=== PATIENT | female | born 1940 | race Caucasian/White ===

== ENCOUNTER 2018-06-10 07:21 | Day surgery (SDC) | payer MEDICARE, BC ==
[~2018-06-10 07:21] MED LIST: SODIUM CHLORIDE 0.9% 1,000 ML IV SCH; ceFAZolin IN SWFI 2 GM/20 ML SYRINGE IVP ONE
[2018-06-10 08:02] LABS: Glucose,Whole Blood 137 mg/dL (75-99)
[2018-06-10 08:04] VITALS: RESP 16; TEMP 98.5
[2018-06-10 08:22] LABS: Basophils % (A) 0 %; Eosinophils # (A) 0.2 k/uL (0-0.7); Eosinophils % (A) 4 %; HCT 20.8 % (34.0-46.0); Lymphocytes # (A) 0.7 k/uL (1.0-4.8); Lymphocytes % (A) 15 %; MCH 30.4 pg (25.0-35.0); MCHC 33.5 g/dL (31.0-37.0); MCV 90.7 fL (80.0-100.0); Mean Platelet Volume 7.1; Monocytes # (A) 0.3 k/uL (0-1.0); Monocytes % (A) 5 %; Neutrophils # (A) 3.6 k/uL (1.3-7.7); Neutrophils % (A) 74 %; Platelet Count 167 k/uL (150-450); RBC 2.29 m/uL (3.80-5.40); RDW 14.1 % (11.5-15.5); WBC 4.8 k/uL (3.8-10.6)
[2018-06-10] MEDS ORDERED: MIDAZOLAM (PF) 2 MG/2 ML VIAL IV ONE (09:16)
[2018-06-10] MEDS: LIDOCAINE 1% INJ 10MG/ML (20 ML MDV) ONE ×2 (09:19→09:20)
[2018-06-10] MEDS ORDERED: ACETAMINOPHEN TAB 325 MG TAB PO PRN (09:31)
--- NOTE | 2018-06-10 09:35 | P.PCN ---
Date of Procedure: 06/10/18 Postoperative Diagnosis: History of loop recorder insertion Procedure(s) Performed: Removal of the loop recorder Description of Procedure: This 78-year-old female had history of loop recorder insertion. Patient was referred for removal of the loop recorder. Patient was brought to the lab in a fasting state. She was prepped and draped in the usual fashion. The skin over the existing device was infiltrated with lidocaine. She small incision was made in the medial end of the device. The device was pulled out of the pocket without any difficulty. 2 stay sutures were applied to close the incision. No other complications. Plan: Patient will be discharged home later today. Follow-up in the office in about one week time.
[2018-06-10] MEDS ORDERED: amLODIPine 5 MG TAB ONE (09:44)
[2018-06-10 11:45] VITALS: BP 145/73; PULSE 62
== END 2018-06-10 11:45 | disposition home or self-care (01) ==
LOC: CATHEP 07:21
PROVIDERS: ATTEND Internal Medicine Cardiovascular Disease
DX: Z45.09 Encounter for adjustment and management of other cardiac device (principal); I25.10 Atherosclerotic heart disease of native coronary artery without angina pectoris; E78.2 Mixed hyperlipidemia; E11.9 Type 2 diabetes mellitus without complications; I10 Essential (primary) hypertension; F32.9 Major depressive disorder, single episode, unspecified; Z82.49 Family history of ischemic heart disease and other diseases of the circulatory system; Z79.82 Long term (current) use of aspirin; Z79.899 Other long term (current) drug therapy; Z79.4 Long term (current) use of insulin; Z79.890 Hormone replacement therapy; Z79.1 Long term (current) use of non-steroidal anti-inflammatories (NSAID)
CPT/HCPCS: 85025; 33286; J2001; J0690; J2250

== ENCOUNTER 2018-06-29 07:51 | Day surgery (SDC) | payer MEDICARE, BC ==
[2018-06-28 10:03] VITALS: BMI 29.2
[2018-06-29 08:40] VITALS: TEMP 97.9
[2018-06-29] MEDS ORDERED: NA PHOS,M-B/NA PHOS,DI-BA 133 ML ENEMA RECTAL ONE ×2 (08:50→08:59)
[2018-06-29 09:14] LABS: Glucose,Whole Blood 262 mg/dL (75-99)
[2018-06-29] MEDS: LACTATED RINGERS 1,000 ML IV SCH ×2 (09:19→09:51)
[2018-06-29] MEDS ORDERED: INSULIN ASPART (NovoLOG) 100 UNIT/ML VIAL SQ ONE (09:44)
[2018-06-29] MEDS ORDERED: fentaNYL (PF) 50 MCG/ML 2 ML AMP ONE (09:55)
[2018-06-29] MEDS ORDERED: PROPOFOL 10 MG/ML 20 ML VIAL IV ONE (09:55)
[2018-06-29] MEDS ORDERED: LIDOCAINE 1% INJ 10MG/ML (20 ML MDV) ONE (09:55)
[2018-06-29 10:29] VITALS: RESP 16
[2018-06-29 10:46] VITALS: BP 106/55; PULSE 57
--- NOTE | 2018-06-29 11:12 | P.PCN ---
Date of Procedure: 06/29/18 Procedure(s) Performed: Procedures: 1. Esophagogastroduodenoscopy and biopsy. 2. Colonoscopy and biopsy. Preoperative diagnosis: Iron deficiency anemia and incontinence of stools. Postoperative diagnosis: 1. Sliding hiatal hernia with LA grade B distal esophagitis. 2. Mild gastritis and duodenitis. 3. Multiple biopsies obtained from the duodenum, antrum and esophagus. 4. Colon and terminal ileum within normal limits. 5. Multiple biopsies obtained from the terminal ileum and right colon. Preparation: HalfLytely prep. Sedation: Was provided by anesthesia. Brief clinical history: The patient is a 78-year-old female who was evaluated in the office last month regarding complaints of fecal incontinence, weight loss and anemia. Her last colonoscopy was approximately 10 years prior. There is family history of colon cancer in her sister. Procedure: With the patient on her left lateral decubitus position and after informed consent and adequate sedation, I passed the Olympus-GIF H 190 video upper endoscope through the cricopharyngeus down the esophagus. GE junction was around 36 cm from the incisors and there was a 2 cm sliding hiatal hernia. The distal esophagus showed couple short erosions terminating at the level of the GE junction consistent with LA grade B distal esophagitis. There were no strictures or Crystal's esophagus. The endoscope was then passed into the stomach which was insufflated with air and inspected in detail including the retroflex view in the cardia. There was some mottling and erythema in the antrum but no ulcers or erosions. Pyloric channel did not show any ulcers. Duodenal bulb, post bulbar area and descending duodenum showed some mottling and erythema with no ulcers or gastric outlet obstruction. I obtained biopsies from the duodenum, antrum and esophagus then the endoscope was withdrawn and I proceeded to perform the colonoscopy. The perianal area was inspected and it did not show any fissures or fistulas. There were no masses felt on digital rectal examination. The Olympus CFH 190L video colonoscope was then inserted in the rectum in the usual fashion and advanced to the cecum. I intubated the ileocecal valve and examined the terminal ileum. Terminal ileum and colon appeared healthy with no edema, erythema, friability, ulceration, exudation or spontaneous bleeding. No polyps or tumors were seen or any obvious diverticular disease or other pathology. I obtained biopsies from the right colon and terminal ileum then I retroflexed the endoscope in the rectum before the endoscope was withdrawn. The patient tolerated the procedure well. Plan: The patient was reassured and I discussed with her family. Will await biopsy results. Further plans based on her course and biopsy results. I will keep you updated on her progress.
== END 2018-06-29 11:14 | disposition home or self-care (01) ==
LOC: ORWHC2ENDO 07:51
DX: K29.80 Duodenitis without bleeding (principal); K29.50 Unspecified chronic gastritis without bleeding; D50.9 Iron deficiency anemia, unspecified; R15.9 Full incontinence of feces; K44.9 Diaphragmatic hernia without obstruction or gangrene; I10 Essential (primary) hypertension; M19.90 Unspecified osteoarthritis, unspecified site; K20.9 Esophagitis, unspecified; F32.9 Major depressive disorder, single episode, unspecified; E11.9 Type 2 diabetes mellitus without complications; Z79.4 Long term (current) use of insulin; Z79.899 Other long term (current) drug therapy; Z80.0 Family history of malignant neoplasm of digestive organs; Z91.040 Latex allergy status; Z96.653 Presence of artificial knee joint, bilateral
CPT/HCPCS: 88305; 45380; 43239; J2001; J3010; J2704

== ENCOUNTER 2018-12-31 09:32 | Inpatient (IN) | payer MEDICARE, BC ==
[2018-12-31] MEDS ORDERED: ACETAMINOPHEN TAB 500 MG TAB PO STA (10:00)
[2018-12-31] MEDS ORDERED: IBUPROFEN 600 MG TAB PO STA (10:00)
--- NOTE | 2018-12-31 10:02 | ED ---
Back Pain HPI - General Chief Complaint: Back Pain/Injury Stated Complaint: back pain Time Seen by Provider: 12/31/18 09:35 Source: patient, EMS, RN notes reviewed, old records reviewed Limitations: no limitations - History of Present Illness Initial Comments: Routine is a 78-year-old female. She presents today for evaluation for back pain, and pain range on her right leg for the past few weeks. She also complains of fever and generally feeling unwell and weak. Patient states she's also had a cough and some cold like symptoms. She rested emergency department with a fever 101.38. She's been on antibiotics for urinary tract infections, has completed 2 rounds of antibiotics that were given to her by Dr. Crooks. She has no urine cultures have facility at this time. She states that she continues to have some dip mild dysuria. She is supposed to have 3 days of antibiotics left. - Related Data Home Medications Medication Instructions Recorded Confirmed Citalopram Hydrobromide 40 mg PO HS 01/02/16 12/31/18 [Citalopram HBr] Losartan [Cozaar] 25 mg PO BID 01/02/16 12/31/18 buPROPion XL [Wellbutrin XL] 300 mg PO DAILY 01/02/16 12/31/18 Insulin Glargine,Hum.rec.anlog See Protocol SQ HS 06/10/18 12/31/18 [Basaglar Kwikpen U-100] Insulin Aspart [NovoLOG Flexpen] See Protocol SQ TID 12/31/18 12/31/18 Nitrofurantoin Monohyd/M-Cryst 100 mg PO Q12HR 12/31/18 12/31/18 [Macrobid] Allergies Allergy/AdvReac Type Severity Reaction Status Date / Time latex Allergy Unknown Rash/Hives Verified 12/31/18 11:30 Review of Systems ROS Statement: Those systems with pertinent positive or pertinent negative responses have been documented in the HPI. ROS Other: All systems not noted in ROS Statement are negative. Past Medical History Past Medical History: Chest Pain / Angina, Diabetes Mellitus, Hypertension, Osteoarthritis (OA) Additional Past Medical History / Comment(s): VARICOSE VEINS, BACK PAIN, intermittent stool incontinence last 3-4 months, intermittent abd. pain History of Any Multi-Drug Resistant Organisms: None Reported Past Surgical History: Hysterectomy, Joint Replacement Additional Past Surgical History / Comment(s): ELIJAH TOTAL KNEES, LEFT THUMB, LOOP RECORDER removed, left shoulder replacement Past Anesthesia/Blood Transfusion Reactions: No Reported Reaction Type of Cardiac Device: Loop Device Placement Date:: 2014 Past Psychological History: Anxiety, Depression Smoking Status: Never smoker Past Alcohol Use History: None Reported Past Drug Use History: None Reported - Past Family History Sister(s) Family Medical History: Cancer Additional Family Medical History / Comment(s): SISTER #1 LEUKEMIA. SISTER #2 STOMACH CA General Exam - General Exam Comments Initial Comments: This is a 70-year-old female. Alert and oriented 3. Limitations: no limitations General appearance: alert, in no apparent distress Head exam: Present: atraumatic, normocephalic, normal inspection Eye exam: Present: normal appearance, other (patient on oxygen) ENT exam: Present: normal exam, mucous membranes moist Neck exam: Present: normal inspection. Absent: tenderness, meningismus, lymphadenopathy Respiratory exam: Present: normal lung sounds bilaterally Cardiovascular Exam: Present: regular rate, normal rhythm, normal heart sounds. Absent: systolic murmur, diastolic murmur, rubs, gallop, clicks GI/Abdominal exam: Present: soft, tenderness (LLQ tenderness), normal bowel sounds. Absent: distended, guarding, rebound, rigid Extremities exam: Present: normal inspection, full ROM, normal capillary refill. Absent: tenderness, pedal edema, joint swelling, calf tenderness Back exam: Present: normal inspection Neurological exam: Present: alert, oriented X3, CN II-XII intact Psychiatric exam: Present: normal affect, normal mood Skin exam: Present: warm, dry, intact, normal color. Absent: rash Course Vital Signs 12/31/18 12/31/18 12/31/18 09:35 11:15 12:10 Temperature 101.3 F H 101.1 F H 102 F H Pulse Rate 99 97 88 Respiratory 22 22 22 Rate Blood Pressure 197/93 188/78 149/62 O2 Sat by Pulse 94 L 96 96 Oximetry 12/31/18 13:15 Temperature 99.6 F Pulse Rate 81 Respiratory 20 Rate Blood Pressure 131/57 O2 Sat by Pulse 98 Oximetry - Reevaluation(s) Reevaluation #1: 12/31/18 12:38 is reevaluated this time, resting in bed, she denies any chest pain or shortness of breath. Continues to have fever 102. Medical Decision Making - Medical Decision Making This is a 70-year-old female presents today for evaluation for concern for fever, generalized pain and weakness. She complains of upper respiratory infection last week but denies any coughing or chest pain. Patient complains of some left-sided abdominal pain lower back pain. She has been treated for UTIs with multiple rounds of antibiotics. Recently on Macrobid. This time her urine sample appears clean. We did obtain a culture. Blood cultures were completed. She has a fever 102 upon arrival. She was given IV fluids Motrin Tylenol. Elevated lactic acid 2.5. Some leukocytosis noted at 13,000. Patient's chest x-ray shows no acute changes. Flu testing was negative. Patient's obtained complains some minor pain in her abdomen, discussed concern for possible diverticulitis would proceed with a computed tomography scan. Computed tomography scan shows no evidence of diverticulitis but does show evidence of pneumonic infiltrate concerning for pneumonia. We'll treat the Patient with Rocephin and azithromycin at this time. Patient is agreeable to this plan. His custody case with Dr. Mera who discussed this case with Dr. Polo patient's PCP who will admit the Patient for IV antibiotics and fluids. - Lab Data Result diagrams: 12/31/18 10:10 12/31/18 10:10 Lab Results 12/31/18 12/31/18 12/31/18 Range/Units 10:10 10:10 10:10 WBC 13.6 H (3.8-10.6) k/uL RBC 4.36 (3.80-5.40) m/uL Hgb 13.2 (11.4-16.0) gm/dL Hct 39.2 (34.0-46.0) % MCV 89.8 (80.0-100.0) fL MCH 30.4 (25.0-35.0) pg MCHC 33.8 (31.0-37.0) g/dL RDW 12.8 (11.5-15.5) % Plt Count 267 (150-450) k/uL Neutrophils % 92 % Lymphocytes % 3 % Monocytes % 3 % Eosinophils % 1 % Basophils % 0 % Neutrophils # 12.4 H (1.3-7.7) k/uL Lymphocytes # 0.5 L (1.0-4.8) k/uL Monocytes # 0.4 (0-1.0) k/uL Eosinophils # 0.2 (0-0.7) k/uL Basophils # 0.0 (0-0.2) k/uL PT (9.0-12.0) sec INR (<1.2) APTT (22.0-30.0) sec Sodium 138 (137-145) mmol/L Potassium 4.4 (3.5-5.1) mmol/L Chloride 104 (98-107) mmol/L Carbon Dioxide 24 (22-30) mmol/L Anion Gap 10 mmol/L BUN 17 (7-17) mg/dL Creatinine 0.97 (0.52-1.04) mg/dL Est GFR (CKD-EPI)AfAm 65 (>60 ml/min/1.73 sqM) Est GFR (CKD-EPI)NonAf 56 (>60 ml/min/1.73 sqM) Glucose 209 H (74-99) mg/dL POC Glucose (mg/dL) (75-99) mg/dL POC Glu Olive Brine Tester ID Plasma Lactic Acid Miquel (0.7-2.0) mmol/L Calcium 8.7 (8.4-10.2) mg/dL Total Bilirubin 0.6 (0.2-1.3) mg/dL AST 25 (14-36) U/L ALT 19 (9-52) U/L Alkaline Phosphatase 113 (38-126) U/L Total Protein 7.3 (6.3-8.2) g/dL Albumin 3.7 (3.5-5.0) g/dL Urine Color Urine Appearance (Clear) Urine pH (5.0-8.0) Ur Specific [place] (1.001-1.035) Urine Protein (Negative) Urine Glucose (UA) (Negative) Urine Ketones (Negative) Urine Blood (Negative) Urine Nitrite (Negative) Urine Bilirubin (Negative) Urine Urobilinogen (<2.0) mg/dL Ur Leukocyte Esterase (Negative) Urine RBC (0-5) /hpf Urine WBC (0-5) /hpf Urine Mucus (None) /hpf Influenza Type A RNA Not Detected (Not Detectd) Influenza Type B (PCR) Not Detected (Not Detectd) 12/31/18 12/31/18 12/31/18 Range/Units 10:10 10:10 11:15 WBC (3.8-10.6) k/uL RBC (3.80-5.40) m/uL Hgb (11.4-16.0) gm/dL Hct (34.0-46.0) % MCV (80.0-100.0) fL MCH (25.0-35.0) pg MCHC (31.0-37.0) g/dL RDW (11.5-15.5) % Plt Count (150-450) k/uL Neutrophils % % Lymphocytes % % Monocytes % % Eosinophils % % Basophils % % Neutrophils # (1.3-7.7) k/uL Lymphocytes # (1.0-4.8) k/uL Monocytes # (0-1.0) k/uL Eosinophils # (0-0.7) k/uL Basophils # (0-0.2) k/uL PT 10.3 (9.0-12.0) sec INR 1.0 (<1.2) APTT 22.4 (22.0-30.0) sec Sodium (137-145) mmol/L Potassium (3.5-5.1) mmol/L Chloride (98-107) mmol/L Carbon Dioxide (22-30) mmol/L Anion Gap mmol/L BUN (7-17) mg/dL Creatinine (0.52-1.04) mg/dL Est GFR (CKD-EPI)AfAm (>60 ml/min/1.73 sqM) Est GFR (CKD-EPI)NonAf (>60 ml/min/1.73 sqM) Glucose (74-99) mg/dL POC Glucose (mg/dL) (75-99) mg/dL POC Glu Olive Brine Tester ID Plasma Lactic Acid Miquel 2.5 H* (0.7-2.0) mmol/L Calcium (8.4-10.2) mg/dL Total Bilirubin (0.2-1.3) mg/dL AST (14-36) U/L ALT (9-52) U/L Alkaline Phosphatase (38-126) U/L Total Protein (6.3-8.2) g/dL Albumin (3.5-5.0) g/dL Urine Color Yellow Urine Appearance Clear (Clear) Urine pH 7.0 (5.0-8.0) Ur Specific [place] 1.012 (1.001-1.035) Urine Protein 1+ H (Negative) Urine Glucose (UA) 1+ H (Negative) Urine Ketones Negative (Negative) Urine Blood Negative (Negative) Urine Nitrite Negative (Negative) Urine Bilirubin Negative (Negative) Urine Urobilinogen <2.0 (<2.0) mg/dL Ur Leukocyte Esterase Negative (Negative) Urine RBC 1 (0-5) /hpf Urine WBC 1 (0-5) /hpf Urine Mucus Rare H (None) /hpf Influenza Type A RNA (Not Detectd) Influenza Type B (PCR) (Not Detectd) 12/31/18 12/31/18 Range/Units 11:25 13:14 WBC (3.8-10.6) k/uL RBC (3.80-5.40) m/uL Hgb (11.4-16.0) gm/dL Hct (34.0-46.0) % MCV (80.0-100.0) fL MCH (25.0-35.0) pg MCHC (31.0-37.0) g/dL RDW (11.5-15.5) % Plt Count (150-450) k/uL Neutrophils % % Lymphocytes % % Monocytes % % Eosinophils % % Basophils % % Neutrophils # (1.3-7.7) k/uL Lymphocytes # (1.0-4.8) k/uL Monocytes # (0-1.0) k/uL Eosinophils # (0-0.7) k/uL Basophils # (0-0.2) k/uL PT (9.0-12.0) sec INR (<1.2) APTT (22.0-30.0) sec Sodium (137-145) mmol/L Potassium (3.5-5.1) mmol/L Chloride (98-107) mmol/L Carbon Dioxide (22-30) mmol/L Anion Gap mmol/L BUN (7-17) mg/dL Creatinine (0.52-1.04) mg/dL Est GFR (CKD-EPI)AfAm (>60 ml/min/1.73 sqM) Est GFR (CKD-EPI)NonAf (>60 ml/min/1.73 sqM) Glucose (74-99) mg/dL POC Glucose (mg/dL) 218 H 176 H (75-99) mg/dL POC Glu Olive Brine Tester ID Greg Garcia Plasma Lactic Acid Miquel (0.7-2.0) mmol/L Calcium (8.4-10.2) mg/dL Total Bilirubin (0.2-1.3) mg/dL AST (14-36) U/L ALT (9-52) U/L Alkaline Phosphatase (38-126) U/L Total Protein (6.3-8.2) g/dL Albumin (3.5-5.0) g/dL Urine Color Urine Appearance (Clear) Urine pH (5.0-8.0) Ur Specific [place] (1.001-1.035) Urine Protein (Negative) Urine Glucose (UA) (Negative) Urine Ketones (Negative) Urine Blood (Negative) Urine Nitrite (Negative) Urine Bilirubin (Negative) Urine Urobilinogen (<2.0) mg/dL Ur Leukocyte Esterase (Negative) Urine RBC (0-5) /hpf Urine WBC (0-5) /hpf Urine Mucus (None) /hpf Influenza Type A RNA (Not Detectd) Influenza Type B (PCR) (Not Detectd) 12/31/18 10:30 EKG performed at 1014 shows sinus tachycardia multiple moderate voltage criteria for LVH. May be normal variant. Borderline EKG. Ventricular rate of 102 bpm. Verbal is 122 ms. QS duration is 76 ms. QT QTc is 344/448 ms. - Radiology Data Radiology results: report reviewed CXR No evidence for acute pulmonary disease. CT head and pelvis shows patchy basilar infiltrates may reflect pneumonia. No Acute intra-abdominal process identified at this time. Disposition Clinical Impression: Fever, Pneumonia Disposition: ADMITTED IP TO THIS HOSP Condition: Stable Is patient prescribed a controlled substance at d/c from ED?: No Referrals: Jon Polo DO [Primary Care Provider] - 1-2 days Time of Disposition: 14:05
[2018-12-31] MEDS: SODIUM CHLORIDE 0.9% 500 ML 500 ML IV SCH ×4 (10:28→11:39)
[2018-12-31 10:32] LABS: Basophils % (A) 0 %; Eosinophils # (A) 0.2 k/uL (0-0.7); Eosinophils % (A) 1 %; HCT 39.2 % (34.0-46.0); HGB 13.2 gm/dL (11.4-16.0); Lymphocytes # (A) 0.5 k/uL (1.0-4.8); Lymphocytes % (A) 3 %; MCH 30.4 pg (25.0-35.0); MCHC 33.8 g/dL (31.0-37.0); MCV 89.8 fL (80.0-100.0); Mean Platelet Volume 5.8; Monocytes # (A) 0.4 k/uL (0-1.0); Monocytes % (A) 3 %; Neutrophils # (A) 12.4 k/uL (1.3-7.7); Neutrophils % (A) 92 %; Platelet Count 267 k/uL (150-450); RBC 4.36 m/uL (3.80-5.40); RDW 12.8 % (11.5-15.5); WBC 13.6 k/uL (3.8-10.6)
[2018-12-31 10:39] LABS: Appearance,Urine Clear (Clear); Bilirubin,Urine Negative (Negative); Blood,Urine Negative (Negative); Color,Urine Yellow; Glucose,Urine (UA) 1+ (Negative); Ketones,Urine Negative (Negative); Leukocyte Esterase,Urine Negative (Negative); Mucus,Urine Rare /hpf; Nitrite,Urine Negative (Negative); Protein,Urine 1+ (Negative); RBC,Urine 1 /hpf (0-5); Specific Gravity,Urine 1.012 (1.001-1.035); Urobilinogen,Urine <2.0 mg/dL (<2.0)
[2018-12-31 10:44] LABS: Albumin 3.7 g/dL (3.5-5.0); Calcium 8.7 mg/dL (8.4-10.2); Potassium 4.4 mmol/L (3.5-5.1); Total Bilirubin 0.6 mg/dL (0.2-1.3); Total Protein 7.3 g/dL (6.3-8.2)
--- NOTE | 2018-12-31 10:53 | XR ---
EXAMINATION TYPE: XR chest 2V DATE OF EXAM: 12/31/2018 COMPARISON: None HISTORY: Shortness of breath TECHNIQUE: Frontal and lateral views of the chest are obtained. FINDINGS: Scattered senescent parenchymal changes noted. Hyperinflation compatible with COPD. No evidence for infiltrate. No evidence for atelectasis. Heart size is stable. Mediastinal structures are stable and grossly unremarkable. No evidence for hilar prominence. Degenerative changes dorsal spine. IMPRESSION: 1. No evidence for acute pulmonary disease.
[2018-12-31 11:26] LABS: Glucose,Whole Blood 218 mg/dL (75-99)
[2018-12-31 11:43] LABS: Partial Thromboplastin Time 22.4 sec (22.0-30.0); Prothrombin Time 10.3 sec (9.0-12.0)
[2018-12-31] MEDS: SODIUM CHLORIDE 0.9% 1,000 ML IV SCH ×4 (12:06→21:36)
[2018-12-31] MEDS ORDERED: cefTRIAXone IN SWFI 1,000 MG/10 ML SYRINGE IVP STA (12:37)
--- NOTE | 2018-12-31 13:13 | CT ---
EXAMINATION TYPE: CT abdomen pelvis w con DATE OF EXAM: 12/31/2018 COMPARISON: None HISTORY: LLQ pain with fever CT DLP: 1037.7 mGycm CONTRAST: CT scan of the abdomen and pelvis is performed without Oral Contrast and with IV Contrast, patient in jected with 100 mL of Isovue 300. FINDINGS: LUNG BASES-: No visible nodule. Patchy basilar densities may reflect pneumonic infiltrate. Correlate clinically. The left lower lobe. LIVER/GB: No calcified gallstones. No space occupying hepatic lesion. Biliary tree is of normal ca liber. PANCREAS: No inflammation. No distinct mass. SPLEEN: No splenic enlargement. No lesion seen. Calcified splenic granuloma. ADRENALS: No nodule. No thickening. KIDNEYS/BLADDER: No hydronephrosis. No nephrolithiasis. No distinct renal mass. Urinary bladder g rossly unremarkable. BOWEL: Normal appendix. Normal bowel caliber. No inflammation. GENITAL ORGANS: No gross abnormality. LYMPH NODES: No greater than 1cm abdominal or pelvic lymph nodes are appreciated. AORTA: No significant abnormality. OSSEOUS STRUCTURES: No significant abnormality is seen. OTHER: No significant additional abnormality is seen. IMPRESSION: 1. Patchy basilar infiltrates may reflect pneumonia. 2. No acute intra-abdominal process appreciated at this time.
[2018-12-31 13:16] LABS: Glucose,Whole Blood 176 mg/dL (75-99)
[2018-12-31] MEDS ORDERED: AZITHROMYCIN 500 MG in SODIUM CHLORIDE 0.9% 250 ML IVPB STA (14:05)
[2018-12-31] MEDS ORDERED: PNEUMONIA PROTOCOL UTILIZED 1 EACH MISC PO PRN (14:05)
[2018-12-31 15:07] LABS: Glucose,Whole Blood 196 mg/dL (75-99)
[2018-12-31 16:46] LABS: Glucose,Whole Blood 195 mg/dL (75-99)
[2018-12-31] MEDS: IPRATROPIUM-ALBUTEROL 3 ML NEB INHALATION SCH ×2 (16:51→20:36)
[2018-12-31] MEDS: methylPREDNISolone SOD SUCCI 125 MG/2 ML VIAL IV SCH (17:28)
[2018-12-31] MEDS: INSULIN ASPART (NovoLOG) 100 UNIT/ML VIAL SQ SCH ×2 (17:28→21:33)
[2018-12-31 17:50] VITALS: BMI 31.8
[2018-12-31] MEDS: ACETAMINOPHEN TAB 325 MG TAB PO PRN (18:03)
[2018-12-31 21:21] LABS: Glucose,Whole Blood 364 mg/dL (75-99)
[2018-12-31] MEDS: INSULIN DETEMIR (LEVEMIR) 100 UNIT/ML SYR SQ SCH (21:33)
[2018-12-31] MEDS: CITALOPRAM HYDROBROMIDE 20 MG TAB PO SCH (21:33)
[2018-12-31] MEDS: LOSARTAN 25 MG TAB PO SCH (21:33)
[2019-01-01] MEDS: methylPREDNISolone SOD SUCCI 125 MG/2 ML VIAL IV SCH ×3 (02:12→13:03)
[2019-01-01] MEDS: SODIUM CHLORIDE 0.9% 1,000 ML IV SCH ×4 (02:13→13:12)
[2019-01-01] MEDS: ACETAMINOPHEN TAB 325 MG TAB PO PRN ×2 (02:36→13:03)
[2019-01-01 02:40] LABS: Glucose,Whole Blood 287 mg/dL (75-99)
[2019-01-01 07:17] LABS: Glucose,Whole Blood 344 mg/dL (75-99)
--- NOTE | 2019-01-01 07:41 | XR ---
EXAMINATION TYPE: XR chest 2V DATE OF EXAM: 01/01/2019 HISTORY: pneumonia. REFERENCE: Previous study dated 12/31/2018. FINDINGS: There is a left shoulder arthroplasty in place. There is worsening vascular congestion. There is evidence of pulmonary edema. Heart size upper limits of normal. There are small, bilateral effusions. IMPRESSION: WORSENING CHANGES OF PULMONARY EDEMA. SUPERIMPOSED PNEUMONIA COULD NOT BE EXCLUDED.
[2019-01-01] MEDS: INSULIN ASPART (NovoLOG) 100 UNIT/ML VIAL SQ SCH ×4 (07:48→20:53)
[2019-01-01] MEDS: IPRATROPIUM-ALBUTEROL 3 ML NEB INHALATION SCH ×4 (09:06→19:50)
[2019-01-01] MEDS: LOSARTAN 25 MG TAB PO SCH ×2 (09:51→20:53)
[2019-01-01] MEDS: buPROPion XL 300 MG TAB.ER.24H PO SCH (09:52)
[2019-01-01 11:48] LABS: Glucose,Whole Blood 431 mg/dL (75-99)
[2019-01-01] MEDS: AZITHROMYCIN 500 MG in SODIUM CHLORIDE 0.9% 250 ML IVPB SCH (13:03)
[2019-01-01 14:01] LABS: Hemoglobin A1C 9.7 % (4.0-6.0)
--- NOTE | 2019-01-01 16:28 | P.HPIM ---
History of Present Illness H&P Date: 01/01/19 Chief Complaint: Chills and rigors Ms. Davila is a 78-year-old female with a past medical history of diabetes mellitus, hypertension, osteoarthritis coming into the hospital with a chief complaint of chills and rigors. Patient states that she has been generally feeling weak and tired and was having urinary incontinence and immediately. So she was seen by urology and gynecology and was told that her bladder was slightly lower than normal but not to the extent where she needs surgery. She was also told that she has a UTI and and has been taking antibiotics for the pas t few days. Also reports stool incontinence for the past 5-6 months intermittently. She also reports some tingling sensation going on in her left foot for the past few months. In the past couple of days patient noticed that she has been having rigors and feeling sick so came into the ED for further evaluation. At the time of admission in the ER patient was found to have a temperature of 101.3 along with an elevated white count. So she had a chest x- ray and also CT of her abdomen and pelvis which showed patchy basilar infiltrates that reflect pneumonia. So the patient has been started on ceftriaxone and Zithromax along with Solu-Medrol and IV fluids and admitted to the floor. Since being on the floors patient's blood sugars have been running on the higher side. She also got a repeat chest x-ray as she was complaining of difficulty in breathing this morning which showed pulmonary vascular congestion. Currently the patient is lying in bed appears to be mildly short of breath. She denies having any difficulty in breathing but was having cough for the past couple of days. She was tested negative for influenza in the ED. Patient complains of generalized weakness, chills and thinks she might have had fever at home. She denies having any dysuria or hematuria. No abdominal pain. No diarrhea or constipation. Complains of urinary and bowel and incontinence intermittently g oing on for few months. Denies having any syncopal episodes. No weakness in her extremities. Patient states that she had a fall 3 or 4 times in the past couple of months but did not hurt herself. Review of Systems REVIEW OF SYSTEMS: PSYCH: No anxiety or depression NEURO:No c/o weakness of the extremties, No facial droop, No speech abnormalities. VASCULAR: No lower extremity swelling HEMATOLOGIC: No history of easy bleeding and bruising . No recent infections . RESPIRATORY: No SOB, No chest discomfort. IMMUNE: No infections INTEGUMENT: no rashes OPHTHALMOLOGIC: No blurry vision and no eye discharge : Recent UTI PAPER SUPERVISOR: No bleeding PV CARDIAC: No chest pain , shortness of breath , paroxysmal nocturnal dyspnea MUSCULOSKELETAL : No Aches or pains in the joints or muscles. GI: No abdominal pain, Nausea or vomiting. No constipation or diarrhea. 30 nervous system stem negative except for the mentioned above Past Medical History Past Medical History: Chest Pain / Angina, Diabetes Mellitus, Hypertension, Osteoarthritis (OA) Additional Past Medical History / Comment(s): VARICOSE VEINS, BACK PAIN, intermittent stool incontinence last 3-4 months, intermittent abd. pain History of Any Multi-Drug Resistant Organisms: None Reported Past Surgical History: Hysterectomy, Joint Replacement Additional Past Surgical History / Comment(s): ELIJAH TOTAL KNEES, LEFT THUMB, LOOP RECORDER removed, left shoulder replacement Past Anesthesia/Blood Transfusion Reactions: No Reported Reaction Type of Cardiac Device: Loop Device Placement Date:: 2014 Past Psychological History: Anxiety, Depression Smoking Status: Never smoker Past Alcohol Use History: None Reported Past Drug Use History: None Reported - Past Family History Sister(s) Family Medical History: Cancer Additional Family Medical History / Comment(s): SISTER #1 LEUKEMIA. SISTER #2 STOMACH CA Medications and Allergies Home Medications Medication Instructions Recorded Confirmed Type Citalopram Hydrobromide 40 mg PO HS 01/02/16 12/31/18 History [Citalopram HBr] Losartan [Cozaar] 25 mg PO BID 01/02/16 12/31/18 History buPROPion XL [Wellbutrin XL] 300 mg PO DAILY 01/02/16 12/31/18 History Insulin Glargine,Hum.rec.anlog See Protocol SQ HS 06/10/18 12/31/18 History [Basaglar Kwikpen U-100] Insulin Aspart [NovoLOG Flexpen] See Protocol SQ TID 12/31/18 12/31/18 History Nitrofurantoin Monohyd/M-Cryst 100 mg PO Q12HR 12/31/18 12/31/18 History [Macrobid] Allergies Allergy/AdvReac Type Severity Reaction Status Date / Time latex Allergy Unknown Rash/Hives Verified 12/31/18 11:30 Physical Exam Vitals: Vital Signs Temp Pulse Pulse Resp BP Pulse Ox 01/01/19 14:07 97.5 F L 98 18 134/63 97 01/01/19 12:30 76 01/01/19 12:18 76 01/01/19 09:15 80 01/01/19 09:06 80 01/01/19 07:00 97.6 F 64 14 184/74 99 01/01/19 04:35 16 01/01/19 02:15 16 12/31/18 20:49 78 12/31/18 20:36 76 98 12/31/18 19:48 98.1 F 71 16 143/67 99 Intake and Output 01/01/19 01/01/19 01/01/19 06:59 14:59 22:59 Intake Total 592 Balance 592 Intake: Oral 592 Other: Voiding Method Toilet # Voids 1 1 GEN. APPEARANCE: Mild shortness of breath HEAD EXAM: atraumatic, normocephalic, normal inspection EYE EXAM: normal appearance, PERRL, EOMI. Absent: scleral icterus, conjunctival injection, periorbital swelling ENT EXAM: normal exam, mucous membranes moist NECK EXAM: normal inspection. Absent: tenderness, meningismus, full ROM, lymphadenopathy RESPIRATORY EXAM: normal lung sounds bilaterally. No wheezing. Few crackles at the lower lung bases. CARDIOVASCULAR EXAM: Tachycardia. S1 and S2 heard. GI/ABDOMINAL EXAM: soft, normal bowel sounds. No guarding or rigidity. No suprapubic tenderness. EXTREMITIES EXAM: No edema. BACK EXAM: No point tenderness. Rectal exam : Mildly decreased rectal tone. NEUROLOGICAL EXAM: alert, oriented X3, no focal neurological deficits. Strength is 4 out of 5 in all 4 extremities. Gait is normal- she was able to take 3-4 steps but was feeling weak and went back to bed PSYCHIATRIC EXAM: normal affect, normal mood SKIN EXAM: warm, dry, intact, normal color. Absent: rash Results CBC & Chem 7: 12/31/18 10:10 01/01/19 16:16 Labs: Abnormal Lab Results - Last 24 Hours (Table) 12/31/18 12/31/18 12/31/18 Range/Units 10:10 16:44 18:37 POC Glucose (mg/dL) 195 H (75-99) mg/dL Hemoglobin A1c 9.7 H (4.0-6.0) % Plasma Lactic Acid Miquel 3.5 H* (0.7-2.0) mmol/L 12/31/18 01/01/19 01/01/19 Range/Units 21:20 02:39 07:15 POC Glucose (mg/dL) 364 H 287 H 344 H (75-99) mg/dL Hemoglobin A1c (4.0-6.0) % Plasma Lactic Acid Miquel (0.7-2.0) mmol/L 01/01/19 Range/Units 11:47 POC Glucose (mg/dL) 431 H (75-99) mg/dL Hemoglobin A1c (4.0-6.0) % Plasma Lactic Acid Miquel (0.7-2.0) mmol/L Microbiology - Last 24 Hours (Table) 12/31/18 10:10 Blood Culture - Preliminary Blood No Growth after 24 hours Thrombosis Risk Factor Assmnt - Choose All That Apply Each Factor Represents 1 point: Obesity (BMI >25) Each Risk Factor Represents 3 Points: Age 75 years or older Thrombosis Risk Factor Assessment Total Risk Factor Score: 4 Thrombosis Risk Factor Assessment Level: Moderate Risk Assessment and Plan Assessment: ASSESSMENT Sepsis secondary to pneumonia Tingling sensation in the left foot Urinary/bowel incontinence -intermittently Type 2 diabetes mellitus with hyperglycemia Pulmonary vascular congestion Hypertension History of left shoulder replacement PLAN: Patient has been started on ceftriaxone and Zithromax for her pneumonia which will be continued. As the patient is not wheezing will discontinue her Solu-Medrol. As a chest x-ray from this morning was showing pulmonary vascular congestion we'll discontinue the IV fluids. We'll check a d-dimer. As the patient has intermittent incontinence of bowel and bladder we will get an MRI of the lumbar spine. She has been restarted on all her home medications. Further recommendations to follow depending on the progress of the patient. The treatment plan was discussed in detail with the patient at bedside.
[2019-01-01 16:44] LABS: Glucose,Whole Blood 513 mg/dL (75-99)
[2019-01-01 18:23] LABS: Glucose,Whole Blood 501 mg/dL (75-99)
--- NOTE | 2019-01-01 18:55 | CT ---
EXAMINATION TYPE: CT chest angio for PE DATE OF EXAM: 01/01/2019 COMPARISON: None HISTORY: Shortness of breath. CT DLP: 371 mGycm Automated exposure control for dose reduction was used. CONTRAST: CT Chest for pulmonary embolism performed with with IV Contrast, patient injected with 80 mL of Isovu e 370. FINDINGS: There are 3-D post processed images. There are bilateral pleural effusions. Thoracic aorta is atheromatous. There is no aneurysm or dissec tion. Ascending aorta measures 3.3 cm. There are some peritracheal lymph nodes that measure up to 1.5 cm. There are no hilar masses. There is normal contrast opacification of the pulmonary arteries. I see no filling defect. There is some patchy infiltrate and atelectasis in both lungs with reticular density that is seen in the periphery and consistent with pulmonary interstitial fibrosis. There is some spurring in the thoracic spine. I see no bony destructive process. There is no compress ion fracture. The ribs appear intact. There are a few bilateral axillary lymph nodes that measure up to 1.8 cm. IMPRESSION: No evidence of pulmonary embolism. Pleural effusions with bilateral pulmonary infiltrates and atelectasis. There is underlying pulmonary interstitial fibrosis. There is mild mediastinal adenopathy.
[2019-01-01 20:42] LABS: Glucose,Whole Blood 391 mg/dL (75-99)
[2019-01-01] MEDS: INSULIN DETEMIR (LEVEMIR) 100 UNIT/ML SYR SQ SCH (20:53)
[2019-01-01] MEDS: CITALOPRAM HYDROBROMIDE 20 MG TAB PO SCH (20:53)
[2019-01-01] MEDS ORDERED: ENOXAPARIN 40 MG/0.4 ML SYRINGE SQ STA (21:53)
[2019-01-02] MEDS: SODIUM CHLORIDE 0.9% 1,000 ML IV SCH (01:16)
[2019-01-02 02:12] LABS: Glucose,Whole Blood 227 mg/dL (75-99)
[2019-01-02 05:02] LABS: Glucose,Whole Blood 197 mg/dL (75-99)
[2019-01-02] MEDS: IPRATROPIUM-ALBUTEROL 3 ML NEB INHALATION SCH ×5 (05:03→19:47)
[2019-01-02] MEDS ORDERED: FUROSEMIDE 10 MG/ML 4 ML VIAL IV STA (05:16)
[2019-01-02] MEDS ORDERED: FUROSEMIDE 10 MG/ML 2 ML VIAL IV ONE (05:25)
[2019-01-02] MEDS ORDERED: LABETALOL 200 MG TAB PO STA (05:26)
[2019-01-02] MEDS ORDERED: LORazepam 0.5 MG TAB PO ONE (05:27)
[2019-01-02 06:19] LABS: HCT 37.3 % (34.0-46.0); HGB 12.2 gm/dL (11.4-16.0); MCH 29.9 pg (25.0-35.0); MCHC 32.6 g/dL (31.0-37.0); MCV 91.9 fL (80.0-100.0); Mean Platelet Volume 6.8; Platelet Count 319 k/uL (150-450); RBC 4.06 m/uL (3.80-5.40); RDW 13.3 % (11.5-15.5)
--- NOTE | 2019-01-02 06:29 | XR ---
EXAM: XR Chest, 1 View CLINICAL HISTORY: XR Reason: sob TECHNIQUE: Frontal view of the chest. COMPARISON: 01/01/19 FINDINGS: Lungs: Worsening infiltrates bilaterally Pleural space: Unremarkable. No pneumothorax. Heart: Unremarkable. No cardiomegaly. Mediastinum: Unremarkable. Bones/joints: Unremarkable. IMPRESSION: Worsening infiltrates bilaterally
[2019-01-02 06:33] LABS: Calcium 8.8 mg/dL (8.4-10.2); Potassium 4.3 mmol/L (3.5-5.1)
[2019-01-02 07:04] LABS: Glucose,Whole Blood 162 mg/dL (75-99)
[2019-01-02] MEDS: INSULIN ASPART (NovoLOG) 100 UNIT/ML VIAL SQ SCH ×4 (07:42→20:36)
[2019-01-02 07:50] LABS: Band Neutrophils % 1 %; Myelocytes # (M) 0.28 k/uL (0); Myelocytes % 1 %; Neutrophils % (M) 88 %; Nucleated Red Blood Cells 0 /100 WBC (0-0); Total Cells Counted 200
[2019-01-02] MEDS: ACETAMINOPHEN TAB 325 MG TAB PO PRN ×2 (07:57→17:31)
[2019-01-02] MEDS: LOSARTAN 25 MG TAB PO SCH ×2 (07:58→20:44)
[2019-01-02] MEDS: buPROPion XL 300 MG TAB.ER.24H PO SCH (07:58)
[2019-01-02 10:22] LABS: Glucose,Whole Blood 54 mg/dL (75-99)
[2019-01-02 10:41] LABS: Glucose,Whole Blood 95 mg/dL (75-99)
[2019-01-02 11:54] LABS: Glucose,Whole Blood 84 mg/dL (75-99)
[2019-01-02] MEDS: AZITHROMYCIN 500 MG in SODIUM CHLORIDE 0.9% 250 ML IVPB SCH (12:53)
[2019-01-02 17:10] LABS: Glucose,Whole Blood 89 mg/dL (75-99)
--- NOTE | 2019-01-02 17:14 | P.PN ---
Subjective Progress Note Date: 01/02/19 Principal diagnosis: sepsis due to pneumonia Ms. Davila is a 78-year-old female with a past medical history of diabetes mellitus, hypertension, osteoarthritis coming into the hospital with a chief complaint of chills and rigors. Patient states that she has been generally feeling weak and tired and was having urinary incontinence and immediately. So she was seen by urology and gynecology and was told that her bladder was slightly lower than normal but not to the extent where she needs surgery. She was also told that she has a UTI and and has been taking antibiotics for the past few days. Also reports stool incontinence for the past 5-6 months intermittently. She also reports some tingling sensation going on in her left foot for the past few months. In the past couple of days patient noticed that she has been having rigors and feeling sick so came into the ED for further evaluation. At the time of admission in the ER patient was found to have a temperature of 101.3 along with an elevated white count. So she had a chest x- ray and also CT of her abdomen and pelvis which showed patchy basilar infiltrates that reflect pneumonia. So the patient has been started on ceftriaxone and Zithromax along with Solu-Medrol and IV fluids and admitted to the floor. Patient complains of generalized weakness, chills and thinks she might have had fever at home. She denies having any dysuria or hematuria. No abdominal pain. No diarrhea or constipation. Complains of urinary and bowel and incontinence intermittently going on for few months. Denies having any syncopal episodes. No weakness in her extremities. Patient states that she had a fall 3 or 4 times in the past couple of months but did not hurt herself. On 01/02/2019 -last night patient developed acute shortness of breath, her blood pressure was high. So she was given and dose of IV Lasix after which her symptoms subsided. Patient's blood pressure has been running on the higher side. Since being off of Solu-Medrol patient's blood sugars have been on the lower side. She is getting ceftriaxone and Zithromax for community-acquired pneumonia. Patient denies having any tingling and jerking sensation in her lower extremities or upper extremities. she denies having any fevers chills or rigors. She still complains of difficulty in breathing and is on3 L of nasal cannula saturating in the high 90s. There is a slight jump in her white count from yesterday probably because of steroids.she denies having any dysuria or hematuria. No abdominal pain nausea vomiting or diarrhea. Patient had a CT angiogram of the chest that was negative for PE but there are bilateral pulmonary infiltrates with atelectasis and underlying pulmonary interstitialfibrosis and mild mediastinal adenopathy. Active Medications Acetaminophen (Tylenol Tab) 650 mg PO Q6HR PRN PRN Reason: Fever and/ or Mild Pain Last Admin: 01/02/19 07:57 Dose: 650 mg Documented by: Albuterol/Ipratropium (Duoneb 0.5 Mg-3 Mg/3 Ml Soln) 3 ml INHALATION RT-QID [facility] Last Admin: 01/02/19 16:01 Dose: 3 ml Documented by: Alprazolam (Xanax) 0.25 mg PO TID PRN PRN Reason: Anxiety Bupropion HCl (Wellbutrin Xl) 300 mg PO DAILY [facility] Last Admin: 01/02/19 07:58 Dose: 300 mg Documented by: Citalopram Hydrobromide (Celexa) 40 mg PO HS [facility] Last Admin: 01/01/19 20:53 Dose: 40 mg Documented by: Enoxaparin Sodium (Lovenox) 40 mg SQ DAILY [facility] Sodium Chloride (Saline 0.9%) 1,000 mls @ 20 mls/hr IV .Q24H [facility] Last Admin: 01/02/19 01:16 Dose: Not Given Documented by: Ceftriaxone Sodium 1 gm/ (Sodium Chloride) 50 mls @ 100 mls/hr IVPB Q24HR [facility] Azithromycin 500 mg/ Sodium (Chloride) 250 mls @ 250 mls/hr IVPB DAILY [facility] Insulin Aspart (Novolog) 0 unit SQ ACHS [facility]; Protocol Last Admin: 01/02/19 12:14 Dose: Not Given Documented by: Insulin Detemir (Levemir) 30 unit SQ HS [facility] Last Admin: 01/01/19 20:53 Dose: 30 unit Documented by: Losartan Potassium (Cozaar) 25 mg PO BID [facility] Last Admin: 01/02/19 07:58 Dose: 25 mg Documented by: Miscellaneous Information (Pneumonia Protocol Utilized) 1 each PO ONCE PRN PRN Reason: Per Protocol Objective - Vital Signs Vital signs: Vital Signs Temp 98.4 F 01/02/19 13:32 Pulse 64 01/02/19 16:12 Resp 16 01/02/19 13:32 BP 154/76 01/02/19 13:32 Pulse Ox 96 01/02/19 13:32 Intake & Output 01/01/19 01/02/19 01/02/19 18:59 06:59 18:59 Intake Total 3423 989 7256 Output Total 500 1950 Balance 1188 90 -624 Weight 78.925 kg Intake: Intake, IV Titration 350 Amount Azithromycin 500 mg In 250 Sodium Chloride 0.9% 250 ml @ 250 mls/hr IVPB DAILY@1200 [facility] Rx#: [id number] cefTRIAXone 1 gm In 100 Sodium Chloride 0.9% 50 ml @ 100 mls/hr IVPB Q24HR [facility] Rx#:[id number] Oral 1188 590 976 Output: Urine 500 1950 Other: Voiding Method Toilet # Voids 1 1 - Exam GEN. APPEARANCE: Mild shortness of breath HENT : No pallor. No icterus. PERRLA. No JVD. RESPIRATORY EXAM: patient has dry crackles in the lower and middle lobes bilaterally. CARDIOVASCULAR EXAM: Tachycardia. S1 and S2 heard. GI/ABDOMINAL EXAM: soft, normal bowel sounds. No guarding or rigidity. No suprapubic tenderness. EXTREMITIES EXAM: No edema. NEUROLOGICAL EXAM: alert, oriented X3, no focal neurological deficits. Strength is 4 out of 5 in all 4 extremities. SKIN EXAM: warm, dry, intact, normal color. Absent: rash - Labs CBC & Chem 7: 01/02/19 05:54 01/02/19 05:54 Labs: Abnormal Lab Results - Last 24 Hours (Table) 01/01/19 01/01/19 01/01/19 Range/Units 16:16 18:22 20:41 WBC (3.8-10.6) k/uL Neutrophils # (Manual) (1.3-7.7) k/uL Monocytes # (Manual) (0-1.0) k/uL Myelocytes # (Manual) (0) k/uL Carbon Dioxide (22-30) mmol/L BUN 25 H (7-17) mg/dL Creatinine 1.08 H (0.52-1.04) mg/dL Glucose (74-99) mg/dL POC Glucose (mg/dL) 501 H 391 H (75-99) mg/dL 01/02/19 01/02/19 01/02/19 Range/Units 02:11 05:01 05:54 WBC 28.0 H (3.8-10.6) k/uL Neutrophils # (Manual) 24.90 H (1.3-7.7) k/uL Monocytes # (Manual) 1.40 H (0-1.0) k/uL Myelocytes # (Manual) 0.28 H (0) k/uL Carbon Dioxide (22-30) mmol/L BUN (7-17) mg/dL Creatinine (0.52-1.04) mg/dL Glucose (74-99) mg/dL POC Glucose (mg/dL) 227 H 197 H (75-99) mg/dL 01/02/19 01/02/19 01/02/19 Range/Units 05:54 07:03 10:21 WBC (3.8-10.6) k/uL Neutrophils # (Manual) (1.3-7.7) k/uL Monocytes # (Manual) (0-1.0) k/uL Myelocytes # (Manual) (0) k/uL Carbon Dioxide 20 L (22-30) mmol/L BUN 26 H (7-17) mg/dL Creatinine (0.52-1.04) mg/dL Glucose 171 H (74-99) mg/dL POC Glucose (mg/dL) 162 H 54 L (75-99) mg/dL Microbiology - Last 24 Hours (Table) 12/31/18 10:10 Blood Culture - Preliminary Blood No Growth after 48 hours Assessment and Plan Assessment: ASSESSMENT Sepsis secondary to pneumonia Tingling sensation in the left foot Urinary/bowel incontinence -intermittently Type 2 diabetes mellitus with hyperglycemia Pulmonary Interstitial fibrosis Hypertension History of left shoulder replacement Elevated BNP PLAN: patient received 60 mg of IV Lasix in the past 24 hours. Now with negative fluid balance of 1200 mL. Continue the patient on ceftriaxone and Zithromax recommended echo and pneumonia. CTA injury of the chest is negative for PE but showing bilateral infiltrates pulmonary interstitial fibrosis and mediastinal lymphadenopathy. MRA of the lumbar spine is pending. No red flags. As the patient's blood pressure is running high added hydralazine. As the patient's blood sugars have been running high and low, adjusting the insulin requirements. Echocardiogram pending. All her prognosis is guarded. Further recommendations to follow depending on the progress of the patient.
[2019-01-02] MEDS: ENOXAPARIN 40 MG/0.4 ML SYRINGE SQ SCH (17:28)
[2019-01-02] MEDS: ALPRAZolam 0.25 MG TAB PO PRN ×2 (17:31→23:25)
[2019-01-02] MEDS: IPRATROPIUM-ALBUTEROL 3 ML NEB INHALATION PRN ×2 (17:47→23:36)
[2019-01-02] MEDS: INSULIN DETEMIR (LEVEMIR) 100 UNIT/ML SYR SQ SCH (20:37)
[2019-01-02] MEDS: CITALOPRAM HYDROBROMIDE 20 MG TAB PO SCH (20:44)
[2019-01-02 20:53] LABS: Glucose,Whole Blood 155 mg/dL (75-99)
[2019-01-03] MEDS: SODIUM CHLORIDE 0.9% 1,000 ML IV SCH ×2 (00:12→23:31)
[2019-01-03] MEDS ORDERED: FUROSEMIDE 10 MG/ML 4 ML VIAL IV STA (00:27)
[2019-01-03 06:33] LABS: Basophils # (A) 0.2 k/uL (0-0.2); Basophils % (A) 1 %; Eosinophils # (A) 0.4 k/uL (0-0.7); Eosinophils % (A) 2 %; HCT 33.9 % (34.0-46.0); HGB 11.4 gm/dL (11.4-16.0); Lymphocytes # (A) 1.7 k/uL (1.0-4.8); Lymphocytes % (A) 9 %; MCH 30.4 pg (25.0-35.0); MCHC 33.5 g/dL (31.0-37.0); MCV 90.7 fL (80.0-100.0); Mean Platelet Volume 6.9; Monocytes % (A) 5 %; Neutrophils # (A) 14.6 k/uL (1.3-7.7); Neutrophils % (A) 81 %; Platelet Count 268 k/uL (150-450); RBC 3.74 m/uL (3.80-5.40); RDW 13.4 % (11.5-15.5)
[2019-01-03 06:48] LABS: Calcium 8.6 mg/dL (8.4-10.2); Potassium 3.7 mmol/L (3.5-5.1)
[2019-01-03 07:06] LABS: Glucose,Whole Blood 76 mg/dL (75-99)
[2019-01-03] MEDS: INSULIN ASPART (NovoLOG) 100 UNIT/ML VIAL SQ SCH ×4 (07:07→20:50)
[2019-01-03] MEDS: IPRATROPIUM-ALBUTEROL 3 ML NEB INHALATION SCH ×4 (07:54→18:58)
[2019-01-03] MEDS: buPROPion XL 300 MG TAB.ER.24H PO SCH (08:47)
[2019-01-03] MEDS: LOSARTAN 25 MG TAB PO SCH ×2 (08:48→20:48)
[2019-01-03] MEDS: FUROSEMIDE 20 MG TAB PO SCH ×2 (08:48→16:42)
[2019-01-03] MEDS: ENOXAPARIN 40 MG/0.4 ML SYRINGE SQ SCH (08:48)
[2019-01-03] MEDS ORDERED: AZITHROMYCIN 500 MG in SODIUM CHLORIDE 0.9% 250 ML IVPB SCH (09:00)
--- NOTE | 2019-01-03 11:00 | ECHOF ---
Referral Reason:sob MEASUREMENTS -------- HEIGHT: 157.5 cm WEIGHT: 78.9 kg BP: IVSd: 0.9 cm (0.6 - 1.1) LVIDd: 4.5 cm (3.9 - 5.3) LVPWd: 1.0 cm (0.6 - 1.1) IVSs: 1.3 cm LVIDs: 2.9 cm LVPWs: 1.6 cm LAESV Index (A-L): 27.43 ml/m Ao Diam: 2.9 cm (2.0 - 3.7) AV Cusp: 1.8 cm (1.5 - 2.6) LA Diam: 2.7 cm (2.7 - 3.8) MV EXCURSION: 17.701 mm (> 18.000) MV EF SLOPE: 61 mm/s (70 - 150) EPSS: 0.7 cm MV E Braulio: 0.96 m/s MV DecT: 306 ms MV A Braulio: 1.08 m/s MV E/A Ratio: 0.89 RAP: 5.00 mmHg RVSP: 37.64 mmHg TAPSE: 28.46 mm FINDINGS -------- Sinus rhythm. This was a technically good study. The left ventricular size is normal. Left ventricular wall thickness is normal. Overall left vent ricular systolic function is normal with, an EF between 55 - 60 %. Normal LAP Grade 1 Diastolic Dys function. The right ventricle is normal in size. The right ventricular systolic function is normal. The left atrial size is normal. Normal LA size by volume 22+/-6 ml/m2. The right atrial size is normal. The aortic valve is trileaflet and appears structurally normal. The mitral valve is normal. There is trace mitral regurgitation. The tricuspid valve appears structurally normal. Mild tricuspid regurgitation present. There is m ild pulmonary hypertension. The right ventricular systolic pressure, as measured by Doppler, is 37. 64mmHg. Pulmonic valve appears structurally normal. The aortic root size is normal. Normal inferior vena cava with normal inspiratory collapse consistent with estimated right atrial pre ssure of 5 mmHg. There is no pericardial effusion. CONCLUSIONS -------- 1. Sinus rhythm. 2. This was a technically good study. 3. The left ventricular size is normal. 4. Left ventricular wall thickness is normal. 5. Overall left ventricular systolic function is normal with, an EF between 55 - 60 %. 6. Normal LAP Grade 1 Diastolic Dysfunction. 7. The right ventricle is normal in size. 8. The right ventricular systolic function is normal. 9. The left atrial size is normal. 10. Normal LA size by volume 22+/-6 ml/m2. 11. The right atrial size is normal. 12. The aortic valve is trileaflet and appears structurally normal. 13. The mitral valve is normal. 14. There is trace mitral regurgitation. 15. The tricuspid valve appears structurally normal. 16. Mild tricuspid regurgitation present. 17. There is mild pulmonary hypertension. 18. The right ventricular systolic pressure, as measured by Doppler, is 37.64mmHg. 19. Pulmonic valve appears structurally normal. 20. The aortic root size is normal. 21. Normal inferior vena cava with normal inspiratory collapse consistent with estimated right atrial pressure of 5 mmHg. 22. There is no pericardial effusion. [employer] DEVELOPER: Kaela Owusu RDCS
--- NOTE | 2019-01-03 11:18 | CONS ---
CONSULTATION PULMONARY/CRITICAL CARE CONSULTATION: DATE OF CONSULTATION: January 03, 2019 REASON FOR CONSULTATION: Shortness of breath. This is a very pleasant 78-year-old female who continues to work. 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 It had gotten worse over the last couple of weeks, but even before then she was short of breath particularly on exertion. When she came to the emergency room in addition to complaining of back pain and some leg pain, she complained of cough and cold-like symptoms. She apparently had a fever in the emergency room of 101. She apparently had been given some antibiotics for a urinary tract infection. When talking to the patient, it is clear to me that she has more chronic lung issues. She has been having shortness of breath for many months and even years now. It appears that it has gotten worse here more recently. The shortness of breath is only noted on exertion but has become quite prominent. In addition, she admits to cough which is mostly dry but occasionally productive of phlegm. Currently, she is feeling much better since she has been here. She was admitted back on December 31 through the emergency room. Her primary care doctor is Dr. Jon Polo. She states that she does not see a lung doctor. She denies any history of any lung issues. Looking at her chest x-ray and CAT scan, it appears that the patient has developed pulmonary fibrosis/interstitial lung disease. This is likely developed over many months and even a few years. HOME MEDICATIONS: Home medications include citalopram, Cozaar, Wellbutrin, insulin, and Macrobid. I am not sure if Macrobid had been something she has used in the past or it has more of an acute antibiotic, but it is a concern because Macrobid has been associated with interstitial lung disease/pulmonary fibrosis. It should be never given to this patient again. ALLERGIES: Allergies are LATEX. MEDICAL HISTORY: Medical history includes angina, diabetes, hypertension, DJD, varicose veins, chronic back pain, fecal incontinence, intermittent abdominal pain, and chronic shortness of breath and cough. SURGICAL HISTORY: Surgical history includes hysterectomy, joint replacement including bilateral total knees, left thumb surgery, and a loop recorder that has been placed and then subsequently removed. She also had left shoulder surgery. SOCIAL HISTORY: Significant that she is a lifelong nonsmoker. Denies any alcohol use or illicit drug use. FAMILY HISTORY: Positive for a sister with leukemia and another sister with stomach cancer. The rest of her family history is not well documented. REVIEW OF SYSTEMS: CONSTITUTIONAL: Negative. NEUROLOGIC: Negative. HEENT: Negative. CARDIOVASCULAR: Negative. PULMONARY: Chronic shortness of breath, cough, chest congestion and occasional phlegm production. GI: Negative. : Negative. RHEUMATOLOGIC: Negative. IMMUNOLOGIC: Negative. ENDOCRINOLOGIC: Negative. DERMATOLOGIC: Negative. PHYSICAL EXAMINATION: VITAL SIGNS: Current vital signs are reviewed. Temperature is 97.9, heart rate 72, respiratory rate 16, blood pressure 188/69, mean 108 and 3 L saturation 97%. GENERAL: Appears in no acute distress. HEENT: Examination is grossly unremarkable. Nasal O2 noted. NECK: Supple. Full range of motion. No adenopathy. Neck veins are flat. CARDIOVASCULAR: Examination reveals regular rhythm and rate. Heart rate 75 per minute. S1, S2 normal. No S3, S4, or murmur. LUNGS: Reveal bibasilar crackles. They are Velcro in nature. She is mildly restricted in her breathing. No rhonchi or wheezes. ABDOMEN: Soft. Bowel sounds are heard. EXTREMITIES: Are intact. No significant cyanosis, clubbing, or edema. SKIN: Without rash. NEUROLOGIC: Examination is brief but nonfocal. LABS: Labs are reviewed. White count 18, hemoglobin 11.4, hematocrit 33.9, platelet count 268,000. Sodium 138, potassium 3.7, chloride 102, CO2 of 28. Anion gap 8. BUN and creatinine were 27 and 1.04. X-rays and labs are all reviewed. She had a chest x-ray on December 31 and another chest x-ray on the and a final chest x-ray on the 02 of January. She had a CTA on January 01, which was evaluated by me. There is no evidence of any pulmonary embolism. There is evidence of significant bilateral basilar and peripheral infiltrates consistent with interstitial lung disease/pulmonary fibrosis. Microbiology is thus far negative. Medications noted. She is currently on Zithromax and Rocephin. She is also on updrafts with albuterol and Atrovent. ASSESSMENT: 1. Acute on chronic shortness of breath and hypoxemic respiratory failure, likely secondary to pulmonary fibrosis and possibly complicated by either purulent tracheobronchitis or bronchopneumonia. 2. Angina pectoris. 3. Diabetes mellitus. 4. Hypertension. 5. Degenerative joint disease. 6. Varicose veins. 7. Chronic back pain. 8. History of fecal incontinence. 9. Recent use of Macrodantin which has been associated with pulmonary fibrosis if used chronically. PLAN: The patient's medications are appropriate. Hard to rule out underlying infection given her significant interstitial findings. The antibiotics are appropriate. She is feeling better. Breathing treatments are fine for now. I told the patient that I would like to see her in the office after discharge. She will need a complete pulmonary function test. Will talk about the possibility of lung biopsy. We will also talk about one of the newer treatments for pulmonary fibrosis either Esbriet or OFEV. Additional recommendations and suggestions are forthcoming. She will also need a 6-minute walk distance. MARYAN / VIKTOR: [id number] / MTDD
[2019-01-03 11:40] LABS: Glucose,Whole Blood 143 mg/dL (75-99)
--- NOTE | 2019-01-03 15:13 | MR ---
EXAMINATION TYPE: MR lumbar spine wo con DATE OF EXAM: 01/03/2019 COMPARISON: CT abdomen and pelvis 3 days ago HISTORY: Tingling in her left foot TECHNIQUE: Multiplanar, multisequence imaging of the lumbar spine is performed without IV contrast. FINDINGS: Sagittal images of the lumbar spine show vertebral body heights and alignment to remain sat isfactory. Multilevel disc desiccation is present. At this space heights are fairly well-maintained. The conus medullaris is normal in position and signal ending mid L1 level. Prominent hemangioma righ t L3 level redemonstrated. Mild multilevel anterior spurring. Axial images show at T12-L1 and L1-L2 levels to appear within normal limits. Axial images at the L2-L3 level show mild to moderate facet degenerative changes and ligamentum flavu m hypertrophy effacing posterolateral thecal sac with mild to moderate broad-based posterior disc pro trusion effacing anterior thecal sac. There is mild left greater than right bilateral anterior inferi or neural foraminal narrowing. Axial images at L3-L4 levels show [id number] facet degenerative changes and ligamentum flavum h ypertrophy effacing posterolateral thecal sac. There is mild broad disc bulge mildly effacing the ant erior thecal sac. There is mild left greater than right bilateral anterior inferior neural foraminal narrowing. Axial images at the L4-L5 level show moderate facet degenerative changes and ligamentum flavum hypert rophy effacing posterior lateral thecal sac. Mild broad disc bulge is seen. Bilateral neural foramina are patent. Axial images at L5-S1 level show moderate to advanced facet degenerative changes. There is broad disc bulge with right paracentral disc protrusion component effacing the anterior thecal sac. Bilateral n eural foramina are patent. Mild perinephric ill-defined fluid bilaterally redemonstrated, nonspecific finding. IMPRESSION: Multilevel degenerative changes in the mid to lower lumbar spine as detailed above. No la rge eccentric disc herniation seen to account for patient's asymmetric left-sided radiculopathy type symptoms however.
[2019-01-03 16:37] LABS: Glucose,Whole Blood 118 mg/dL (75-99)
[2019-01-03 20:42] LABS: Glucose,Whole Blood 185 mg/dL (75-99)
[2019-01-03] MEDS: CITALOPRAM HYDROBROMIDE 20 MG TAB PO SCH (20:48)
[2019-01-03] MEDS: INSULIN DETEMIR (LEVEMIR) 100 UNIT/ML SYR SQ SCH (20:50)
[2019-01-04 03:15] LABS: Glucose,Whole Blood 76 mg/dL (75-99)
[2019-01-04 06:41] LABS: Glucose,Whole Blood 84 mg/dL (75-99)
[2019-01-04] MEDS: INSULIN ASPART (NovoLOG) 100 UNIT/ML VIAL SQ SCH ×4 (07:04→20:38)
[2019-01-04] MEDS: IPRATROPIUM-ALBUTEROL 3 ML NEB INHALATION SCH ×4 (09:06→21:14)
[2019-01-04] MEDS: AZITHROMYCIN 500 MG TAB PO SCH (09:29)
[2019-01-04] MEDS: buPROPion XL 300 MG TAB.ER.24H PO SCH (09:29)
[2019-01-04] MEDS: FUROSEMIDE 20 MG TAB PO SCH ×2 (09:29→16:05)
[2019-01-04] MEDS: ENOXAPARIN 40 MG/0.4 ML SYRINGE SQ SCH (09:29)
[2019-01-04] MEDS: LOSARTAN 25 MG TAB PO SCH ×2 (09:29→20:37)
--- NOTE | 2019-01-04 11:39 | P.PN ---
Subjective Progress Note Date: 01/04/19 Principal diagnosis: Acute on chronic hypoxemic respiratory failure secondary to pulmonary fibrosis, complicated by purulent tracheobronchitis or bronchopneumonia. The patient is seen today 01/04/2019 in follow-up on the regular medical floor. She is currently sitting up at the bedside. Awake and alert in no acute distress. Breathing a bit easier today as compared to yesterday. Continues with a dry nonproductive cough. She is maintaining O2 saturation in low 90s on room air. She's afebrile. Blood culture reveals no growth. She is continued on DuoNeb inhalations, antibiotics in the form of ceftriaxone and azithromycin, oral diuretics. Objective - Vital Signs Vital signs: Vital Signs Temp 97.9 F 01/04/19 07:00 Pulse 69 01/04/19 08:15 Resp 16 01/04/19 08:15 BP 188/74 01/04/19 07:00 Pulse Ox 93 L 01/04/19 07:00 Intake & Output 01/03/19 01/04/19 01/04/19 18:59 06:59 18:59 Intake Total 590 480 Output Total 700 Balance -110 480 Weight 77 kg Intake: Oral 590 480 Output: Urine 700 Other: Voiding Method Toilet Toilet Toilet # Voids 1 - Exam GENERAL EXAM: Alert, active, comfortable in no apparent distress. On 4 L nasal cannula HEAD: Normocephalic. EYES: Normal reaction of pupils, equal size. NOSE: Clear with pink turbinates. THROAT: No erythema or exudates. NECK: No masses, no JVD. CHEST: No chest wall deformity. LUNGS: Equal air entry with bilateral crackles. CVS: S1 and S2 normal with no audible murmur, regular rhythm. ABDOMEN: No hepatosplenomegaly, normal bowel sounds, no guarding or rigidity. SPINE: No scoliosis or deformity SKIN: No rashes CENTRAL NERVOUS SYSTEM: No focal deficits, tone is normal in all 4 extremities. EXTREMITIES: There is no peripheral edema. No clubbing, no cyanosis. Peripheral pulses are intact. - Labs CBC & Chem 7: 01/03/19 05:51 01/03/19 05:51 Labs: Abnormal Lab Results - Last 24 Hours (Table) 01/03/19 01/03/19 01/03/19 Range/Units 11:38 16:36 20:41 POC Glucose (mg/dL) 143 H 118 H 185 H (75-99) mg/dL Microbiology - Last 24 Hours (Table) 12/31/18 10:10 Blood Culture - Preliminary Blood No Growth after 72 hours Assessment and Plan Assessment: #1 Acute on chronic shortness of breath and hypoxemic respiratory failure likely secondary to pulmonary fibrosis, complicated by purulent tracheobronchitis or bronchopneumonia. #2 Diabetes mellitus. #3 Hypertension. #4 Degenerative joint disease. #5 Chronic back pain. #6 Angina pectoris. #7 Recent use of Macrodantin. The patient was seen and evaluated by Dr. Hines. She is improved today as compared to yesterday. We'll continue with the current treatment plan. Continue DuoNeb inhalations. Continue antibiotics. Continue oral diuretics. She will follow-up in our office post discharge. We'll perform full pulmonary function testing, 6 minute walk and consider Esbriet or OFEV for her pulmonary fibrosis. We'll continue to follow make and make further recommendations based on her clinical status. I, the cosigning physician, performed a history & physical examination of the patient. Lungs sounds with few scattered crackles, diminished. Maintaining good O2 saturations in the 90s on room air. I discussed the assessment and plan of care with my nurse practitioner, Rowan Dixon. I attest to the above note as dictated by her.
[2019-01-04 11:41] LABS: Glucose,Whole Blood 160 mg/dL (75-99)
--- NOTE | 2019-01-04 13:13 | P.PN ---
Subjective Progress Note Date: 01/04/19 This is a 78-year-old female admitted with hypoxic respiratory failure, pulmonary fibrosis with pneumonia and multiple other medical issues. Maintained on nebulized bronchodilators, Rocephin, Zithromax and oral diuretics. Breathing improving with less wheezing. Reports nonproductive cough. T-max 99.1. Blood cultures reporting no growth Maintaining O2 sats in the low 90s on room air. Evaluated by PT with home care recommended at discharge. Blood sugars better controlled. Objective - Vital Signs Vital signs: Vital Signs Temp 97.9 F 01/04/19 07:00 Pulse 69 01/04/19 08:15 Resp 16 01/04/19 08:15 BP 188/74 01/04/19 07:00 Pulse Ox 93 L 01/04/19 07:00 Intake & Output 01/03/19 01/04/19 01/04/19 18:59 06:59 18:59 Intake Total 590 480 Output Total 700 Balance -110 480 Weight 77 kg Intake: Oral 590 480 Output: Urine 700 Other: Voiding Method Toilet Toilet Toilet # Voids 1 - Exam PHYSICAL EXAM: VITAL SIGNS: As above GENERAL: Sitting up in bed, no acute distress. HEENT: Conjunctivae normal. eyes normal. NECK: No JVD. No thyroid enlargement. No LNs CARDIOVASCULAR: S1, S2 regular.. No murmur RESPIRATION: Breath sounds diminished in the bases. No rhonchi, bilateral crackles. Occasional faint expiratory wheeze ABDOMEN: Soft, nondistended, nontender . No guarding. no masses palpable. No ascites, No hepatosplenomegaly.Bowel sounds heard. LEGS: No edema. no swelling PSYCHIATRY: Alert and oriented X3, mood and affect normal. NERVOUS SYSTEM: Cranial N 2-12 grossly normal. Moves all 4 limbs. Diffuse weakness, No focal deficits. Strength and sensation grossly intact. Skin: no rash - Labs CBC & Chem 7: 01/03/19 05:51 01/03/19 05:51 Labs: Abnormal Lab Results - Last 24 Hours (Table) 01/03/19 01/03/19 01/04/19 Range/Units 16:36 20:41 11:39 POC Glucose (mg/dL) 118 H 185 H 160 H (75-99) mg/dL Microbiology - Last 24 Hours (Table) 12/31/18 10:10 Blood Culture - Preliminary Blood No Growth after 96 hours Assessment and Plan Assessment: Acute hypoxic respiratory failure, secondary to most likely pulmonary fibrosis with bronchopneumonia -Sepsis, present on admission secondary to the above -Diabetes mellitus, uncontrolled, hyperglycemic,HGBA1c 9.7 -Hypertension -Degenerative joint disease -Chronic back pain Plan: Continue on current medication regime ,monitoring and symptomatic treatment. Maintain nebulized bronchodilators, antibiotics. Concrete Polisher and breastfeeding educator consulted, regarding elevated hemoglobin A1c. Increase ambulation as tolerated; as mentioned above physical therapy recommending home care discharge. Discharge planning in progress for tentatively for tomorrow pending pulmonary clearance. The impression and plan of care has been dictated as directed. : I performed a history and examination of this patient, discussed the same with the dictator. I agree with the dictator's note ,documented as a scribe. Any additional findings or plans will be noted.
[2019-01-04 15:13] LABS: Glucose,Whole Blood 46 mg/dL (75-99)
[2019-01-04 15:31] LABS: Glucose,Whole Blood 102 mg/dL (75-99)
[2019-01-04 16:28] LABS: Glucose,Whole Blood 64 mg/dL (75-99)
[2019-01-04 16:48] LABS: Glucose,Whole Blood 70 mg/dL (75-99)
[2019-01-04 20:27] LABS: Glucose,Whole Blood 193 mg/dL (75-99)
[2019-01-04] MEDS: INSULIN DETEMIR (LEVEMIR) 100 UNIT/ML SYR SQ SCH (20:37)
[2019-01-04] MEDS: CITALOPRAM HYDROBROMIDE 20 MG TAB PO SCH (20:37)
[2019-01-04] MEDS: SODIUM CHLORIDE 0.9% 1,000 ML IV SCH (23:18)
[2019-01-05 02:08] VITALS: PULSE 65
[2019-01-05 03:28] LABS: Glucose,Whole Blood 70 mg/dL (75-99)
[2019-01-05 06:32] LABS: Glucose,Whole Blood 52 mg/dL (75-99)
[2019-01-05 07:15] LABS: Glucose,Whole Blood 94 mg/dL (75-99)
[2019-01-05] MEDS: INSULIN ASPART (NovoLOG) 100 UNIT/ML VIAL SQ SCH (07:18)
[2019-01-05] MEDS: IPRATROPIUM-ALBUTEROL 3 ML NEB INHALATION SCH (07:52)
[2019-01-05] MEDS: FUROSEMIDE 20 MG TAB PO SCH (07:53)
[2019-01-05] MEDS: ENOXAPARIN 40 MG/0.4 ML SYRINGE SQ SCH (07:53)
[2019-01-05] MEDS: AZITHROMYCIN 500 MG TAB PO SCH (07:53)
[2019-01-05] MEDS: LOSARTAN 25 MG TAB PO SCH (07:53)
[2019-01-05] MEDS: buPROPion XL 300 MG TAB.ER.24H PO SCH (07:53)
[2019-01-05 08:14] LABS: Basophils # (A) 0.1 k/uL (0-0.2); Basophils % (A) 1 %; Eosinophils # (A) 0.8 k/uL (0-0.7); Eosinophils % (A) 8 %; HCT 34.6 % (34.0-46.0); HGB 11.6 gm/dL (11.4-16.0); Lymphocytes # (A) 2.6 k/uL (1.0-4.8); Lymphocytes % (A) 24 %; MCH 30.4 pg (25.0-35.0); MCHC 33.5 g/dL (31.0-37.0); MCV 90.5 fL (80.0-100.0); Monocytes # (A) 0.7 k/uL (0-1.0); Monocytes % (A) 6 %; Neutrophils # (A) 6.3 k/uL (1.3-7.7); Neutrophils % (A) 60 %; Platelet Count 305 k/uL (150-450); RBC 3.82 m/uL (3.80-5.40); RDW 13.1 % (11.5-15.5); WBC 10.6 k/uL (3.8-10.6)
[2019-01-05 08:28] LABS: Calcium 8.5 mg/dL (8.4-10.2); Potassium 4.1 mmol/L (3.5-5.1)
[2019-01-05 08:32] VITALS: BP 148/65; RESP 15; TEMP 98.1
--- NOTE | 2019-01-05 11:29 | P.PN ---
Subjective Progress Note Date: 01/05/19 Principal diagnosis: Acute on chronic hypoxemic respiratory failure secondary to pulmonary fibrosis, complicated by purulent tracheobronchitis or bronchopneumonia. The patient is seen today 01/04/2019 in follow-up on the regular medical floor. She is currently sitting up at the bedside. Awake and alert in no acute distress. Breathing a bit easier today as compared to yesterday. Continues with a dry nonproductive cough. She is maintaining O2 saturation in low 90s on room air. She's afebrile. Blood culture reveals no growth. She is continued on DuoNeb inhalations, antibiotics in the form of ceftriaxone and azithromycin, oral diuretics. The patient is seen today 01/05/2019 in follow-up on the regular medical floor. She is currently resting in bed. Awake and alert in no acute distress. Maintaining O2 saturations in the low 90s on room air. She's afebrile. H emodynamically stable. Blood culture reveals no growth. White count 10.6. Hemoglobin 11.6. Creatinine 1.02. Glucose 84. Objective - Vital Signs Vital signs: Vital Signs Temp 98.1 F 01/05/19 07:14 Pulse 65 01/05/19 07:14 Resp 15 01/05/19 07:14 BP 148/65 01/05/19 07:14 Pulse Ox 93 L 01/05/19 07:14 Intake & Output 01/04/19 01/05/19 01/05/19 18:59 06:59 18:59 Intake Total 350 480 480 Balance 350 480 480 Weight 75.5 kg Intake: Intake, IV Titration 50 Amount cefTRIAXone 1 gm In 50 Sodium Chloride 0.9% 50 ml @ 100 mls/hr IVPB Q24HR [facility] Rx#:[id number] Oral 300 480 480 Other: Voiding Method Toilet # Voids 3 2 - Exam GENERAL EXAM: Alert, pleasant 78-year-old female patient, fairly comfortable in no apparent distress. On 4 L nasal cannula HEAD: Normocephalic. EYES: Normal reaction of pupils, equal size. NOSE: Clear with pink turbinates. THROAT: No erythema or exudates. NECK: No masses, no JVD. CHEST: No chest wall deformity. LUNGS: Equal air entry with bilateral crackles. CVS: S1 and S2 normal with no audible murmur, regular rhythm. ABDOMEN: No hepatosplenomegaly, normal bowel sounds, no guarding or rigidity. SPINE: No scoliosis or deformity SKIN: No rashes CENTRAL NERVOUS SYSTEM: No focal deficits, tone is normal in all 4 extremities. EXTREMITIES: There is no peripheral edema. No clubbing, no cyanosis. Peripheral pulses are intact. - Labs CBC & Chem 7: 01/05/19 06:50 01/05/19 06:50 Labs: Abnormal Lab Results - Last 24 Hours (Table) 01/04/19 01/04/19 01/04/19 Range/Units 11:39 15:11 15:29 Eosinophils # (0-0.7) k/uL BUN (7-17) mg/dL POC Glucose (mg/dL) 160 H 46 L 102 H (75-99) mg/dL 01/04/19 01/04/19 01/04/19 Range/Units 16:26 16:46 20:26 Eosinophils # (0-0.7) k/uL BUN (7-17) mg/dL POC Glucose (mg/dL) 64 L 70 L 193 H (75-99) mg/dL 01/05/19 01/05/19 01/05/19 Range/Units 03:27 06:30 06:50 Eosinophils # 0.8 H (0-0.7) k/uL BUN (7-17) mg/dL POC Glucose (mg/dL) 70 L 52 L (75-99) mg/dL 01/05/19 Range/Units 06:50 Eosinophils # (0-0.7) k/uL BUN 21 H (7-17) mg/dL POC Glucose (mg/dL) (75-99) mg/dL Microbiology - Last 24 Hours (Table) 12/31/18 10:10 Blood Culture - Preliminary Blood No Growth after 96 hours Assessment and Plan Assessment: #1 Acute on chronic shortness of breath and hypoxemic respiratory failure likely secondary to pulmonary fibrosis, complicated by purulent tracheobronchitis or bronchopneumonia. #2 Diabetes mellitus. #3 Hypertension. #4 Degenerative joint disease. #5 Chronic back pain. #6 Angina pectoris. #7 Recent use of Macrodantin. The patient was seen and evaluated by Dr. Hines. Antibiotics discontinued. She will follow-up in our office post discharge. We'll perform full pulmonary function testing, 6 minute walk and consider Esbriet or OFEV for her pulmonary f ibrosis. We'll continue to follow make and make further recommendations based on her clinical status. I, the cosigning physician, performed a history & physical examination of the patient. Lungs sounds with few scattered crackles, diminished. Maintaining good O2 saturations in the 90s on room air. I discussed the assessment and plan of care with my nurse practitioner, Rowan Dixon. I attest to the above note as dictated by her.
[2019-01-05 11:50] LABS: Glucose,Whole Blood 162 mg/dL (75-99)
--- NOTE | 2019-01-05 14:08 | P.DS ---
Providers Date of admission: 12/31/18 13:49 Expected date of discharge: 01/05/19 Attending physician: Jon Polo Consults: 01/01/19 15:53 Consult Physician Routine Consulting Provider: Rui Chapman Consult Reason/Comments: shortness of breath Do you want consulting provider notified?: Yes Primary care physician: Jon Polo Hospital Course: Final Diagnoses: Acute hypoxic respiratory failure, secondary to most likely pulmonary fibrosis with bronchopneumonia -Sepsis, present on admission secondary to the above -Diabetes mellitus, uncontrolled, hyperglycemic,HGBA1c 9.7 -Hypertension -Degenerative joint disease -Chronic back pain Hospital course:This is a 78-year-old female admitted with hypoxic respiratory failure, pulmonary fibrosis with pneumonia and multiple other medical issues. Maintained on nebulized bronchodilators, Rocephin, Zithromax and oral diuretics. Breathing improving with less wheezing. Reports nonproductive cough. T-max 99.1. Blood cultures reporting no growth Maintaining O2 sats in the low 90s on room air. Evaluated by PT with home care recommended at discharge. Blood sugars better controlled. Significant clinical improvement. Patient is being discharged home in a stable condition with guarded prognosis pending pulmonary clearance. EXAM: GENERAL: Alert and oriented 3, no acute distress. CARDIOVASCULAR: S1, S2 regular. No murmur RESPIRATION: Breath sounds diminished in the bases, bilateral basilar crackles. ABDOMEN: Soft, nondistended, nontender . No guarding. Bowel sounds heard. NERVOUS SYSTEM: No focal deficits. The impression and plan of care has been dictated as directed. : I performed a history and examination of this patient, discussed the same with the dictator. I agree with the dictator's note ,documented as a scribe. Any additional findings or plans will be noted. Patient Condition at Discharge: Stable Plan - Discharge Summary Discharge Rx Participant: No New Discharge Prescriptions: New Cefuroxime Axetil [Ceftin] 500 mg PO BID #10 tab Furosemide [Lasix] 20 mg PO DAILY #30 tab Albuterol Inhaler [Ventolin Hfa Inhaler] 2 puff INHALATION RT-Q6H PRN #1 inhaler PRN Reason: Shortness Of Breath Changed Insulin Glargine,Hum.rec.anlog [Basaglar Kwikpen U-100] 30 units SQ HS #0 Discontinued Nitrofurantoin Monohyd/M-Cryst [Macrobid] 100 mg PO Q12HR No Action buPROPion XL [Wellbutrin XL] 300 mg PO DAILY Losartan [Cozaar] 25 mg PO BID Citalopram Hydrobromide [Citalopram HBr] 40 mg PO HS Insulin Aspart [NovoLOG Flexpen] See Protocol SQ TID Discharge Medication List Citalopram Hydrobromide [Citalopram HBr] 40 mg PO HS 01/02/16 [History] Losartan [Cozaar] 25 mg PO BID 01/02/16 [History] buPROPion XL [Wellbutrin XL] 300 mg PO DAILY 01/02/16 [History] Insulin Aspart [NovoLOG Flexpen] See Protocol SQ TID 12/31/18 [History] Albuterol Inhaler [Ventolin Hfa Inhaler] 2 puff INHALATION RT-Q6H PRN #1 inhaler 01/05/19 [Rx] Cefuroxime Axetil [Ceftin] 500 mg PO BID #10 tab 01/05/19 [Rx] Furosemide [Lasix] 20 mg PO DAILY #30 tab 01/05/19 [Rx] Insulin Glargine,Hum.rec.anlog [Basaglar Kwikpen U-100] 30 units SQ HS #0 01/05/19 [Rx] Follow up Appointment(s)/Referral(s): [facility], [NON-STAFF] - 1 Week Jon Polo DO [Primary Care Provider] - 01/11/19 10:50 am Duglas Hines DO [Doctor of Osteopathic Medicine] - 2 Weeks Mago Ballesteros MD [STAFF PHYSICIAN] - 01/18/19 9:15 am Ambulatory/Diagnostic Orders: Complete Blood Count w/diff [LAB.AMB] Time Frame: 3 Days, Location: None Selected Patient Instructions/Handouts: Pneumonia (DC) Activity/Diet/Wound Care/Special Instructions: DM ed Classes in PCP office DIet: COnsist. Carb Accu checks achs, maintain log, take into F/U with pcp/ STUDENT RECORDS COORDINATOR FOR FURTHER REC. Activity: Limited till d/u
[2019-01-06] MEDS ORDERED: FUROSEMIDE 20 MG TAB PO SCH (09:00)
== END 2019-01-05 15:28 | disposition home health service (06) | DRG 871 ==
LOC: EC 09:32 → 4SSUR 13:49
PROVIDERS: ADMIT Family Medicine; ATTEND Family Medicine
DX: A41.9 Sepsis, unspecified organism (principal); J18.0 Bronchopneumonia, unspecified organism; J96.21 Acute and chronic respiratory failure with hypoxia; J98.11 Atelectasis; N39.0 Urinary tract infection, site not specified; E11.65 Type 2 diabetes mellitus with hyperglycemia; F32.9 Major depressive disorder, single episode, unspecified; F41.9 Anxiety disorder, unspecified; G89.29 Other chronic pain; I10 Essential (primary) hypertension; I20.9 Angina pectoris, unspecified; I83.90 Asymptomatic varicose veins of unspecified lower extremity; J40 Bronchitis, not specified as acute or chronic; J84.10 Pulmonary fibrosis, unspecified; M19.90 Unspecified osteoarthritis, unspecified site; R32 Unspecified urinary incontinence; Z79.4 Long term (current) use of insulin; Z79.899 Other long term (current) drug therapy; Z80.0 Family history of malignant neoplasm of digestive organs; Z80.6 Family history of leukemia; Z90.710 Acquired absence of both cervix and uterus; Z96.612 Presence of left artificial shoulder joint; R15.9 Full incontinence of feces; Z79.2 Long term (current) use of antibiotics; Z91.040 Latex allergy status; M54.9 Dorsalgia, unspecified
CPT/HCPCS: 36415; 71045; 71046; 71275; 72148; 74177; 80048; 80053; 81001; 82565; 83036; 83605; 83880; 84145; 84520; 85025; 85379; 85610; 85730; 87040; 87502; 93005; 93306; 94640; 94760; 96374; 99285

== ENCOUNTER 2019-02-23 18:23 | Inpatient (IN) | payer MEDICARE, BC ==
[2019-02-23 18:49] LABS: Glucose,Whole Blood 181 mg/dL (75-99)
[2019-02-23] MEDS ORDERED: HYDROmorphone 1 MG/ML 1 ML SYRINGE IVP STA (20:30)
--- NOTE | 2019-02-23 20:30 | ED ---
General Adult HPI - General Source: patient, RN notes reviewed, old records reviewed Mode of arrival: wheelchair Limitations: no limitations <Yash Small - Last Filed: 02/23/19 20:31> <Carly Gusman - Last Filed: 02/24/19 00:43> - General Chief complaint: Abdominal Pain Stated complaint: RT sided flank pain, dizzy Time Seen by Provider: 02/23/19 18:45 - History of Present Illness Initial comments: This is a 78-year-old female presents emergency Department complaining of right- sided abdominal pain and right flank pain. Patient states it started 10 days ago and has gotten progressively worse. Patient went to [facility] today and they told to come to the emergency department. Patient denies any fever chills. Patient denies any nausea vomiting diarrhea. Patient denies any dysuria hematuria urinary frequency. Patient states she's had no back pain. Patient denies any injury or fall per patient denies any previous surgery on her abdomen other than a hysterectomy. Patient denies any chest pain difficult breathing shortness of breath. (Yash Small) - Related Data Home Medications Medication Instructions Recorded Confirmed Citalopram Hydrobromide 40 mg PO HS 01/02/16 12/31/18 [Citalopram HBr] Losartan [Cozaar] 25 mg PO BID 01/02/16 12/31/18 buPROPion XL [Wellbutrin XL] 300 mg PO DAILY 01/02/16 12/31/18 Insulin Aspart [NovoLOG Flexpen] See Protocol SQ TID 12/31/18 12/31/18 Previous Rx's Medication Instructions Recorded Albuterol Inhaler [Ventolin Hfa 2 puff INHALATION RT-Q6H PRN #1 01/05/19 Inhaler] inhaler Cefuroxime Axetil [Ceftin] 500 mg PO BID #10 tab 01/05/19 Furosemide [Lasix] 20 mg PO DAILY #30 tab 01/05/19 Insulin Glargine,Hum.rec.anlog 30 units SQ HS #0 01/05/19 [Basaglar Kwikpen U-100] Allergies Allergy/AdvReac Type Severity Reaction Status Date / Time latex Allergy Unknown Rash/Hives Verified 02/23/19 18:48 Review of Systems ROS Other: All systems not noted in ROS Statement are negative. <Yash Small - Last Filed: 02/23/19 20:31> ROS Other: All systems not noted in ROS Statement are negative. <GusmanCarly P - Last Filed: 02/24/19 00:43> ROS Statement: Those systems with pertinent positive or pertinent negative responses have been documented in the HPI. Past Medical History Past Medical History: Chest Pain / Angina, Diabetes Mellitus, Hypertension, Osteoarthritis (OA) Additional Past Medical History / Comment(s): VARICOSE VEINS, BACK PAIN, intermittent stool incontinence last 3-4 months, intermittent abd. pain History of Any Multi-Drug Resistant Organisms: None Reported Past Surgical History: Hysterectomy, Joint Replacement Additional Past Surgical History / Comment(s): ELIJAH TOTAL KNEES, LEFT THUMB, LOOP RECORDER removed, left shoulder replacement Past Anesthesia/Blood Transfusion Reactions: No Reported Reaction Type of Cardiac Device: Loop Device Placement Date:: 2014 Past Psychological History: Anxiety, Depression Smoking Status: Never smoker Past Alcohol Use History: None Reported Past Drug Use History: None Reported - Past Family History Sister(s) Family Medical History: Cancer Additional Family Medical History / Comment(s): SISTER #1 LEUKEMIA. SISTER #2 S TOMACH CA <Yash Small - Last Filed: 02/23/19 20:31> General Exam Limitations: no limitations <Yash Small - Last Filed: 02/23/19 20:31> - General Exam Comments Initial Comments: GENERAL: Patient is well-developed and well-nourished. Patient is nontoxic and well- hydrated and is in moderate distress. ENT: Neck is soft and supple. No significant lymphadenopathy is noted. Oropharynx is clear. Moist mucous membranes. Neck has full range of motion without eliciting any pain. EYES: The sclera were anicteric and conjunctiva were pink and moist. Extraocular movements were intact and pupils were equal round and reactive to light. Eyelids were unremarkable. PULMONARY: Unlabored respirations. Good breath sounds bilaterally. No audible rales rhonchi or wheezing was noted. CARDIOVASCULAR: There is a regular rate and rhythm without any murmurs gallops or rubs. ABDOMEN: Patient has rebound tenderness in the right lower quadrant also has tenderness in the right upper quadrant and left lower quadrant but not as significant as right lower quadrant. Patient also has flank tenderness on the right. SKIN: Skin is clear with no lesions or rashes and otherwise unremarkable. NEUROLOGIC: Patient is alert and oriented x3. Cranial nerves II through XII are grossly intact. Motor and sensory are also intact. Normal speech, volume and content. Symmetrical smile. MUSCULOSKELETAL: Normal extremities with adequate strength and full range of motion. No lower extremity swelling or edema. No calf tenderness. LYMPHATICS: No significant lymphadenopathy is noted PSYCHIATRIC: Normal psychiatric evaluation. (Yash Small) Course Vital Signs 02/23/19 02/23/19 02/23/19 18:44 21:10 21:30 Temperature 97.6 F Pulse Rate 55 L 60 59 L Respiratory 18 17 18 Rate Blood Pressure 188/82 180/97 214/103 O2 Sat by Pulse 97 97 97 Oximetry 02/23/19 02/23/19 02/23/19 21:50 22:00 22:10 Temperature Pulse Rate 57 L 60 61 Respiratory Rate Blood Pressure 188/78 174/81 157/96 O2 Sat by Pulse 97 98 96 Oximetry 02/23/19 02/23/19 02/23/19 22:20 22:30 22:40 Temperature Pulse Rate 55 L 60 56 L Respiratory 18 Rate Blood Pressure 184/85 189/85 179/86 O2 Sat by Pulse 96 96 96 Oximetry 02/23/19 23:00 Temperature Pulse Rate 60 Respiratory 17 Rate Blood Pressure 177/82 O2 Sat by Pulse 95 Oximetry Medical Decision Making <Yash Small - Last Filed: 02/23/19 20:31> - Lab Data Result diagrams: 02/23/19 20:35 02/23/19 20:35 <Carly Gusman - Last Filed: 02/24/19 00:43> - Medical Decision Making Dr. Gusman will be taking over the care of this patient at 9 PM (Yash Small) She care was signed out to me by Dr. Small. This is a pleasant 78-year-old female who presented with multiple days of right-sided abdominal pain. At the time of sign out labs have been obtained and she was pending CT imaging. CT imaging were no acute findings there is significant stool Burdon noted. Upon reevaluation patient reported that her pain resolved completely with Dilaudid however pain was returning. Patient was quite uncomfortable. HEENT was isolated the right side so an ultrasound of the right upper quadrant was ordered. Additional dose of morphine was ordered. Patient care was discussed with the patient's primary care physician Dr. Polo who agrees with plan for observation for intractable abdominal pain and the aggressive bowel protocol. (Carly Gusman) - Lab Data Lab Results 02/23/19 02/23/19 02/23/19 Range/Units 18:47 20:03 20:35 WBC (3.8-10.6) k/uL RBC (3.80-5.40) m/uL Hgb (11.4-16.0) gm/dL Hct (34.0-46.0) % MCV (80.0-100.0) fL MCH (25.0-35.0) pg MCHC (31.0-37.0) g/dL RDW (11.5-15.5) % Plt Count (150-450) k/uL Neutrophils % % Lymphocytes % % Monocytes % % Eosinophils % % Basophils % % Neutrophils # (1.3-7.7) k/uL Lymphocytes # (1.0-4.8) k/uL Monocytes # (0-1.0) k/uL Eosinophils # (0-0.7) k/uL Basophils # (0-0.2) k/uL Sodium 139 (137-145) mmol/L Potassium 5.0 (3.5-5.1) mmol/L Chloride 103 (98-107) mmol/L Carbon Dioxide 28 (22-30) mmol/L Anion Gap 8 mmol/L BUN 24 H (7-17) mg/dL Creatinine 0.98 (0.52-1.04) mg/dL Est GFR (CKD-EPI)AfAm 64 (>60 ml/min/1.73 sqM) Est GFR (CKD-EPI)NonAf 55 (>60 ml/min/1.73 sqM) Glucose 135 H (74-99) mg/dL POC Glucose (mg/dL) 181 H (75-99) mg/dL POC Glu [employer]ist Jose Cazares Plasma Lactic Acid Miquel (0.7-2.0) mmol/L Calcium 9.4 (8.4-10.2) mg/dL Total Bilirubin 0.6 (0.2-1.3) mg/dL AST 28 (14-36) U/L ALT 14 (4-34) U/L Alkaline Phosphatase 111 (38-126) U/L Total Protein 8.0 (6.3-8.2) g/dL Albumin 4.4 (3.5-5.0) g/dL Amylase 55 (30-110) U/L Lipase 75 (23-300) U/L Urine Color Yellow Urine Appearance Clear (Clear) Urine pH 5.5 (5.0-8.0) Ur Specific [place] 1.016 (1.001-1.035) Urine Protein 1+ H (Negative) Urine Glucose (UA) 3+ H (Negative) Urine Ketones Negative (Negative) Urine Blood Negative (Negative) Urine Nitrite Negative (Negative) Urine Bilirubin Negative (Negative) Urine Urobilinogen <2.0 (<2.0) mg/dL Ur Leukocyte Esterase Large H (Negative) Urine RBC 6 H (0-5) /hpf Urine WBC 13 H (0-5) /hpf Ur Squamous Epith Cells 1 (0-4) /hpf Urine Bacteria Rare H (None) /hpf Urine Mucus Rare H (None) /hpf 02/23/19 02/23/19 Range/Units 20:35 20:35 WBC 8.6 (3.8-10.6) k/uL RBC 4.64 (3.80-5.40) m/uL Hgb 13.7 (11.4-16.0) gm/dL Hct 42.5 (34.0-46.0) % MCV 91.6 (80.0-100.0) fL MCH 29.5 (25.0-35.0) pg MCHC 32.1 (31.0-37.0) g/dL RDW 13.5 (11.5-15.5) % Plt Count 311 (150-450) k/uL Neutrophils % 61 % Lymphocytes % 26 % Monocytes % 6 % Eosinophils % 5 % Basophils % 1 % Neutrophils # 5.3 (1.3-7.7) k/uL Lymphocytes # 2.2 (1.0-4.8) k/uL Monocytes # 0.5 (0-1.0) k/uL Eosinophils # 0.4 (0-0.7) k/uL Basophils # 0.1 (0-0.2) k/uL Sodium (137-145) mmol/L Potassium (3.5-5.1) mmol/L Chloride (98-107) mmol/L Carbon Dioxide (22-30) mmol/L Anion Gap mmol/L BUN (7-17) mg/dL Creatinine (0.52-1.04) mg/dL Est GFR (CKD-EPI)AfAm (>60 ml/min/1.73 sqM) Est GFR (CKD-EPI)NonAf (>60 ml/min/1.73 sqM) Glucose (74-99) mg/dL POC Glucose (mg/dL) (75-99) mg/dL POC Glu Radiotelegraphist ID Plasma Lactic Acid Miquel 1.4 (0.7-2.0) mmol/L Calcium (8.4-10.2) mg/dL Total Bilirubin (0.2-1.3) mg/dL AST (14-36) U/L ALT (4-34) U/L Alkaline Phosphatase (38-126) U/L Total Protein (6.3-8.2) g/dL Albumin (3.5-5.0) g/dL Amylase (30-110) U/L Lipase (23-300) U/L Urine Color Urine Appearance (Clear) Urine pH (5.0-8.0) Ur Specific [place] (1.001-1.035) Urine Protein (Negative) Urine Glucose (UA) (Negative) Urine Ketones (Negative) Urine Blood (Negative) Urine Nitrite (Negative) Urine Bilirubin (Negative) Urine Urobilinogen (<2.0) mg/dL Ur Leukocyte Esterase (Negative) Urine RBC (0-5) /hpf Urine WBC (0-5) /hpf Ur Squamous Epith Cells (0-4) /hpf Urine Bacteria (None) /hpf Urine Mucus (None) /hpf Disposition <Yash Small - Last Filed: 02/23/19 20:31> <Carly Gusman - Last Filed: 02/24/19 00:43> Clinical Impression: Abdominal pain Disposition: ADMITTED IP TO THIS [facility] Condition: Stable Referrals: Jon Polo DO [Primary Care Provider] - 1-2 days
[2019-02-23 20:43] LABS: Basophils # (A) 0.1 k/uL (0-0.2); Basophils % (A) 1 %; Eosinophils # (A) 0.4 k/uL (0-0.7); Eosinophils % (A) 5 %; HCT 42.5 % (34.0-46.0); HGB 13.7 gm/dL (11.4-16.0); Lymphocytes # (A) 2.2 k/uL (1.0-4.8); Lymphocytes % (A) 26 %; MCH 29.5 pg (25.0-35.0); MCHC 32.1 g/dL (31.0-37.0); MCV 91.6 fL (80.0-100.0); Mean Platelet Volume 7.2; Monocytes # (A) 0.5 k/uL (0-1.0); Monocytes % (A) 6 %; Neutrophils # (A) 5.3 k/uL (1.3-7.7); Neutrophils % (A) 61 %; Platelet Count 311 k/uL (150-450); RBC 4.64 m/uL (3.80-5.40); RDW 13.5 % (11.5-15.5); WBC 8.6 k/uL (3.8-10.6)
[2019-02-23 20:56] LABS: Appearance,Urine Clear (Clear); Bacteria,Urine Rare /hpf; Bilirubin,Urine Negative (Negative); Blood,Urine Negative (Negative); Color,Urine Yellow; Glucose,Urine (UA) 3+ (Negative); Ketones,Urine Negative (Negative); Leukocyte Esterase,Urine Large (Negative); Mucus,Urine Rare /hpf; Nitrite,Urine Negative (Negative); PH, Urine 5.5 (5.0-8.0); Protein,Urine 1+ (Negative); RBC,Urine 6 /hpf (0-5); Specific Gravity,Urine 1.016 (1.001-1.035); Squamous Epithelial Cell,Urine 1 /hpf (0-4); Urobilinogen,Urine <2.0 mg/dL (<2.0); WBC,Urine 13 /hpf (0-5)
[2019-02-23 20:57] LABS: Albumin 4.4 g/dL (3.5-5.0); Calcium 9.4 mg/dL (8.4-10.2); Total Bilirubin 0.6 mg/dL (0.2-1.3)
--- NOTE | 2019-02-23 21:43 | CT ---
EXAMINATION TYPE: CT abdomen pelvis w con DATE OF EXAM: 02/23/2019 COMPARISON: 12/31/2018 HISTORY: RLQ pain, dizziness x10 days, sent from [employer]. CT DLP: 1024.5 mGycm Automated exposure control for dose reduction was used. CONTRAST: Performed with IV Contrast, patient injected with 80 mL of Isovue 300. There is coarse interstitial density in the periphery of both lower lobes. There is no pleural effusi on. There is mild hiatal hernia. Heart size is fairly normal. There is no pericardial effusion. There is 1 cm calcified granuloma in the superior right lobe of the liver. There are other smaller hepatic calcified granulomata. Spleen is intact. There is no pancreatic mass. Gallbladder appears normal. Bi le ducts are not dilated. There is no adrenal mass. Kidneys show satisfactory contrast opacification. There is no hydronephrosi s. Ureters are not dilated. Bladder distends smoothly. There is no inguinal hernia. There is no free fluid in the pelvis. There is no mesenteric edema. There is no ascites or free air. There is no sign of a bowel obstructio n. Appendix is not definitely seen. There is no sign of thickened appendix. There are small calcified splenic granulomata. Lumbar vertebra have normal alignment. There is coarse trabeculae in the T11 vertebra related to a he mangioma. There is no compression fracture. The bony pelvis is intact. Abdominal aorta is atheromatou s. There is no evidence of a pelvic mass. IMPRESSION: Interstitial pulmonary infiltrates in the lower lobes is improved compared to last exam. There is pro bably pulmonary interstitial fibrosis. Old granulomatous disease. Atherosclerotic vascular disease. Appendix not seen. No acute abnormality within the abdomen pelvis.
[2019-02-23] MEDS ORDERED: MORPHINE SULFATE 4 MG/ML SYRINGE IVP STA (23:44)
[2019-02-23] MEDS ORDERED: LACTULOSE 20 GM/30 ML CUP PO PRN (23:49)
[2019-02-23] MEDS ORDERED: NALOXONE 0.4 MG/ML 1 ML VIAL IV PRN (23:49)
[2019-02-23] MEDS ORDERED: BISACODYL 5 MG TABLET.DR PO PRN (23:49)
--- NOTE | 2019-02-24 00:46 | US ---
EXAMINATION TYPE: US gallbladder DATE OF EXAM: 02/24/2019 COMPARISON: CT CLINICAL HISTORY: Right sided abd pain. Right-sided abdominal pain x 10 days. Dizziness. EXAM MEASUREMENTS: Liver Length: 16.4 cm Gallbladder Wall: 0.34 cm CHD: 0.47 cm CBD not visualized. Right Kidney: 9.6 x 4.8 x 4.8 cm *Limited due to overlying bowel gas. Pancreas: Not well visualized. Liver: Limited. Gallbladder: Appears to be anechoic. Wall measures upper limits of normal. Evidence for sonographic Arizmendi's sign: No CBD: Not well visualized. CHD measures 0.47 cm. Right Kidney: No hydronephrosis or masses seen IMPRESSION: No gallstones or dilated ducts. No free fluid. No focal liver defect.
[2019-02-24 06:41] LABS: Glucose,Whole Blood 129 mg/dL (75-99)
[2019-02-24] MEDS: LOSARTAN 25 MG TAB PO SCH ×2 (07:49→20:03)
[2019-02-24] MEDS: MORPHINE SULFATE 4 MG/ML SYRINGE IV PRN ×2 (07:50→15:56)
[2019-02-24] MEDS ORDERED: BISACODYL 5 MG TABLET.DR PO PRN (09:00)
[2019-02-24] MEDS ORDERED: DOCUSATE 100 MG CAP PO PRN (09:00)
[2019-02-24] MEDS ORDERED: buPROPion XL 150 MG TAB.ER.24H PO SCH (09:00)
[2019-02-24] MEDS ORDERED: INSULIN ASPART SQ SCH (09:00)
[2019-02-24] MEDS: DOCUSATE 100 MG CAP PO SCH ×2 (10:22→20:03)
[2019-02-24] MEDS: LACTULOSE 20 GM/30 ML CUP PO SCH (10:23)
[2019-02-24 11:35] LABS: Glucose,Whole Blood 199 mg/dL (75-99)
[2019-02-24] MEDS: INSULIN ASPART (NovoLOG) 100 UNIT/ML VIAL SQ SCH ×3 (12:13→20:02)
[2019-02-24] MEDS ORDERED: BISACODYL 10 MG SUPP RECTAL STA ×3 (15:47→23:03)
[2019-02-24 16:36] LABS: Glucose,Whole Blood 201 mg/dL (75-99)
[2019-02-24 19:34] LABS: Glucose,Whole Blood 203 mg/dL (75-99)
[2019-02-24] MEDS ORDERED: CITALOPRAM HYDROBROMIDE 10 MG TAB PO SCH (21:00)
[2019-02-24] MEDS ORDERED: CITALOPRAM HYDROBROMIDE 20 MG TAB PO SCH (21:00)
[2019-02-24] MEDS ORDERED: INSULIN DETEMIR (LEVEMIR) 100 UNIT/ML SYR SQ SCH ×2 (21:00)
[2019-02-25] MEDS: MORPHINE SULFATE 4 MG/ML SYRINGE IV PRN (06:37)
[2019-02-25 07:01] LABS: Glucose,Whole Blood 133 mg/dL (75-99)
[2019-02-25] MEDS: LACTULOSE 20 GM/30 ML CUP PO SCH (07:51)
[2019-02-25] MEDS: DOCUSATE 100 MG CAP PO SCH (07:52)
[2019-02-25] MEDS: INSULIN ASPART (NovoLOG) 100 UNIT/ML VIAL SQ SCH ×2 (07:52→11:53)
[2019-02-25] MEDS: LOSARTAN 25 MG TAB PO SCH (07:52)
[2019-02-25] MEDS ORDERED: NA PHOS,M-B/NA PHOS,DI-BA 133 ML ENEMA RECTAL STA (08:59)
[2019-02-25] MEDS ORDERED: buPROPion 75 MG TAB PO SCH (09:00)
[2019-02-25 09:16] VITALS: BP 170/79; PULSE 71; RESP 14; TEMP 98.5
[2019-02-25] MEDS ORDERED: LACTULOSE 20 GM/30 ML CUP PO SCH (13:00)
--- NOTE | 2019-02-25 16:59 | P.HPIM ---
History of Present Illness H&P Date: 02/24/19 Chief Complaint: Abdominal pain This is a 78-year-old female history of diabetes mellitus, hypertension, osteoarthritis, anxiety, depression and multiple other medical issues presented to the ER with complaints of right sided abdominal and flank pain 10 days. [facility] and [facility] to the emergency room. Denies fever or chills. Denies dysuria, frequency or hematuria. Gallbladder ultrasound performed reporting no gallstones or dilated ducts no free fluid, no focal liver defect. Abdomen/pelvis CT report interstitial pulmonary infiltrates in the lower lobes, most likely pulmonary interstitial fibrosis, old granulomatosis disease, 1 cm calcified granuloma in the right lobe of the liver with other smaller hepatic calcified granulomata, no acute abnormality. Per ERs review of CT, significant stool burden. UA reporting large leukocytes, 13 WBCs , culture pending .Denies chest pain, palpitations or shortness of breath. Denies lightheadedness, dizziness or focal deficits. Denies back pain. Received IV antibiotics, IV pain medication in the ER and patient placed on aggressive bowel protocol. Afebrile, normal WBC.VSS. Review of Systems ROS Other: All systems not noted in ROS Statement are negative. ROS Statement: Those systems with pertinent positive or pertinent negative responses have been documented in the HPI. Past Medical History Past Medical History: Chest Pain / Angina, Diabetes Mellitus, Hypertension, Osteoarthritis (OA) Additional Past Medical History / Comment(s): VARICOSE VEINS, BACK PAIN, intermittent abd. pain History of Any Multi-Drug Resistant Organisms: None Reported Past Surgical History: Hysterectomy, Joint Replacement Additional Past Surgical History / Comment(s): ELIJAH TOTAL KNEES, LEFT THUMB, LOOP RECORDER removed, left shoulder replacement Past Anesthesia/Blood Transfusion Reactions: No Reported Reaction Type of Cardiac Device: Loop Device Placement Date:: 2014 Past Psychological History: Anxiety, Depression Smoking Status: Never smoker Past Alcohol Use History: None Reported Past Drug Use History: None Reported - Past Family History Sister(s) Family Medical History: Cancer Additional Family Medical History / Comment(s): SISTER #1 LEUKEMIA. SISTER #2 STOMACH CA Medications and Allergies Home Medications Medication Instructions Recorded Confirmed Type Losartan [Cozaar] 25 mg PO BID 01/02/16 02/24/19 History Insulin Aspart [NovoLOG Flexpen] See Protocol SQ AC-TID 12/31/18 02/24/19 History Cefuroxime Axetil [Ceftin] 500 mg PO BID #14 tab 02/24/19 Rx Citalopram Hydrobromide 10 mg PO HS 02/24/19 02/24/19 History [Citalopram HBr] Docusate [Colace] 100 mg PO BID #30 cap 02/24/19 Rx Insulin Glargine,Hum.rec.anlog 30 - 40 unit SQ HS 02/24/19 02/24/19 History [Basaglar Kwikpen U-100] Pantoprazole Sodium [Protonix] 40 mg PO DAILY #15 tablet. 02/24/19 Rx Sennosides-Docusate Sodium 2 tab PO HS #60 tablet 02/24/19 Rx [Senokot-S] buPROPion [Wellbutrin] 75 mg PO QAM 02/24/19 02/24/19 History Allergies Allergy/AdvReac Type Severity Reaction Status Date / Time latex Allergy Unknown Rash/Hives Verified 02/24/19 07:17 Physical Exam Vitals: Vital Signs Temp Pulse Resp BP BP Pulse Ox 02/25/19 08:00 98.5 F 71 14 170/79 92 L 02/25/19 03:52 18 02/24/19 23:44 18 02/24/19 23:31 98.7 F 68 17 156/75 98 02/24/19 20:00 18 02/24/19 19:03 98.3 F 69 19 144/53 92 L Intake and Output 02/25/19 02/25/19 02/25/19 06:59 14:59 22:59 Output Total 1 Balance -1 Output: Urine/Stool Mix 1 Other: Voiding Method Toilet Toilet # Voids 1 PHYSICAL EXAM: VITAL SIGNS: Temperature 98.2, pulse 62, respiratory rate 18, blood pressure 140/69, O2 sat 96% on RA GENERAL: Sitting up in bed, tired appearing HEENT: Conjunctivae normal. eyes normal. NECK: No JVD. No thyroid enlargement. No LNs CARDIOVASCULAR: S1, S2 regular.. No murmur RESPIRATION: Breath sounds diminished in the bases. No rhonchi or crackles. No bronchial breathing. ABDOMEN: Soft, distended, right upper quadrant tender .No guarding. no masses palpable. No ascites, No hepatosplenomegaly.Bowel sounds heard. LEGS: No edema. no swelling PSYCHIATRY: Alert and oriented X3, mood and affect normal. NERVOUS SYSTEM: Cranial N 2-12 grossly normal. Moves all 4 limbs. Diffuse weakness No focal deficits. Strength and sensation grossly intact.. Skin: no lesions, no rash Joints: No active swelling. No inflammation. Lymphatic system. No LN neck axilla. Results CBC & Chem 7: 02/23/19 20:35 02/23/19 20:35 Labs: Abnormal Lab Results - Last 24 Hours (Table) 02/23/19 02/24/19 02/24/19 Range/Units 06:00 16:34 19:32 POC Glucose (mg/dL) 201 H 203 H (75-99) mg/dL Hemoglobin A1c 8.0 H (4.0-6.0) % 02/25/19 Range/Units 06:59 POC Glucose (mg/dL) 133 H (75-99) mg/dL Hemoglobin A1c (4.0-6.0) % Microbiology - Last 24 Hours (Table) 02/23/19 20:03 Urine Culture - Final Urine,Voided Thrombosis Risk Factor Assmnt - Choose All That Apply Each Factor Represents 1 point: Obesity (BMI >25) Each Risk Factor Represents 3 Points: Age 75 years or older Thrombosis Risk Factor Assessment Total Risk Factor Score: 4 Thrombosis Risk Factor Assessment Level: Moderate Risk Assessment and Plan Assessment: Abdominal pain secondary to constipation, possible acute UTI Diabetes mellitus Hypertension Anxiety Depression Plan: Continue on current medication regime ,monitoring and symptomatic treatment. Maintain IV antibiotics of Rocephin and bowel regimen. Patient may be discharged later this afternoon after patient has a bowel movement. Further recommendations to follow. The impression and plan of care has been dictated as directed. : I performed a history and examination of this patient, discussed the same with the dictator. I agree with the dictator's note ,documented as a scribe. Any additional findings or plans will be noted.
--- NOTE | 2019-02-25 17:03 | P.DS ---
Providers Date of admission: 02/25/19 08:17 Expected date of discharge: 02/25/19 Attending physician: Jon Polo Primary care physician: Jon Polo [facility] Course: Final Diagnoses: Abdominal pain secondary to constipation, possible acute UTI Diabetes mellitus Hypertension Anxiety Depression Hospital course:This is a 78-year-old female history of diabetes mellitus, hypertension, osteoarthritis, anxiety, depression and multiple other medical issues presented to the ER with complaints of right sided abdominal and flank pain 10 days. [facility] and referred to the emergency room. Denies fever or chills. Denies dysuria, frequency or hematuria. Gallbladder ultrasound performed reporting no gallstones or dilated ducts no free fluid, no focal liver defect. Abdomen/pelvis CT report interstitial pulmonary infiltrates in the lower lobes, most likely pulmonary interstitial fibrosis, old granulomatosis disease, 1 cm calcified granuloma in the right lobe of the liver with other smaller hepatic calcified granulomata, no acute abnormality. Per ERs review of CT, significant stool burden. UA reporting large leukocytes, 13 WBCs , culture pending .Denies chest pain, palpitations or shortness of breath. Denies lightheadedness, dizziness or focal deficits. Denies back pain. Received IV antibiotics, IV pain medication in the ER and patient placed on aggressive bowel protocol. Afebrile, normal WBC.VSS. Positive bowel movement, pain subsided. Significant clinical improvement. Patient is being discharged home in a stable condition with guarded prognosis. EXAM: GENERAL: Alert and oriented 3, no acute distress. CARDIOVASCULAR: S1, S2 regular.. No murmur RESPIRATION: Breath sounds diminished in the bases. No rhonchi or crackles. ABDOMEN: Soft, nontender, No guarding. no masses palpable.Bowel sounds heard. NERVOUS SYSTEM: No focal deficits. The impression and plan of care has been dictated as directed. : I performed a history and examination of this patient, discussed the same with the dictator. I agree with the dictator's note ,documented as a scribe. Any additional findings or plans will be noted. Patient Condition at Discharge: Stable Plan - Discharge Summary New Discharge Prescriptions: New Cefuroxime Axetil [Ceftin] 500 mg PO BID #14 tab Docusate [Colace] 100 mg PO BID #30 cap Sennosides-Docusate Sodium [Senokot-S] 2 tab PO HS #60 tablet Pantoprazole Sodium [Protonix] 40 mg PO DAILY #15 tablet.dr Arnaldo Losartan [Cozaar] 25 mg PO BID Insulin Aspart [NovoLOG Flexpen] See Protocol SQ AC-TID buPROPion [Wellbutrin] 75 mg PO QAM Insulin Glargine,Hum.rec.anlog [Basaglar Kwikpen U-100] 30 - 40 unit SQ HS Citalopram Hydrobromide [Citalopram HBr] 10 mg PO HS Discharge Medication List Losartan [Cozaar] 25 mg PO BID 01/02/16 [History] Insulin Aspart [NovoLOG Flexpen] See Protocol SQ AC-TID 12/31/18 [History] Cefuroxime Axetil [Ceftin] 500 mg PO BID #14 tab 02/24/19 [Rx] Citalopram Hydrobromide [Citalopram HBr] 10 mg PO HS 02/24/19 [History] Docusate [Colace] 100 mg PO BID #30 cap 02/24/19 [Rx] Insulin Glargine,Hum.rec.anlog [Basaglar Kwikpen U-100] 30 - 40 unit SQ HS 02/24/19 [History] Pantoprazole Sodium [Protonix] 40 mg PO DAILY #15 tablet. 02/24/19 [Rx] Sennosides-Docusate Sodium [Senokot-S] 2 tab PO HS #60 tablet 02/24/19 [Rx] buPROPion [Wellbutrin] 75 mg PO QAM 02/24/19 [History] Follow up Appointment(s)/Referral(s): Jon Polo DO [Primary Care Provider] - 3 Days Ambulatory/Diagnostic Orders: Complete Blood Count w/diff [LAB.AMB] Time Frame: 3 Days, Location: None Selected Patient Instructions/Handouts: Acute Abdominal Pain (DC), Dizziness (GEN) Activity/Diet/Wound Care/Special Instructions: Final urine culture results to be faxed to PCPs office Discharge Disposition: HOME SELF-CARE
== END 2019-02-25 13:22 | disposition home or self-care (01) | DRG 690 ==
LOC: EC 18:23 → 1SOBS 02-24 00:43 → OBSVTOIN 02-25 08:17
PROVIDERS: ADMIT Family Medicine; ATTEND Family Medicine
DX: N39.0 Urinary tract infection, site not specified (principal); K59.00 Constipation, unspecified; E11.9 Type 2 diabetes mellitus without complications; F32.9 Major depressive disorder, single episode, unspecified; F41.9 Anxiety disorder, unspecified; I10 Essential (primary) hypertension; Z96.612 Presence of left artificial shoulder joint; J84.10 Pulmonary fibrosis, unspecified; Z79.899 Other long term (current) drug therapy; Z80.0 Family history of malignant neoplasm of digestive organs; Z80.6 Family history of leukemia; Z90.710 Acquired absence of both cervix and uterus; Z91.040 Latex allergy status
CPT/HCPCS: 36415; 74177; 76705; 80053; 81001; 82150; 83036; 83605; 83690; 85025; 87086; 96365; 96375; 99285

== ENCOUNTER 2019-02-27 10:09 | Inpatient (IN) | payer MEDICARE, BC ==
[2019-02-27] MEDS ORDERED: ONDANSETRON 4 MG/2 ML VIAL IVP STA (10:48)
[2019-02-27] MEDS ORDERED: PANTOPRAZOLE 40 MG/10 ML VIAL IVP STA (10:48)
[2019-02-27] MEDS ORDERED: SODIUM CHLORIDE 0.9% 1,000 ML IV STA ×2 (10:48)
[2019-02-27] MEDS ORDERED: MORPHINE SULFATE 4 MG/ML SYRINGE IV STA (10:48)
--- NOTE | 2019-02-27 11:11 | ED ---
Abdominal Pain HPI - General Chief Complaint: Abdominal Pain Stated Complaint: Abd Pain Time Seen by Provider: 02/27/19 10:40 Source: patient, RN notes reviewed, old records reviewed Mode of arrival: ambulatory Limitations: no limitations - History of Present Illness Initial Comments: Patient is a 78-year-old female presents for reevaluation for right-sided flank and abdominal pain. Patient reports symptoms radiate around towards her back. Patient states that she was admitted recently was diagnosed constipation. She reports that after enema and enema she had a small bowel movement, but continued to have pain in her right side. Patient reports that she's had a history of hysterectomy. Patient denies any changes in urination. She's not had a bowel movement since discharge as well. - Related Data Home Medications Medication Instructions Recorded Confirmed Losartan [Cozaar] 25 mg PO BID 01/02/16 02/24/19 Insulin Aspart [NovoLOG Flexpen] See Protocol SQ AC-TID 12/31/18 02/24/19 Citalopram Hydrobromide 10 mg PO HS 02/24/19 02/24/19 [Citalopram HBr] Insulin Glargine,Hum.rec.anlog 30 - 40 unit SQ HS 02/24/19 02/24/19 [Basaglar Kwikpen U-100] buPROPion [Wellbutrin] 75 mg PO QAM 02/24/19 02/24/19 Previous Rx's Medication Instructions Recorded Cefuroxime Axetil [Ceftin] 500 mg PO BID #14 tab 02/24/19 Docusate [Colace] 100 mg PO BID #30 cap 02/24/19 Pantoprazole Sodium [Protonix] 40 mg PO DAILY #15 tablet. 02/24/19 Sennosides-Docusate Sodium 2 tab PO HS #60 tablet 02/24/19 [Senokot-S] Allergies Allergy/AdvReac Type Severity Reaction Status Date / Time latex Allergy Unknown Rash/Hives Verified 02/27/19 10:15 Review of Systems ROS Statement: Those systems with pertinent positive or pertinent negative responses have been documented in the HPI. ROS Other: All systems not noted in ROS Statement are negative. Past Medical History Past Medical History: Chest Pain / Angina, Diabetes Mellitus, Hypertension, Osteoarthritis (OA) Additional Past Medical History / Comment(s): VARICOSE VEINS, BACK PAIN, intermittent abd. pain History of Any Multi-Drug Resistant Organisms: None Reported Past Surgical History: Hysterectomy, Joint Replacement Additional Past Surgical History / Comment(s): ELIJAH TOTAL KNEES, LEFT THUMB, LOOP RECORDER removed, left shoulder replacement Past Anesthesia/Blood Transfusion Reactions: No Reported Reaction Type of Cardiac Device: Loop Device Placement Date:: 2014 Past Psychological History: Anxiety, Depression Smoking Status: Never smoker Past Alcohol Use History: None Reported Past Drug Use History: None Reported - Past Family History Sister(s) Family Medical History: Cancer Additional Family Medical History / Comment(s): SISTER #1 LEUKEMIA. SISTER #2 STOMACH CA General Exam - General Exam Comments Initial Comments: 78-year-old female. Alert and oriented 3. Patient appears in no significant distress. Limitations: no limitations General appearance: alert, in no apparent distress Head exam: Present: atraumatic, normocephalic, normal inspection Eye exam: Present: normal appearance, PERRL, EOMI. Absent: scleral icterus, conjunctival injection, periorbital swelling ENT exam: Present: normal exam, mucous membranes moist Neck exam: Present: normal inspection. Absent: tenderness, meningismus, lymphadenopathy Respiratory exam: Present: normal lung sounds bilaterally. Absent: respiratory distress, wheezes, rales, rhonchi, stridor Cardiovascular Exam: Present: regular rate, normal rhythm, normal heart sounds. Absent: systolic murmur, diastolic murmur, rubs, gallop, clicks GI/Abdominal exam: Present: soft, tenderness (Right upper town quadrant tenderness and guarding.), normal bowel sounds. Absent: distended, guarding, rebound, rigid Extremities exam: Present: normal inspection, full ROM, normal capillary refill. Absent: tenderness, pedal edema, joint swelling, calf tenderness Back exam: Present: normal inspection Neurological exam: Present: alert, oriented X3, CN II-XII intact Psychiatric exam: Present: normal affect, normal mood Skin exam: Present: warm, dry, intact, normal color. Absent: rash Course Vital Signs 02/27/19 10:13 Temperature 98.3 F Pulse Rate 75 Respiratory 18 Rate Blood Pressure 152/77 O2 Sat by Pulse 98 Oximetry Medical Decision Making - Medical Decision Making 70-year-old female presents today for evaluation for right-sided abdominal pain. She reports she is recently admitted for constipation. She reports not signi ficant success after an enema while previously admitted. Patient doesn't tenderness, guarding on her right side. Patient's vital signs and lab work was reviewed and unremarkable. Patient's given multiple enemas, magnesium citrate, so unable to pass stool. KUB does show a moderate amount of stool burden on the right side of her abdomen. She reviewed patient's CT scans and ultrasounds from her blast admission. Patient's case was discussed Dr. Santiago who also examined the Patient. This gentleman the Patient for continued evaluation for this right-sided abdominal pain and it possible consult to surgery. - Lab Data Result diagrams: 02/27/19 10:58 02/27/19 10:58 Lab Results 02/27/19 02/27/19 02/27/19 Range/Units 10:58 10:58 10:58 WBC 7.4 (3.8-10.6) k/uL RBC 4.44 (3.80-5.40) m/uL Hgb 13.4 (11.4-16.0) gm/dL Hct 40.1 (34.0-46.0) % MCV 90.4 (80.0-100.0) fL MCH 30.2 (25.0-35.0) pg MCHC 33.5 (31.0-37.0) g/dL RDW 13.4 (11.5-15.5) % Plt Count 298 (150-450) k/uL Neutrophils % 73 % Lymphocytes % 14 % Monocytes % 6 % Eosinophils % 5 % Basophils % 1 % Neutrophils # 5.4 (1.3-7.7) k/uL Lymphocytes # 1.0 (1.0-4.8) k/uL Monocytes # 0.5 (0-1.0) k/uL Eosinophils # 0.4 (0-0.7) k/uL Basophils # 0.1 (0-0.2) k/uL PT (9.0-12.0) sec INR (<1.2) APTT (22.0-30.0) sec Sodium 138 (137-145) mmol/L Potassium 4.6 (3.5-5.1) mmol/L Chloride 103 (98-107) mmol/L Carbon Dioxide 26 (22-30) mmol/L Anion Gap 9 mmol/L BUN 16 (7-17) mg/dL Creatinine 1.03 (0.52-1.04) mg/dL Est GFR (CKD-EPI)AfAm 60 (>60 ml/min/1.73 sqM) Est GFR (CKD-EPI)NonAf 52 (>60 ml/min/1.73 sqM) Glucose 114 H (74-99) mg/dL Plasma Lactic Acid Miquel 1.8 (0.7-2.0) mmol/L Calcium 9.2 (8.4-10.2) mg/dL Total Bilirubin 0.6 (0.2-1.3) mg/dL AST 24 (14-36) U/L ALT 12 (4-34) U/L Alkaline Phosphatase 101 (38-126) U/L Total Protein 7.4 (6.3-8.2) g/dL Albumin 4.1 (3.5-5.0) g/dL Amylase 33 (30-110) U/L Lipase 41 (23-300) U/L Urine Color Urine Appearance (Clear) Urine pH (5.0-8.0) Ur Specific [place] (1.001-1.035) Urine Protein (Negative) Urine Glucose (UA) (Negative) Urine Ketones (Negative) Urine Blood (Negative) Urine Nitrite (Negative) Urine Bilirubin (Negative) Urine Urobilinogen (<2.0) mg/dL Ur Leukocyte Esterase (Negative) Urine RBC (0-5) /hpf Urine WBC (0-5) /hpf Ur Squamous Epith Cells (0-4) /hpf Hyaline Casts (0-2) /lpf Urine Mucus (None) /hpf 02/27/19 02/27/19 Range/Units 10:58 10:58 WBC (3.8-10.6) k/uL RBC (3.80-5.40) m/uL Hgb (11.4-16.0) gm/dL Hct (34.0-46.0) % MCV (80.0-100.0) fL MCH (25.0-35.0) pg MCHC (31.0-37.0) g/dL RDW (11.5-15.5) % Plt Count (150-450) k/uL Neutrophils % % Lymphocytes % % Monocytes % % Eosinophils % % Basophils % % Neutrophils # (1.3-7.7) k/uL Lymphocytes # (1.0-4.8) k/uL Monocytes # (0-1.0) k/uL Eosinophils # (0-0.7) k/uL Basophils # (0-0.2) k/uL PT 10.5 (9.0-12.0) sec INR 1.0 (<1.2) APTT 25.3 (22.0-30.0) sec Sodium (137-145) mmol/L Potassium (3.5-5.1) mmol/L Chloride (98-107) mmol/L Carbon Dioxide (22-30) mmol/L Anion Gap mmol/L BUN (7-17) mg/dL Creatinine (0.52-1.04) mg/dL Est GFR (CKD-EPI)AfAm (>60 ml/min/1.73 sqM) Est GFR (CKD-EPI)NonAf (>60 ml/min/1.73 sqM) Glucose (74-99) mg/dL Plasma Lactic Acid Miquel (0.7-2.0) mmol/L Calcium (8.4-10.2) mg/dL Total Bilirubin (0.2-1.3) mg/dL AST (14-36) U/L ALT (4-34) U/L Alkaline Phosphatase (38-126) U/L Total Protein (6.3-8.2) g/dL Albumin (3.5-5.0) g/dL Amylase (30-110) U/L Lipase (23-300) U/L Urine Color Yellow Urine Appearance Cloudy H (Clear) Urine pH 5.5 (5.0-8.0) Ur Specific [place] 1.018 (1.001-1.035) Urine Protein 1+ H (Negative) Urine Glucose (UA) Trace H (Negative) Urine Ketones Negative (Negative) Urine Blood Negative (Negative) Urine Nitrite Negative (Negative) Urine Bilirubin Negative (Negative) Urine Urobilinogen <2.0 (<2.0) mg/dL Ur Leukocyte Esterase Small H (Negative) Urine RBC 2 (0-5) /hpf Urine WBC 11 H (0-5) /hpf Ur Squamous Epith Cells 1 (0-4) /hpf Hyaline Casts 9 H (0-2) /lpf Urine Mucus Occasional H (None) /hpf Disposition Clinical Impression: Abdominal pain, Right sided abdominal pain Disposition: ADMITTED IP TO THIS HOSP Condition: Stable Additional Instructions: Please use medication as discussed. Please follow up with family doctor if symptoms have not improved over the next two days. Please return to the emerge ncy room if your symptoms increase or worsen or for any other concerns. Is patient prescribed a controlled substance at d/c from ED?: No Referrals: Jon Polo DO [Primary Care Provider] - 1-2 days Time of Disposition: 16:25
[2019-02-27 11:20] LABS: Basophils # (A) 0.1 k/uL (0-0.2); Basophils % (A) 1 %; Eosinophils # (A) 0.4 k/uL (0-0.7); Eosinophils % (A) 5 %; HCT 40.1 % (34.0-46.0); HGB 13.4 gm/dL (11.4-16.0); Lymphocytes % (A) 14 %; MCH 30.2 pg (25.0-35.0); MCHC 33.5 g/dL (31.0-37.0); MCV 90.4 fL (80.0-100.0); Mean Platelet Volume 7.2; Monocytes # (A) 0.5 k/uL (0-1.0); Monocytes % (A) 6 %; Neutrophils # (A) 5.4 k/uL (1.3-7.7); Neutrophils % (A) 73 %; Platelet Count 298 k/uL (150-450); RBC 4.44 m/uL (3.80-5.40); RDW 13.4 % (11.5-15.5); WBC 7.4 k/uL (3.8-10.6)
[2019-02-27 11:29] LABS: Albumin 4.1 g/dL (3.5-5.0); Calcium 9.2 mg/dL (8.4-10.2); Potassium 4.6 mmol/L (3.5-5.1); Total Bilirubin 0.6 mg/dL (0.2-1.3); Total Protein 7.4 g/dL (6.3-8.2)
[2019-02-27 11:37] LABS: Partial Thromboplastin Time 25.3 sec (22.0-30.0); Prothrombin Time 10.5 sec (9.0-12.0)
[2019-02-27 12:07] LABS: Appearance,Urine Cloudy (Clear); Bilirubin,Urine Negative (Negative); Blood,Urine Negative (Negative); Color,Urine Yellow; Glucose,Urine (UA) Trace (Negative); Hyaline Casts,Urine 9 /lpf (0-2); Ketones,Urine Negative (Negative); Leukocyte Esterase,Urine Small (Negative); Mucus,Urine Occasional /hpf; Nitrite,Urine Negative (Negative); PH, Urine 5.5 (5.0-8.0); Protein,Urine 1+ (Negative); RBC,Urine 2 /hpf (0-5); Specific Gravity,Urine 1.018 (1.001-1.035); Squamous Epithelial Cell,Urine 1 /hpf (0-4); Urobilinogen,Urine <2.0 mg/dL (<2.0); WBC,Urine 11 /hpf (0-5)
--- NOTE | 2019-02-27 12:48 | XR ---
EXAMINATION TYPE: XR KUB , 2 VIEWS DATE OF EXAM ORDERED: 02/27/2019 HISTORY: abdominal pain. COMPARISON: None. FINDINGS: Lung bases are clear. Within the abdomen, the abdominal gas pattern is normal. There is no evidence of obstruction or free air. No unusual calcifications are seen. There are degenerative changes present in both hips. IMPRESSION: NO ACUTE INTRA-ABDOMINAL ABNORMALITY.
[2019-02-27] MEDS ORDERED: MAGNESIUM CITRATE 296 ML BOTTLE PO ONE (13:07)
[2019-02-27] MEDS ORDERED: DOCUSATE 283 MG/5 ML ENEMA RECTAL STA (14:13)
[2019-02-27] MEDS ORDERED: ACETAMINOPHEN TAB 500 MG TAB PO STA (16:23)
[2019-02-27] MEDS ORDERED: IBUPROFEN 600 MG TAB PO STA (16:23)
[2019-02-27] MEDS ORDERED: LACTULOSE 20 GM/30 ML CUP PO ONE (16:23)
[2019-02-27] MEDS ORDERED: ONDANSETRON 4 MG/2 ML VIAL IVP PRN (16:26)
[2019-02-27] MEDS ORDERED: NALOXONE 0.4 MG/ML 1 ML VIAL IV PRN (16:26)
[2019-02-27] MEDS ORDERED: MORPHINE SULFATE 4 MG/ML SYRINGE IV PRN (16:26)
[2019-02-27] MEDS: SODIUM CHLORIDE 0.9% 1,000 ML IV SCH ×2 (16:33→22:07)
[2019-02-27] MEDS ORDERED: INSULIN DETEMIR (LEVEMIR) 100 UNIT/ML SYR SQ SCH (21:00)
[2019-02-27 21:45] LABS: Glucose,Whole Blood 116 mg/dL (75-99)
[2019-02-27] MEDS: INSULIN ASPART (NovoLOG) 100 UNIT/ML VIAL SQ SCH (22:00)
[2019-02-27] MEDS: LOSARTAN 25 MG TAB PO SCH (22:01)
[2019-02-27] MEDS: CITALOPRAM HYDROBROMIDE 10 MG TAB PO SCH (22:01)
[2019-02-27] MEDS: CEFDINIR 300 MG CAP PO SCH (22:02)
[2019-02-28 07:11] LABS: Glucose,Whole Blood 145 mg/dL (75-99)
[2019-02-28] MEDS ORDERED: PANTOPRAZOLE 40 MG TABLET PO SCH (07:30)
[2019-02-28] MEDS: INSULIN ASPART (NovoLOG) 100 UNIT/ML VIAL SQ SCH ×4 (07:56→21:32)
[2019-02-28] MEDS: LOSARTAN 25 MG TAB PO SCH ×2 (07:56→20:44)
[2019-02-28] MEDS: buPROPion 75 MG TAB PO SCH (07:56)
[2019-02-28] MEDS: CEFDINIR 300 MG CAP PO SCH ×2 (07:56→20:44)
[2019-02-28] MEDS: traMADol 50 MG TAB PO PRN ×2 (08:03→15:25)
[2019-02-28] MEDS ORDERED: PANTOPRAZOLE 40 MG/10 ML VIAL IV SCH (09:00)
[2019-02-28] MEDS: SODIUM CHLORIDE 0.9% 1,000 ML IV SCH (11:30)
[2019-02-28 11:59] LABS: Glucose,Whole Blood 192 mg/dL (75-99)
--- NOTE | 2019-02-28 15:43 | P.HPIM ---
History of Present Illness H&P Date: 02/28/19 This is 78-year-old female history of diabetes mellitus, hypertension, anxiety, depression and multiple other medical issues recently discharged on 02/25/2019 with right-sided abdominal and flank pain secondary to constipation and possible acute UTI. Abdomen/pelvis CT on that admission reported no acute abnormality, stool burden. Received IV antibiotics, responded well to cathartics with resolution of abdominal pain after having bowel movement and patient was discharged home. Patient returned to the ER on Thursday, stating she had bowel movements on Thursday, Thursday and none on Thursday, with right lower quadrant abdominal pain reoccurring. Reports small bowel movement this morning. States right lower quadrant pain to be continuous, unable to lay on her right side ,no rebound. No nausea, no emesis. KUB reporting no acute intra-abdominal abnormality. CBC, CMP unremarkable, blood sugars controlled, UA Review of Systems ROS Statement: Those systems with pertinent positive or pertinent negative responses have been documented in the HPI. ROS Other: All systems not noted in ROS Statement are negative. Past Medical History Past Medical History: Chest Pain / Angina, Diabetes Mellitus, Hypertension, Osteoarthritis (OA) Additional Past Medical History / Comment(s): VARICOSE VEINS, BACK PAIN, SEPSIS, PULMONARY FIBROSIS History of Any Multi-Drug Resistant Organisms: None Reported Past Surgical History: Hysterectomy, Joint Replacement Additional Past Surgical History / Comment(s): ELIJAH TOTAL KNEES, LEFT THUMB ligament repair, LOOP RECORDER removed, left shoulder replacement Past Anesthesia/Blood Transfusion Reactions: No Reported Reaction Type of Cardiac Device: Loop Device Placement Date:: 2014 Past Psychological History: Anxiety, Depression Smoking Status: Never smoker Past Alcohol Use History: None Reported Past Drug Use History: None Reported - Past Family History Sister(s) Family Medical History: Cancer Additional Family Medical History / Comment(s): SISTER #1 LEUKEMIA. SISTER #2 STOMACH [place] Medications and Allergies Home Medications Medication Instructions Recorded Confirmed Type Losartan [Cozaar] 25 mg PO BID 01/02/16 02/27/19 History Insulin Aspart [NovoLOG Flexpen] See Protocol SQ AC-TID 12/31/18 02/27/19 History Cefuroxime Axetil [Ceftin] 500 mg PO BID #14 tab 02/24/19 02/27/19 Rx Citalopram Hydrobromide 10 mg PO HS 02/24/19 02/27/19 History [Citalopram HBr] Docusate [Colace] 100 mg PO BID #30 cap 02/24/19 02/27/19 Rx Insulin Glargine,Hum.rec.anlog 30 - 40 unit SQ HS 02/24/19 02/27/19 History [Basaglar Kwikpen U-100] Pantoprazole Sodium [Protonix] 40 mg PO DAILY #15 tablet. 02/24/19 02/27/19 Rx Sennosides-Docusate Sodium 2 tab PO HS #60 tablet 02/24/19 02/27/19 Rx [Senokot-S] buPROPion [Wellbutrin] 75 mg PO QAM 02/24/19 02/27/19 History traMADol HCL 50 mg PO TID PRN 02/27/19 02/27/19 History Allergies Allergy/AdvReac Type Severity Reaction Status Date / Time latex Allergy Unknown Rash/Hives Verified 02/27/19 16:36 Physical Exam Vitals: Vital Signs Temp Pulse Pulse Pulse Resp BP BP 02/28/19 12:47 96.8 F L 57 L 20 152/71 02/28/19 06:08 98.1 F 63 18 02/27/19 21:40 97.9 F 57 L 16 02/27/19 18:13 98.0 F 53 L 20 02/27/19 16:52 54 L 18 133/79 BP Pulse Ox 02/28/19 12:47 94 L 02/28/19 06:08 181/75 97 02/27/19 21:40 168/70 97 02/27/19 18:13 158/78 97 02/27/19 16:52 97 Intake and Output 02/28/19 02/28/19 02/28/19 06:59 14:59 22:59 Intake Total 600 Balance 600 Intake: IV 600 Sodium Chloride 0.9% 1, 600 000 ml @ 75 mls/hr IV . [id number] [facility] Rx#:[id number] VITAL SIGNS: As above GENERAL: Sitting up in bed, no acute distress HEENT: Conjunctivae normal. eyes normal. NECK: No JVD. No thyroid enlargement. No LNs CARDIOVASCULAR: S1, S2 regular.. No murmur RESPIRATION: Breath sounds diminished in the bases. No rhonchi or crackles. No bronchial breathing. ABDOMEN: Soft, nondistended, right lower quadrant tender .No rebound, no guarding. no masses palpable. No ascites, No hepatosplenomegaly.Bowel sounds heard. LEGS: No edema. no swelling PSYCHIATRY: Alert and oriented X3, mood and affect normal. NERVOUS SYSTEM: Cranial N 2-12 grossly normal. Moves all 4 limbs. Diffuse weakness No focal deficits. Strength and sensation grossly intact.. Skin: no lesions, no rash Joints: No active swelling. No inflammation. Lymphatic system. No LN neck axilla. Results CBC & Chem 7: 02/27/19 10:58 02/27/19 10:58 Labs: Abnormal Lab Results - Last 24 Hours (Table) 02/27/19 02/28/19 02/28/19 Range/Units 21:39 07:03 11:57 POC Glucose (mg/dL) 116 H 145 H 192 H (75-99) mg/dL Microbiology - Last 24 Hours (Table) 02/27/19 10:58 Urine Culture - Preliminary Urine,Voided Thrombosis Risk Factor Assmnt - Choose All That Apply Each Factor Represents 1 point: Obesity (BMI >25), Varicose veins Each Risk Factor Represents 3 Points: Age 75 years or older Thrombosis Risk Factor Assessment Total Risk Factor Score: 5 Thrombosis Risk Factor Assessment Level: High Risk Assessment and Plan Assessment: Abdominal pain, etiology unclear Possible acute UTI Diabetes mellitus Hypertension Anxiety Depression Plan: Continue current medication regime ,monitoring and symptomatic treatments. Diet converted to NPO. Surgery consulted. Gentle IV fluid hydration ordered. Home meds reviewed and resumed accordingly. GI and DVT prophylaxis in place. The impression and plan of care has been dictated as directed. : I performed a history and examination of this patient, discussed the same with the dictator. I agree with the dictator's note ,documented as a scribe. Any additional findings or plans will be noted.
[2019-02-28 17:03] LABS: Glucose,Whole Blood 79 mg/dL (75-99)
[2019-02-28] MEDS: KETOROLAC 30 MG/ML 1 ML VIAL IVP PRN (20:42)
[2019-02-28] MEDS: CITALOPRAM HYDROBROMIDE 10 MG TAB PO SCH (20:43)
[2019-02-28 21:14] LABS: Glucose,Whole Blood 92 mg/dL (75-99)
[2019-02-28] MEDS: INSULIN DETEMIR (LEVEMIR) 100 UNIT/ML SYR SQ SCH (21:32)
[2019-03-01 02:07] LABS: Glucose,Whole Blood 114 mg/dL (75-99)
[2019-03-01] MEDS: SODIUM CHLORIDE 0.9% 1,000 ML IV SCH ×2 (03:28→08:17)
[2019-03-01 07:05] LABS: Glucose,Whole Blood 130 mg/dL (75-99)
[2019-03-01] MEDS: INSULIN ASPART (NovoLOG) 100 UNIT/ML VIAL SQ SCH ×4 (07:13→21:49)
[2019-03-01] MEDS: LOSARTAN 25 MG TAB PO SCH ×2 (08:17→20:28)
[2019-03-01] MEDS: PANTOPRAZOLE 40 MG TABLET PO SCH (08:17)
[2019-03-01] MEDS: CEFDINIR 300 MG CAP PO SCH ×2 (08:17→20:28)
[2019-03-01] MEDS: buPROPion 75 MG TAB PO SCH (08:17)
[2019-03-01] MEDS: KETOROLAC 30 MG/ML 1 ML VIAL IVP PRN ×3 (08:26→20:31)
[2019-03-01 12:05] LABS: Glucose,Whole Blood 187 mg/dL (75-99)
[2019-03-01 12:34] LABS: Basophils # (A) 0.1 k/uL (0-0.2); Basophils % (A) 2 %; Eosinophils # (A) 0.2 k/uL (0-0.7); Eosinophils % (A) 3 %; HCT 40.7 % (34.0-46.0); Lymphocytes # (A) 1.2 k/uL (1.0-4.8); Lymphocytes % (A) 20 %; MCH 29.7 pg (25.0-35.0); MCV 92.7 fL (80.0-100.0); Monocytes # (A) 0.4 k/uL (0-1.0); Monocytes % (A) 6 %; Neutrophils # (A) 4.1 k/uL (1.3-7.7); Neutrophils % (A) 67 %; Platelet Count 227 k/uL (150-450); RBC 4.38 m/uL (3.80-5.40); RDW 13.5 % (11.5-15.5); WBC 6.2 k/uL (3.8-10.6)
[2019-03-01 12:50] LABS: Albumin 3.6 g/dL (3.5-5.0); Calcium 8.8 mg/dL (8.4-10.2); Potassium 4.8 mmol/L (3.5-5.1); Total Bilirubin 0.6 mg/dL (0.2-1.3); Total Protein 6.7 g/dL (6.3-8.2)
--- NOTE | 2019-03-01 13:58 | P.GSCN ---
History of Present Illness Consult date: 02/28/19 Reason for Consult: abdominal pain Requesting physician: Donna Amezcua History of present illness: CHIEF COMPLAINT: Abdominal pain HISTORY OF PRESENT ILLNESS: 78 year old female who is admitted to the hospital due to abdominal pain. General surgery was consulted for further evaluation. Patient was recently admitted to the hospital for constipation. PAST MEDICAL HISTORY: See list. PAST SURGICAL HISTORY: See list. SOCIAL HISTORY: No illicit drug use. REVIEW OF SYSTEMS: CONSTITUTIONAL: Denies fever or chills. HEENT: Denies blurred vision, vision changes, or eye pain. Denies hemoptysis CARDIOVASCULAR: Denies chest pain or pressure. RESPIRATORY: No shortness of breath. GASTROINTESTINAL: Refer to [facility] for pertinent findings HEMATOLOGIC: Denies bleeding disorders. GENITOURINARY: Denies any blood in urine. SKIN: Denies pruitis. Denies rash. PHYSICAL EXAM: VITAL SIGNS: Reviewed. GENERAL: Well-developed in no acute distress. HEENT: No sclera icterus. Extraocular movements grossly intact. Moist buccal mucosa. Head is atraumatic, normocephalic. ABDOMEN: Soft. Nondistended. tenderness with palpation. NEUROLOGIC: Alert and oriented. Cranial nerves II through XII grossly intact. LABORATORY DATA: WBC 7.4. Hemoglobin 13.4. Platelet count 298. Potassium 4.6. BUN 16. Lactic acid 1.8. IMAGIN. KUB x-ray negative for acute process 2. CT abdomen and pelvis performed on 02/23/2019: no mesenteric edema. No ascites or free air. No sign of a bowel obstruction. No signs of a thickened appendix. 3. Ultrasound gallbladder 02/24/2019: No gallstones or dilated ducts. No free fluid. No focal liver defect. ASSESSMENT: 1. Abdominal pain 2. Recent hospitalization for constipation PLAN: Case discussed with Dr. Aleman. He will evaluate patient this afternoon and make further recommendations Nurse practitioner note has been reviewed by physician. Signing provider agrees with the documented findings, assessment, and plan of care. Past Medical History Past Medical History: Chest Pain / Angina, Diabetes Mellitus, Hypertension, Osteoarthritis (OA) Additional Past Medical History / Comment(s): VARICOSE VEINS, BACK PAIN, SEPSIS, PULMONARY FIBROSIS History of Any Multi-Drug Resistant Organisms: None Reported Past Surgical History: Hysterectomy, Joint Replacement Additional Past Surgical History / Comment(s): ELIJAH TOTAL KNEES, LEFT THUMB ligament repair, LOOP RECORDER removed, left shoulder replacement Past Anesthesia/Blood Transfusion Reactions: No Reported Reaction Type of Cardiac Device: Loop Device Placement Date:: 2014 Past Psychological History: Anxiety, Depression Smoking Status: Never smoker Past Alcohol Use History: None Reported Past Drug Use History: None Reported - Past Family History Sister(s) Family Medical History: Cancer Additional Family Medical History / Comment(s): SISTER #1 LEUKEMIA. SISTER #2 STOMACH [place] Medications and Allergies Home Medications Medication Instructions Recorded Confirmed Type Losartan [Cozaar] 25 mg PO BID 01/02/16 02/27/19 History Insulin Aspart [NovoLOG Flexpen] See Protocol SQ AC-TID 12/31/18 02/27/19 History Cefuroxime Axetil [Ceftin] 500 mg PO BID #14 tab 02/24/19 02/27/19 Rx Citalopram Hydrobromide 10 mg PO HS 02/24/19 02/27/19 History [Citalopram HBr] Docusate [Colace] 100 mg PO BID #30 cap 02/24/19 02/27/19 Rx Insulin Glargine,Hum.rec.anlog 30 - 40 unit SQ HS 02/24/19 02/27/19 History [Basaglar Kwikpen U-100] Pantoprazole Sodium [Protonix] 40 mg PO DAILY #15 tablet.dr 02/24/19 02/27/19 Rx Sennosides-Docusate Sodium 2 tab PO HS #60 tablet 02/24/19 02/27/19 Rx [Senokot-S] buPROPion [Wellbutrin] 75 mg PO QAM 02/24/19 02/27/19 History traMADol HCL 50 mg PO TID PRN 02/27/19 02/27/19 History Allergies Allergy/AdvReac Type Severity Reaction Status Date / Time latex Allergy Unknown Rash/Hives Verified 02/27/19 16:36 Surgical - Exam Vital Signs Temp Pulse Resp BP Pulse Ox 98.3 F 75 18 152/77 98 02/27/19 10:13 02/27/19 10:13 02/27/19 10:13 02/27/19 10:13 02/27/19 10:13 Results - Labs 03/01/19 12:08 03/01/19 12:08 Abnormal Lab Results - Last 24 Hours (Table) 02/27/19 02/28/19 02/28/19 Range/Units 21:39 07:03 11:57 POC Glucose (mg/dL) 116 H 145 H 192 H (75-99) mg/dL Microbiology - Last 24 Hours (Table) 02/27/19 10:58 Urine Culture - Preliminary Urine,Voided
--- NOTE | 2019-03-01 13:59 | P.PN ---
Subjective Progress Note Date: 03/01/19 CHIEF COMPLAINT: Abdominal pain HISTORY OF PRESENT ILLNESS: patient examined this morning at the bedside with Dr. Aleman. Patient continues to report severe right-sided abdominal pain. She denies nausea or vomiting. Vital signs are stable. PHYSICAL EXAM: VITAL SIGNS: Reviewed. GENERAL: Well-developed in no acute distress. HEENT: No sclera icterus. Extraocular movements grossly intact. Moist buccal mucosa. Head is atraumatic, normocephalic. ABDOMEN: Soft. Nondistended. tenderness with palpation. NEUROLOGIC: Alert and oriented. Cranial nerves II through XII grossly intact. ASSESSMENT: 1. Abdominal pain 2. Recent hospitalization for constipation PLAN: Obtain CT abdomen pelvis with oral contrast HIDA scan Further recommendations pending Nurse practitioner note has been reviewed by physician. Signing provider agrees with the documented findings, assessment, and plan of care. Objective - Vital Signs Vital signs: Vital Signs Temp 98.0 F 03/01/19 06:13 Pulse 61 03/01/19 06:13 Resp 20 03/01/19 06:13 BP 187/87 03/01/19 07:17 Pulse Ox 99 03/01/19 06:13 Intake & Output 02/28/19 03/01/19 03/01/19 18:59 06:59 18:59 Intake Total 600 600 Balance 600 600 Intake: IV 600 600 Sodium Chloride 0.9% 1, 600 600 000 ml @ 75 mls/hr IV . [id number] [facility] Rx#:[id number] Other: Voiding Method Toilet # Voids 2 - Labs CBC & Chem 7: 03/01/19 12:08 03/01/19 12:08 Labs: Abnormal Lab Results - Last 24 Hours (Table) 03/01/19 03/01/19 03/01/19 Range/Units 02:06 07:04 12:03 Sodium (137-145) mmol/L Glucose (74-99) mg/dL POC Glucose (mg/dL) 114 H 130 H 187 H (75-99) mg/dL 03/01/19 Range/Units 12:08 Sodium 135 L (137-145) mmol/L Glucose 194 H (74-99) mg/dL POC Glucose (mg/dL) (75-99) mg/dL Microbiology - Last 24 Hours (Table) 02/27/19 10:58 Urine Culture - Final Urine,Voided
--- NOTE | 2019-03-01 15:09 | NM ---
EXAMINATION TYPE: NM hepatobiliary w CCK DATE OF EXAM: 03/01/2019 COMPARISON: Gallbladder ultrasound dated 02/24/2019 HISTORY: Abdominal pain TECHNIQUE: After the intravenous administration of 4.4 mCi Tc 99m Mebrofenin hepatobiliary scintigrap hy is performed. Immediate images post injection. FINDINGS: There is satisfactory initial accumulation of tracer by the liver. The gallbladder is visualized wit hin 10 minutes. The small bowel activity is noted within 58 minutes. At one hour CCK was administer ed, patient was injected with 1.5 mcg of Kinevac, and gallbladder ejection fraction is calculated at 15 %, abnormally. Therefore there is no scintigraphic evidence of cystic or common bile duct obstruc tion to suggest acute cholecystitis or gallbladder dyskinesia. IMPRESSION: Biliary dyskinesia with abnormally low ejection fraction of the gallbladder at 15%. No sc intigraphic evidence of acute or chronic cholecystitis.
[2019-03-01] MEDS: IOPAMIDOL CONTRAST (ORAL USE) VIAL PO PRN ×2 (15:21→16:21)
[2019-03-01 17:02] LABS: Glucose,Whole Blood 212 mg/dL (75-99)
--- NOTE | 2019-03-01 17:48 | CT ---
EXAMINATION TYPE: CT abdomen pelvis w con DATE OF EXAM: 03/01/2019 COMPARISON: 02/23/2019 HISTORY: Abdominal pain. CT DLP: 875.4 mGycm Automated exposure control for dose reduction was used. CONTRAST: Performed with IV Contrast, patient injected with 80ml mL of Isovue 300. There is oral contrast also. There is some patchy scarring and atelectasis at the lung bases. There is no pleural effusion. Stomac h is intact. There is small hiatal hernia. Spleen is intact. There is no pancreatic mass. Gallbladder appears normal. Bile ducts are not dilated. Liver shows 1 cm granuloma in the superior right lobe. T here is 3 mm granuloma medial right lobe. The bile ducts are not dilated. There is no adrenal mass. Kidneys show satisfactory contrast opacific ation. There is no hydronephrosis. Ureters are not dilated. Abdominal aorta is atheromatous. There is no retroperitoneal adenopathy. Bladder distends smoothly. There is no free fluid in the pelvis. Ther e is no inguinal hernia. There is no mesenteric edema. There is no ascites or free air. There is small umbilical hernia. There are spondylotic changes in the lumbar spine. Bony pelvis is intact. There is no evidence of thickene d appendix. There is mild spurring at the hip joints. There is L3 vertebral body hemangioma. There is T11 vertebral body hemangioma. IMPRESSION: There are some fibrotic changes and subsegmental atelectasis at the lung bases similar to old exam. Atherosclerotic vascular disease. No acute abnormality within the abdomen pelvis. I do not see a caus e for abdominal pain.
--- NOTE | 2019-03-01 18:07 | P.PN ---
Subjective Progress Note Date: 03/01/19 This is 78-year-old female history of diabetes mellitus, hypertension, anxiety, depression and multiple other medical issues recently discharged on 02/25/2019 with right-sided abdominal and flank pain secondary to constipation and possible acute UTI. Abdomen/pelvis CT on that admission reported no acute abnormality, stool burden. Received IV antibiotics, responded well to cathartics with resolution of abdominal pain after having bowel movement and patient was discharged home. Patient returned to the ER on Thursday, stating she had bowel movements on Thursday, Thursday and none on Thursday, with right lower quadrant abdominal pain reoccurring. Reports small bowel movement this morning. States right lower quadrant pain to be continuous, unable to lay on her right side ,no rebound. No nausea, no emesis. KUB reporting no acute intra-abdominal abnormality. CBC, CMP unremarkable, blood sugars controlled, UA 03/01/2019 NPO,maintained on gentle IV fluid hydration. Severe right lower quadrant pain now radiating to left quadrant with hypoactive bowel sounds. Reports no bowel movement, not passing flatus. Denies nausea or vomiting. Denies chest pain, palpitations or shortness of breath. Afebrile normal WBC, unremarkable CMP. Urine culture negative. Surgical consult in place, recommendations pending. Objective - Vital Signs Vital signs: Vital Signs Temp 98.0 F 03/01/19 06:13 Pulse 61 03/01/19 06:13 Resp 20 03/01/19 06:13 BP 187/87 03/01/19 07:17 Pulse Ox 99 03/01/19 06:13 Intake & Output 02/28/19 03/01/19 03/01/19 18:59 06:59 18:59 Intake Total 600 Balance 600 Intake: IV 600 Sodium Chloride 0.9% 1, 600 000 ml @ 75 mls/hr IV . [id number] [facility] Rx#:[id number] Other: Voiding Method Toilet # Voids 2 - Exam VITAL SIGNS: As above GENERAL: Sitting up in bed, no acute distress HEENT: Conjunctivae normal. eyes normal. NECK: No JVD. No thyroid enlargement. No LNs CARDIOVASCULAR: S1, S2 regular.. No murmur RESPIRATION: Breath sounds diminished in the bases. No rhonchi or crackles. No bronchial breathing. ABDOMEN: Soft, nondistended, right lower quadrant tender .No rebound, no guarding. no masses palpable. No ascites, No hepatosplenomegaly.hypoactive Bowel sounds heard. LEGS: No edema. no swelling PSYCHIATRY: Alert and oriented X3, mood and affect normal. NERVOUS SYSTEM: Cranial N 2-12 grossly normal. Moves all 4 limbs. Diffuse weakness No focal deficits. Strength and sensation grossly intact.. Skin: no rash - Labs CBC & Chem 7: 03/01/19 12:08 03/01/19 12:08 Labs: Abnormal Lab Results - Last 24 Hours (Table) 02/28/19 03/01/19 03/01/19 Range/Units 11:57 02:06 07:04 POC Glucose (mg/dL) 192 H 114 H 130 H (75-99) mg/dL Microbiology - Last 24 Hours (Table) 02/27/19 10:58 Urine Culture - Final Urine,Voided Assessment and Plan Assessment: Abdominal pain, etiology unclear Possible acute UTI Diabetes mellitus Hypertension Anxiety Depression Plan: Continue current medication regime ,monitoring and symptomatic treatments. Diet converted to NPO. Maintain Gentle IV fluid hydration. Evaluated by surgery, CT of abdomen and pelvis, HIDA scan ordered. The impression and plan of care has been dictated as directed. : I performed a history and examination of this patient, discussed the same with the dictator. I agree with the dictator's note ,documented as a scribe. Any additional findings or plans will be noted.
[2019-03-01] MEDS: amLODIPine 2.5 MG TAB PO SCH (18:14)
[2019-03-01] MEDS: CITALOPRAM HYDROBROMIDE 10 MG TAB PO SCH (20:28)
[2019-03-01] MEDS: traMADol 50 MG TAB PO PRN (20:31)
[2019-03-01 20:43] LABS: Glucose,Whole Blood 114 mg/dL (75-99)
[2019-03-01] MEDS: INSULIN DETEMIR (LEVEMIR) 100 UNIT/ML SYR SQ SCH (21:49)
[2019-03-02 04:58] LABS: Glucose,Whole Blood 140 mg/dL (75-99)
[2019-03-02] MEDS: KETOROLAC 30 MG/ML 1 ML VIAL IVP PRN ×2 (06:02→21:08)
[2019-03-02] MEDS: SODIUM CHLORIDE 0.9% 1,000 ML IV SCH ×2 (06:04→15:28)
[2019-03-02 07:13] LABS: Glucose,Whole Blood 173 mg/dL (75-99)
[2019-03-02 07:38] LABS: Basophils # (A) 0.1 k/uL (0-0.2); Basophils % (A) 1 %; Eosinophils # (A) 0.3 k/uL (0-0.7); Eosinophils % (A) 4 %; HCT 40.7 % (34.0-46.0); HGB 13.6 gm/dL (11.4-16.0); Lymphocytes # (A) 2.1 k/uL (1.0-4.8); Lymphocytes % (A) 23 %; MCH 30.5 pg (25.0-35.0); MCHC 33.4 g/dL (31.0-37.0); MCV 91.2 fL (80.0-100.0); Mean Platelet Volume 7.1; Monocytes # (A) 0.5 k/uL (0-1.0); Monocytes % (A) 5 %; Neutrophils # (A) 5.8 k/uL (1.3-7.7); Neutrophils % (A) 65 %; Platelet Count 324 k/uL (150-450); RBC 4.46 m/uL (3.80-5.40); RDW 13.5 % (11.5-15.5)
[2019-03-02] MEDS ORDERED: HYDROmorphone 0.5 MG/0.5 ML SYRINGE IVP PRN (07:47)
[2019-03-02] MEDS: PANTOPRAZOLE 40 MG TABLET PO SCH (07:49)
[2019-03-02] MEDS: buPROPion 75 MG TAB PO SCH (07:50)
[2019-03-02] MEDS: LOSARTAN 25 MG TAB PO SCH ×2 (07:50→21:05)
[2019-03-02] MEDS: amLODIPine 2.5 MG TAB PO SCH (07:50)
[2019-03-02] MEDS: CEFDINIR 300 MG CAP PO SCH ×2 (07:50→21:05)
[2019-03-02] MEDS: INSULIN ASPART (NovoLOG) 100 UNIT/ML VIAL SQ SCH ×4 (07:51→21:05)
[2019-03-02 08:00] LABS: Calcium 9.3 mg/dL (8.4-10.2); Potassium 4.6 mmol/L (3.5-5.1)
[2019-03-02 11:14] LABS: Glucose,Whole Blood 159 mg/dL (75-99)
[2019-03-02] MEDS ORDERED: IV FLUID CONTINUATION 1,000 ML IV ONE (11:37)
[2019-03-02] MEDS ORDERED: ONDANSETRON 4 MG/2 ML VIAL IVP ONE (11:51)
[2019-03-02] MEDS ORDERED: DEXAMETHASONE SOD PHOSPHATE 10 MG/ML 1 ML VIAL IV ONE (11:54)
[2019-03-02 12:01] LABS: Glucose,Whole Blood 137 mg/dL (75-99)
[2019-03-02] MEDS ORDERED: LABETALOL 5 MG/ML VIAL MDV ONE (12:50)
[2019-03-02] MEDS ORDERED: SUCCINYLCHOLINE CHLORIDE 100 MG/5 ML SYR IV ONE (12:50)
[2019-03-02] MEDS ORDERED: GLYCOPYRROLATE 0.2 MG/ML 2 ML VIAL ONE (12:50)
[2019-03-02] MEDS ORDERED: LIDOCAINE 1% INJ 10MG/ML (20 ML MDV) ONE (12:50)
[2019-03-02] MEDS ORDERED: NEOSTIGMINE 1 MG/ML 10 ML VIAL ONE (12:50)
[2019-03-02] MEDS ORDERED: ROCURONIUM BROMIDE 10 MG/ML 10 ML VIAL IV ONE (12:50)
[2019-03-02] MEDS ORDERED: ePHEDrine SULFATE/0.9% NACL/PF 50 MG/5 ML SYRINGE IV ONE (12:50)
[2019-03-02] MEDS ORDERED: MIDAZOLAM 2 MG/2 ML VIAL ONE (12:50)
[2019-03-02] MEDS ORDERED: fentaNYL (PF) 50 MCG/ML 2 ML AMP ONE (12:50)
[2019-03-02] MEDS ORDERED: PROPOFOL 10 MG/ML 20 ML VIAL IV ONE (12:50)
[2019-03-02] MEDS: LACTATED RINGERS 1,000 ML IV SCH (12:53)
[2019-03-02] MEDS ORDERED: SODIUM CHLORIDE 0.9% 50 ML with ceFAZolin 2,000 MG IV ONE ×2 (13:18)
[2019-03-02] MEDS ORDERED: BUPIVACAIN-EPI 0.25%-1:200,000 30 ML VIAL SQ ONE (13:23)
--- NOTE | 2019-03-02 13:37 | P.OP ---
Date of Procedure: 03/02/19 Preoperative Diagnosis: Cholecystitis Postoperative Diagnosis: Cholecystitis Procedure(s) Performed: Laparoscopic cholecystectomy Anesthesia: CHRISTO Surgeon: Yariel Aleman Estimated Blood Loss (ml): 5 Pathology: other (Gallbladder) Condition: stable Disposition: PACU Description of Procedure: The patient was placed on the operating table. The patient received a general endotracheal tube anesthesia. The patients abdomen was prepped and draped in the usual sterile fashion. Through an infraumbilical stab incision, the fascia of the anterior abdominal wall was grasped with a pair of Kochers and then the Veress needle was placed in the peritoneal cavity. Position of the Veress needle was confirmed with positive drop test. The abdomen was then insufflated. After adequate insufflation, the 10 mm trocar was placed in the peritoneal cavity. Following this the laparoscope was placed in the peritoneal cavity. The patient was placed in the head-up, right side up position and then a 5 mm trocar was placed in the right lateral and right subcostal position under direct visualization. A 8 mm trocar was placed in the epigastric position. The gallbladder was grasped in the fundus and infundibulum. Traction on the gallbladder was placed in the lateral and the cephalad positions. The triangle of Calot was visualized.. The cystic duct was bluntly dissected until the union of the cystic duct and common bile duct was seen. A critical view of safety was achieved. The cystic duct was then divided and sealed with the Harmonic scissors. A PDS Endoloop was then placed throughout the cystic duct stump. The cystic artery divided and sealed with the Harmonic scissors. The gallbladder was then removed from the liver bed using Harmonic scissors. The gallbladder was then extracted through the epigastric port site. Operative field was checked for any bleeding spots and Harmonic scissors was used to coagulate the liver bed. The abdomen was irrigated. The trocars were removed. The skin was closed using interrupted 3-0 Vicryl suture. Dermabond dressing were applied. The patient tolerated the procedure well.
[2019-03-02 13:56] LABS: Glucose,Whole Blood 179 mg/dL (75-99)
--- NOTE | 2019-03-02 15:03 | P.PN ---
Subjective Progress Note Date: 03/02/19 This is 78-year-old female history of diabetes mellitus, hypertension, anxiety, depression and multiple other medical issues recently discharged on 02/25/2019 with right-sided abdominal and flank pain secondary to constipation and possible acute UTI. Abdomen/pelvis CT on that admission reported no acute abnormality, stool burden. Received IV antibiotics, responded well to cathartics with resolution of abdominal pain after having bowel movement and patient was discharged home. Patient returned to the ER on Thursday, stating she had bowel movements on Thursday, Thursday and none on Thursday, with right lower quadrant abdominal pain reoccurring. Reports small bowel movement this morning. States right lower quadrant pain to be continuous, unable to lay on her right side ,no rebound. No nausea, no emesis. KUB reporting no acute intra-abdominal abnormality. CBC, CMP unremarkable, blood sugars controlled, UA 03/01/2019 NPO,maintained on gentle IV fluid hydration. Severe right lower quadrant pain now radiating to left quadrant with hypoactive bowel sounds. Reports no bowel movement, not passing flatus. Denies nausea or vomiting. Denies chest pain, palpitations or shortness of breath. Afebrile normal WBC, unremarkable CMP. Urine culture negative. Surgical consult in place, recommendations pending. 03/02/2019 abdomen/pelvis CT reported no acute abnormality .evaluated by surgery, hepatobiliary scan reporting biliary dyskinesia with low EF of 15%. Scheduled for cholecystectomy today. significant improvement in pain, pain only to palpitation of right lower quadrant and mid epigastric. Nice chest pain, palpitations or shortness of breath. Objective - Vital Signs Vital signs: Vital Signs Temp 98.0 F 03/02/19 04:55 Pulse 63 03/02/19 04:55 Resp 22 03/02/19 08:00 BP 147/91 03/02/19 04:55 Pulse Ox 97 03/02/19 04:55 Intake & Output 03/01/19 03/02/19 03/02/19 18:59 06:59 18:59 Intake Total 600 Balance 600 Intake: IV 600 Sodium Chloride 0.9% 1, 600 000 ml @ 75 mls/hr IV . [id number] COUNTS INCLUDE 234 BEDS AT THE [facility] Rx#:[id number] Other: Voiding Method Toilet Toilet # Voids 1 - Exam VITAL SIGNS: As above GENERAL: Sitting up in bed, no acute distress HEENT: Conjunctivae normal. eyes normal. NECK: No JVD. No thyroid enlargement. No LNs CARDIOVASCULAR: S1, S2 regular.. No murmur RESPIRATION: Breath sounds diminished in the bases. No rhonchi or crackles. No bronchial breathing. ABDOMEN: Soft, nondistended, right lower quadrant and mid epigastric tenderness to palpation .No rebound, no guarding. no masses palpable. No ascites, No hepatosplenomegaly.hypoactive Bowel sounds heard. LEGS: No edema. no swelling PSYCHIATRY: Alert and oriented X3, mood and affect normal. NERVOUS SYSTEM: Cranial N 2-12 grossly normal. Moves all 4 limbs. Diffuse weakness No focal deficits. Strength and sensation grossly intact.. Skin: no rash - Labs CBC & Chem 7: 03/02/19 07:16 03/02/19 07:16 Labs: Abnormal Lab Results - Last 24 Hours (Table) 03/01/19 03/01/19 03/01/19 Range/Units 12:03 12:08 17:00 Sodium 135 L (137-145) mmol/L Carbon Dioxide (22-30) mmol/L Glucose 194 H (74-99) mg/dL POC Glucose (mg/dL) 187 H 212 H (75-99) mg/dL 03/01/19 03/02/19 03/02/19 Range/Units 20:41 04:57 07:11 Sodium (137-145) mmol/L Carbon Dioxide (22-30) mmol/L Glucose (74-99) mg/dL POC Glucose (mg/dL) 114 H 140 H 173 H (75-99) mg/dL 03/02/19 03/02/19 Range/Units 07:16 11:12 Sodium (137-145) mmol/L Carbon Dioxide 21 L (22-30) mmol/L Glucose 174 H (74-99) mg/dL POC Glucose (mg/dL) 159 H (75-99) mg/dL Assessment and Plan Assessment: Abdominal pain, biliary dyskinesia with low EF 15%, cholecystectomy pending Possible acute UTI Diabetes mellitus Hypertension Anxiety Depression Plan: Continue current medication regime ,monitoring and symptomatic treatments. Continues on IV fluid hydration. NPO. Scheduled for cholecystectomy today. The impression and plan of care has been dictated as directed. : I performed a history and examination of this patient, discussed the same with the dictator. I agree with the dictator's note ,documented as a scribe. Any additional findings or plans will be noted.
[2019-03-02] MEDS: traMADol 50 MG TAB PO PRN (16:56)
[2019-03-02 17:01] LABS: Glucose,Whole Blood 292 mg/dL (75-99)
[2019-03-02 20:39] LABS: Glucose,Whole Blood 235 mg/dL (75-99)
[2019-03-02] MEDS: INSULIN DETEMIR (LEVEMIR) 100 UNIT/ML SYR SQ SCH (21:05)
[2019-03-02] MEDS: CITALOPRAM HYDROBROMIDE 10 MG TAB PO SCH (21:05)
[2019-03-03] MEDS: SODIUM CHLORIDE 0.9% 1,000 ML IV SCH (03:28)
[2019-03-03 07:09] LABS: Glucose,Whole Blood 240 mg/dL (75-99)
[2019-03-03] MEDS: CEFDINIR 300 MG CAP PO SCH (08:27)
[2019-03-03] MEDS: LACTATED RINGERS 1,000 ML IV SCH (08:28)
[2019-03-03] MEDS: INSULIN ASPART (NovoLOG) 100 UNIT/ML VIAL SQ SCH ×2 (08:28→13:05)
[2019-03-03] MEDS: PANTOPRAZOLE 40 MG TABLET PO SCH (08:28)
[2019-03-03] MEDS: amLODIPine 2.5 MG TAB PO SCH (08:28)
[2019-03-03] MEDS: LOSARTAN 25 MG TAB PO SCH (08:28)
[2019-03-03] MEDS: buPROPion 75 MG TAB PO SCH (08:28)
--- NOTE | 2019-03-03 08:41 | P.DS ---
Providers Date of admission: 03/01/19 11:03 Expected date of discharge: 03/03/19 Attending physician: Jon Polo Consults: 02/28/19 09:38 Consult Physician Routine Consulting Provider: Yariel Aleman Consult Reason/Comments: RLQ abd Pain Do you want consulting provider notified?: Yes Primary care physician: Jon Polo Hospital Course: Final Diagnoses: Abdominal pain, biliary dyskinesia with low EF 15%, S/P Lap. cholecystectomy acute UTI ruled out, cx negative Diabetes mellitus Hypertension Anxiety Depression Hospital COurse:This is 78-year-old female history of diabetes mellitus, hypertension, anxiety, depression and multiple other medical issues recently discharged on 02/25/2019 with right-sided abdominal and flank pain secondary to constipation and possible acute UTI. Abdomen/pelvis CT on that admission reported no acute abnormality, stool burden. Received IV antibiotics, responded well to cathartics with resolution of abdominal pain after having bowel movement and patient was discharged home. Patient returned to the ER on Thursday, stating she had bowel movements on Thursday, Thursday and none on Thursday, with right lower quadrant abdominal pain reoccurring. Reports small bowel movement this morning. States right lower quadrant pain to be continuous, unable to lay on her right side ,no rebound. No nausea, no emesis. KUB reporting no acute intra-abdominal abnormality. CBC, CMP unremarkable, blood sugars controlled, UA 03/01/2019 NPO,maintained on gentle IV fluid hydration. Severe right lower quadrant pain now radiating to left quadrant with hypoactive bowel sounds. Reports no bowel movement, not passing flatus. Denies nausea or vomiting. Denies chest pain, palpitations or shortness of breath. Afebrile normal WBC, unremarkable CMP. Urine culture negative. Surgical consult in place, recommendations pending. 03/02/2019 abdomen/pelvis CT reported no acute abnormality .evaluated by surgery, hepatobiliary scan reporting biliary dyskinesia with low EF of 15%. Scheduled for cholecystectomy today. significant improvement in pain, pain only to palpitation of right lower quadrant and mid epigastric. Nice chest pain, palpitations or shortness of breath. S/P Lap. cholecystectomy, tolerated procedure well. SIgnificant clinical improvement. Patient will be discharged home in a stable condition with guarded prognosis, pending surgery clearance. - Exam GENERAL: Alert and oriented X 3, no acute distress CARDIOVASCULAR: S1, S2 regular..No murmur RESPIRATION: Breath sounds diminished in the bases. ABDOMEN: Soft, nondistended, s/p surgery. Laproscopic sites clean, dry, well approximated. Bowel sounds heard. NERVOUS SYSTEM: No focal deficits. The impression and plan of care has been dictated as directed. : I performed a history and examination of this patient, discussed the same with the dictator. I agree with the dictator's note ,documented as a scribe. Any additional findings or plans will be noted. Patient Condition at Discharge: Stable Plan - Discharge Summary New Discharge Prescriptions: New amLODIPine [Norvasc] 2.5 mg PO DAILY #30 tab Continue Losartan [Cozaar] 25 mg PO BID Insulin Aspart [NovoLOG Flexpen] See Protocol SQ AC-TID buPROPion [Wellbutrin] 75 mg PO QAM Insulin Glargine,Hum.rec.anlog [Basaglar Kwikpen U-100] 30 - 40 unit SQ HS Citalopram Hydrobromide [Citalopram HBr] 10 mg PO HS Cefuroxime Axetil [Ceftin] 500 mg PO BID #14 tab Docusate [Colace] 100 mg PO BID #30 cap Sennosides-Docusate Sodium [Senokot-S] 2 tab PO HS #60 tablet Pantoprazole Sodium [Protonix] 40 mg PO DAILY #15 tablet. traMADol HCL 50 mg PO TID PRN PRN Reason: Pain Discharge Medication List Losartan [Cozaar] 25 mg PO BID 01/02/16 [History] Insulin Aspart [NovoLOG Flexpen] See Protocol SQ AC-TID 12/31/18 [History] Cefuroxime Axetil [Ceftin] 500 mg PO BID #14 tab 02/24/19 [Rx] Citalopram Hydrobromide [Citalopram HBr] 10 mg PO HS 02/24/19 [History] Docusate [Colace] 100 mg PO BID #30 cap 02/24/19 [Rx] Insulin Glargine,Hum.rec.anlog [Basaglar Kwikpen U-100] 30 - 40 unit SQ HS 02/24/19 [History] Pantoprazole Sodium [Protonix] 40 mg PO DAILY #15 tablet. 02/24/19 [Rx] Sennosides-Docusate Sodium [Senokot-S] 2 tab PO HS #60 tablet 02/24/19 [Rx] buPROPion [Wellbutrin] 75 mg PO QAM 02/24/19 [History] traMADol HCL 50 mg PO TID PRN 02/27/19 [History] amLODIPine [Norvasc] 2.5 mg PO DAILY #30 tab 03/03/19 [Rx] Follow up Appointment(s)/Referral(s): Jon Polo DO [Primary Care Provider] - 1 Week Patient Instructions/Handouts: Abdominal Pain (ED) Activity/Diet/Wound Care/Special Instructions: Confirm surgery F/U apt. prior to dc. Please use medication as discussed. Please follow up with family doctor if symptoms have not improved over the next two days. Please return to the emergency room if your symptoms increase or worsen or for any other concerns.
[2019-03-03 11:57] LABS: Glucose,Whole Blood 158 mg/dL (75-99)
--- NOTE | 2019-03-03 12:45 | P.PN ---
Subjective Progress Note Date: 03/03/19 CHIEF COMPLAINT: Abdominal pain HISTORY OF PRESENT ILLNESS: Patient is status post laparoscopic cholecystectomy. Patient examined this morning at the bedside with Dr. Aleman. Patient denies abdominal pain. She is tolerating diet. She denies nausea or vomiting. Vital signs are stable. PHYSICAL EXAM: VITAL SIGNS: Reviewed. GENERAL: Well-developed in no acute distress. HEENT: No sclera icterus. Extraocular movements grossly intact. Moist buccal mucosa. Head is atraumatic, normocephalic. ABDOMEN: Soft. Nondistended. Incisions clean dry and intact without drainage. NEUROLOGIC: Alert and oriented. Cranial nerves II through XII grossly intact. ASSESSMENT: 1. Abdominal pain 2. Recent hospitalization for constipation 3. Cholecystitis PLAN: Patient is stable for discharge home today. Continue tramadol for pain at the time of discharge. She is to follow up with Dr. Aleman outpatient. Nurse practitioner note has been reviewed by physician. Signing provider agrees with the documented findings, assessment, and plan of care. Objective - Vital Signs Vital signs: Vital Signs Temp 98 F 03/02/19 22:00 Pulse 66 03/03/19 05:36 Resp 20 03/03/19 08:00 BP 161/78 03/03/19 05:36 Pulse Ox 97 03/03/19 05:00 Intake & Output 03/02/19 03/03/19 03/03/19 18:59 06:59 18:59 Intake Total 950 100 Output Total 5 Balance 945 100 Intake: IV 950 Oral 100 Output: Estimated Blood Loss 5 Other: Voiding Method Toilet Toilet # Voids 3 2 - Labs CBC & Chem 7: 03/02/19 07:16 03/02/19 07:16 Labs: Abnormal Lab Results - Last 24 Hours (Table) 03/02/19 03/02/19 03/02/19 Range/Units 13:54 16:59 20:16 POC Glucose (mg/dL) 179 H 292 H 235 H (75-99) mg/dL 03/03/19 03/03/19 Range/Units 07:07 11:54 POC Glucose (mg/dL) 240 H 158 H (75-99) mg/dL
[2019-03-03 14:34] VITALS: BP 151/78; PULSE 65; RESP 16; TEMP 97.7
== END 2019-03-03 15:40 | disposition home or self-care (01) | DRG 419 ==
LOC: EC 10:09 → 6NMEDSUR 16:23 → OBSVTOIN 03-01 11:03
PROVIDERS: ADMIT Family Medicine; ATTEND Family Medicine
PROC: 0FT44ZZ Resection of Gallbladder, Percutaneous Endoscopic Approach (ICD-10-PCS; principal; 2019-03-02 08:00)
DX: K81.1 Chronic cholecystitis (principal); E11.9 Type 2 diabetes mellitus without complications; F32.9 Major depressive disorder, single episode, unspecified; F41.9 Anxiety disorder, unspecified; I10 Essential (primary) hypertension; J84.10 Pulmonary fibrosis, unspecified; K59.00 Constipation, unspecified; Z79.899 Other long term (current) drug therapy; Z80.0 Family history of malignant neoplasm of digestive organs; Z80.6 Family history of leukemia; Z90.710 Acquired absence of both cervix and uterus; Z96.612 Presence of left artificial shoulder joint; M19.90 Unspecified osteoarthritis, unspecified site; Z96.653 Presence of artificial knee joint, bilateral; Z91.040 Latex allergy status; K82.8 Other specified diseases of gallbladder
CPT/HCPCS: 36415; 74018; 74177; 78227; 80048; 80053; 81001; 82150; 83605; 83690; 85025; 85610; 85730; 87086; 88304; 96361; 96374; 96375; 99285

== ENCOUNTER → 2019-05-04 | Outpatient (CLI) | payer MEDICARE, BC ==
[2019-05-04 18:37] LABS: African American GFR (CKD) 45.2 (60.0-200.0); Albumin 4.1 g/dL (3.80-4.90); Albumin/Globulin Ratio 1.46 (1.60-3.17); Anion Gap 9.5 mmol/L (4.00-12.00); BUN/Creat Ratio 19.23 Ratio (12.00-20.00); Calcium 9.4 mg/dL (8.7-10.3); Carbon Dioxide 29.5 mmol/L (21.6-31.8); Chol/HDL Ratio 3.2; Globulin 2.8 g/dL (1.6-3.3); LDL Cholesterol,Calculated 93.2 mg/dL (0.0-131.0); Total Bilirubin 0.4 mg/dL (0.2-1.2); Total Protein 6.9 g/dL (6.2-8.2); VLDL Calculation 27.8 mg/dL (5.00-40.00)
[2019-05-04 21:12] LABS: Hemoglobin A1C 9.6 % (4.0-6.0)
== END | disposition home or self-care (01) ==
LOC: LABWHC1 13:46
PROVIDERS: ATTEND Internal Medicine Endocrinology, Diabetes & Metabolism
DX: E11.65 Type 2 diabetes mellitus with hyperglycemia (principal)
CPT/HCPCS: 36415; 80053; 80061; 83036; 84443

== ENCOUNTER → 2019-06-29 | Outpatient (CLI) | payer MEDICARE, BC ==
[~2019-06-29] MED LIST changes: +REGADENOSON 0.4 MG/5 ML SYRINGE IV ONE; -SODIUM CHLORIDE 0.9% 1,000 ML IV SCH; -ceFAZolin IN SWFI 2 GM/20 ML SYRINGE IVP ONE
--- NOTE | 2019-06-29 11:50 | NM ---
EXAMINATION TYPE: NM stress lexiscan cardiolite DATE OF EXAM: 06/29/2019 COMPARISON: NONE HISTORY: Precordial chest pain and abnormal EKG TECHNIQUE: After the intravenous administration of 9.6 mCi Tc 99m Sestamibi - Cardiolite resting SPE CT images acquired 60 minutes post injection. The patient received 0.4mg Lexiscan, 24.9 mCi Tc 99m Sestamibi - Stress images obtained [address] injection FINDINGS: Review of stress and rest SPECT images demonstrates vague decreased perfusion lateral wall near the b ase. Stress-induced ischemia is not excluded. Gated analysis shows normal wall motion with an estimat ed left ventricular ejection fraction of 64 %. IMPRESSION: Small vague area of stress-induced ischemia is difficult to exclude.
--- NOTE | 2019-06-29 13:37 | EST ---
EXERCISE STRESS AGE: 79 SEX: M HT: 5'2" WT: 165 lbs. PROTOCOL: Lexiscan STAGE: DURATION OF EXERCISE: HEART RATE REST: 65 BLOOD PRESSURE REST: 141/70 MAXIMUM HEART RATE ACHIEVED: 83 MAXIMUM BLOOD PRESSURE: 141/70 85% MPHR: 120 100% MPHR: 141 METS: INDICATIONS: Pulmonary Fibrosis. CLINICAL INFORMATION: Baseline EKG revealed normal sinus rhythm without significant ST-T changes. Patient was administered Lexiscan as per protocol. Heart rate changed from 65 to 83 beats per minute, blood pressure changed from 140/70 to 130/60. EKG remained unchanged. The patient had mild heaviness in the chest. By EKG criteria, this is an unremarkable Lexiscan stress test. The nuclear scan results which are more pertinent will be reported by the radiologist. MMHANNAHL / IJN: [id number] /
== END | disposition home or self-care (01) ==
LOC: RADNMMAIN 08:32
PROVIDERS: ATTEND Family Medicine
DX: J84.10 Pulmonary fibrosis, unspecified (principal)
CPT/HCPCS: 93017; 78452; A9500; J2785

== ENCOUNTER → 2019-11-02 | Outpatient (CLI) | payer MEDICARE, BC | END | disposition home or self-care (01) | LOC: CPPFTMAIN 11:55 | PROVIDERS: ATTEND Internal Medicine Critical Care Medicine | DX: J43.9 Emphysema, unspecified (principal); J45.909 Unspecified asthma, uncomplicated; R94.2 Abnormal results of pulmonary function studies | CPT/HCPCS: 94060; 94726; 94729 ==

== ENCOUNTER → 2020-02-21 | Outpatient (CLI) | payer MEDICARE, BC ==
--- NOTE | 2020-02-21 15:56 | CT ---
EXAMINATION TYPE: CT abdomen pelvis wo con DATE OF EXAM: 02/21/2020 COMPARISON: 03/01/2019 HISTORY: 79-year-old female K57.92, diverticulitis of intestine, LLQ pain CT DLP: 513.5 mGycm. Automated exposure control for dose reduction was used. TECHNIQUE: Contiguous axial scanning of the abdomen and pelvis without IV contrast. Coronal and sagit francoise reconstructions performed. FINDINGS: Heart upper limits of normal in size without pericardial effusion. Underlying coronary calcifications are demonstrated. Calcified granuloma inferior lingula. Some interstitial fibrosis and mild bronchio lectasis redemonstrated in the visualized lower lungs. No pleural effusion. Calcified granuloma within the mid hepatic dome and a couple additional tiny calcified granulomas in the liver. Gallbladder surgically absent. Small hiatal hernia. Small fatty umbilical hernia. Noncontrast appearance of the adrenal glands and pancreas show no gross abnormality. A few calcified granulomas within the spleen. No nephrolithiasis or hydronephrosis. Perinephric edema probably senescent change or could reflect un derlying chronic kidney disease. Moderate atherosclerotic calcifications infrarenal abdominal aorta. No dilated small bowel, free fluid, or free air. No mesenteric or retroperitoneal lymphadenopathy. Appendix not clearly visualized. No secondary findings of acute appendicitis in the right lower quadr ant. Mild stool burden. There may be mild circumferential wall thickening along the descending colon vers us nondistention. Mild circumferential bladder wall thickening. Minimal perivesicular fat stranding anteriorly, axial i mage 77 for example. Uterus surgically absent. Neither ovary is visualized. Multiple pelvic phlebolit hs. No abnormal fluid collection in the pelvis or pelvic lymphadenopathy. Bones: Osteitis pubis. Mild degenerative change at the hips. Moderate degenerative disc disease L2-L3 and mild additional levels. Hypertrophic facet arthropathy mid to lower lumbar spine. Fatty matrix h emangiomas within T11, T12, and L3 vertebral bodies. IMPRESSION: 1. Mild circumferential wall thickening along the descending colon could be secondary to nondistenti on. Correlate for nonspecific mild colitis. No significant diverticular change or evidence for acute diverticulitis. 2. Small hiatal hernia. Tiny fatty umbilical hernia. 3. Mild circumferential bladder wall thickening. Correlate to exclude cystitis. 4. Redemonstrated interstitial fibrosis at the lung bases.
== END | disposition home or self-care (01) ==
LOC: RADCTMAIN 13:24
PROVIDERS: ATTEND Family Medicine
DX: K63.89 Other specified diseases of intestine (principal); N32.89 Other specified disorders of bladder; K44.9 Diaphragmatic hernia without obstruction or gangrene; K42.9 Umbilical hernia without obstruction or gangrene
CPT/HCPCS: 74176

== ENCOUNTER → 2021-01-16 | Outpatient (CLI) | payer MEDICARE, BC ==
--- NOTE | 2021-01-16 17:58 | EST ---
EXERCISE STRESS AGE: 80 SEX: Fe HT: 5'2" WT: 177 lbs. PROTOCOL: Lexiscan STAGE: NA DURATION OF EXERCISE: 5 minutes HEART RATE REST: 66 BLOOD PRESSURE REST: 160/79 MAXIMUM HEART RATE ACHIEVED: 81 MAXIMUM BLOOD PRESSURE: 160/79 85% MPHR: 119 100% MPHR: 140 METS: NA INDICATIONS: Chest pain RESULTS: Baseline EKG revealed a normal sinus rhythm without significant ST changes. With Lexiscan administration, heart rate went up from 66 to 81 beats per minute. Blood pressure changed from 160/79 to 146/76. Patient had mild chest pressure. EKG remained unremarkable. By EKG criteria, this is an unremarkable Lexiscan stress test. The nuclear scan results which are more pertinent, will be reported by the radiologist. MMODL / IJN: [id number] /
--- NOTE | 2021-01-16 20:28 | NM ---
EXAMINATION TYPE: NM stress lexiscan cardiolite DATE OF EXAM: 01/16/2021 COMPARISON: NONE HISTORY: Chest pain TECHNIQUE: After the intravenous administration of 9.3 mCi Tc 99m Sestamibi - Cardiolite resting SPE CT images acquired 70 minutes post injection. At peak stress 25.3 mCi Tc 99m Sestamibi - Stress images obtained 35 minutes post injection The patient was stressed with 0.4mg Lexiscan. FINDINGS: No fixed defects are evident. Polar maps suggest some stress-induced ischemic change of the cardiac apex. This is not identified on the SPECT imaging. Small fixed defect near the cardiac base lateral wall, identified previously, khloe ears stable. There is some mild dyskinesia near the cardiac apex. Ejection fraction is calculated to be 84 %. IMPRESSION: 1. Suggestive of small reversible stress-induced ischemic change at the cardiac apex based on the teresa ar maps. This is not identified on SPECT imaging. Some dyskinesia does appear to be present at this l evel on wall motion. 2. Small fixed defect lateral wall near the base remain present from prior exam.
== END | disposition home or self-care (01) ==
LOC: RADNMMAIN 07:44
PROVIDERS: ATTEND Family Medicine
DX: R07.9 Chest pain, unspecified (principal)
CPT/HCPCS: 93017; 78452; A9500; J2785

== ENCOUNTER 2021-03-07 05:38 | Day surgery (SDC) | payer MEDICARE, BC ==
[2021-03-01 15:11] VITALS: BMI 32.3
[~2021-03-07 05:38] MED LIST changes: +ALPRAZolam 0.25 MG TAB PO PRN; +ALPRAZolam 0.5 MG TAB PO PRN; +ASPIRIN 325 MG TAB PO STA; +NITROGLYCERIN SL TABS 0.4 MG TAB SUBLINGUAL PRN; -REGADENOSON 0.4 MG/5 ML SYRINGE IV ONE; +SODIUM CHLORIDE 0.9% 1,000 ML in EMPTY BAG 1 BAG IV SCH
[2021-03-07] MEDS ORDERED: SODIUM CHLORIDE 0.9% 1,000 ML IV ONE (06:14)
[2021-03-07 06:41] VITALS: RESP 16; TEMP 98.1
[2021-03-07 06:43] LABS: Basophils # (A) 0.1 k/uL (0-0.2); Basophils % (A) 1 %; Eosinophils # (A) 0.4 k/uL (0-0.7); Eosinophils % (A) 4 %; HCT 39.4 % (34.0-46.0); Lymphocytes # (A) 2.3 k/uL (1.0-4.8); Lymphocytes % (A) 21 %; MCH 31.1 pg (25.0-35.0); MCHC 33.1 g/dL (31.0-37.0); MCV 93.8 fL (80.0-100.0); Mean Platelet Volume 7.6; Monocytes # (A) 0.6 k/uL (0-1.0); Monocytes % (A) 5 %; Neutrophils # (A) 7.5 k/uL (1.3-7.7); Neutrophils % (A) 68 %; Platelet Count 264 k/uL (150-450); RBC 4.19 m/uL (3.80-5.40); RDW 13.2 % (11.5-15.5)
[2021-03-07 06:52] LABS: Potassium 4.4 mmol/L (3.5-5.1)
[2021-03-07] MEDS ORDERED: HEPARIN SODIUM,PORCINE 2,500 UNIT in SODIUM CHLORIDE 0.9% 250 ML IRRIGATION PRN (07:00)
[2021-03-07] MEDS ORDERED: HEPARIN SODIUM,PORCINE 10,000 UNIT in SODIUM CHLORIDE 0.9% 1,000 ML IRRIGATION PRN (07:00)
[2021-03-07] MEDS ORDERED: VERAPAMIL 2.5 MG/ML 2 ML AMP ONE (07:25)
[2021-03-07] MEDS ORDERED: LIDOCAINE 1% INJ 10MG/ML (20 ML MDV) ONE (07:25)
[2021-03-07] MEDS ORDERED: HEPARIN SODIUM 1,000 UN/ML (10ML VL) ONE (07:34)
[2021-03-07] MEDS ORDERED: fentaNYL (PF) 50 MCG/ML 2 ML AMP ONE (07:34)
[2021-03-07] MEDS ORDERED: fentaNYL (PF) 50 MCG/ML 2 ML AMP IVP ONE (07:58)
[2021-03-07] MEDS ORDERED: LIDOCAINE 1% INJ 10MG/ML (20 ML MDV) SQ ONE (07:58)
[2021-03-07] MEDS ORDERED: MIDAZOLAM 2 MG/2 ML VIAL IVP ONE (08:00)
[2021-03-07] MEDS ORDERED: VERAPAMIL SYRINGE (5 MG/10 ML) INTRAARTER ONE (08:01)
[2021-03-07] MEDS ORDERED: HEPARIN SODIUM 1,000 UN/ML (10ML VL) IV ONE (08:09)
[2021-03-07] MEDS ORDERED: IOPAMIDOL-370 125ML BTL INJ ONE (08:17)
[2021-03-07] MEDS ORDERED: RX INFO: IV CONTRAST WAS GIVEN 1 EACH MISC MISCELLANE PRN (08:34)
--- NOTE | 2021-03-07 08:34 | P.CARDCATH ---
Description of Procedure: Cardiac Catheterization: [The patient presents with symptoms of dyspnea, occasional chest discomfort and had an abnormal MPI. In view of that recommendations were made regarding cardiac catheterizations, the risks and the complications were discussed with the patient was in full understanding and agreement agreement.] Procedure Description: Patient was brought to company laborer in fasting semi-sedated state after receiving Fentanyl and Benadryl achieiving moderate conscious sedated state. Using Xylocaine Anesthesia and Seldinger technique, a 6-Ugandan sheath was introduced in the [right] radial artery . Subsequently, Following that, selective [coronary] angiography performed using a [5]-Ugandan [3.5] bend [right the left Zoran] catheter. Multiple views of the coronary artery including hemiaxial views were obtained. The [5-Ugandan tight valve] catheter was used to cross the aortic valve and [LVEDP] was calculated. Following that, catheter and sheath were removed. Hemostasis was obtained with deployment of TR band . There was no immediate complication. Patient was returned to room in stable condition. Of note, the patient received a total of [4000] units of intravenous heparin as well as intra-arterial verapamil. There was no immediate complications. Findings: [Fluoroscopy showed severe calcifications] Coronary Angiogram: Left main: This is a large size vessel, bifurcating to LAD and left circumflex, has no evidence of high-grade stenosis. LAD: This is a heavily calcified vessel, giving rise to a diagonal branch proximally, the LAD has a 30-40% plaque in the midsegment the takeoff of the diagonal branch has a 50-60% plaque, the rest of the vessel has no high-grade stenosis. Circumflex: Nondominant vessel, large in caliber, giving rise to 2 large obtuse marginal branch, circumflex is no evidence of high-grade stenosis. Right coronary artery: Is a heavily calcified vessel, dominant, the ostium of the RCA has a 50% plaque is another plaque of 50% in the midsegment the rest of the vessel has no high-grade stenosis. [] Ventriculogram: Was not performed. Hemodynamics there was a 20 mm gradient across the aortic valve. Left ventricle end-diastolic pressure 16-20 mmHg. Conclusion: [1. Severe coronary artery calcifications. 2. Moderate disease in the LAD and RCA. 3. 20 mm gradient across the aortic valve] Recommendations: [In view of the findings I have recommended continued medical therapy, there is no significant progression of disease compared to the prior testing. Those findings and recommendations were discussed with the patient and her family, they are in full understanding and agreement.] Duration of sedation is [22] minutes.
[2021-03-07] MEDS ORDERED: SODIUM CHLORIDE 0.9% 1,000 ML IV SCH (08:45)
[2021-03-07 10:06] LABS: Glucose,Whole Blood 184 mg/dL (75-99)
[2021-03-07 16:34] VITALS: BP 137/63; PULSE 59
[2021-03-07] MEDS ORDERED: ATORVASTATIN 40 MG TAB PO SCH (21:00)
[2021-03-07] MEDS ORDERED: NON FORMULARY DRUG (Insulin Glargine,Hum.Rec.Anlog [Basaglar Kwikpen U-100] 100 UNIT/ML In SQ SCH (21:00)
[2021-03-08] MEDS ORDERED: GLIMEPIRIDE 2 MG TAB PO SCH (07:30)
[2021-03-08] MEDS ORDERED: ISOSORBIDE MONONITRATE ER 30 MG TAB.ER.24H PO SCH (09:00)
[2021-03-08] MEDS ORDERED: LOSARTAN 25 MG TAB PO SCH (09:00)
[2021-03-08] MEDS ORDERED: ASPIRIN 81 MG PO SCH (09:00)
== END 2021-03-07 13:38 | disposition home or self-care (01) ==
LOC: CATHCVL 05:38
PROVIDERS: ATTEND Internal Medicine Interventional Cardiology
DX: I25.10 Atherosclerotic heart disease of native coronary artery without angina pectoris (principal); J84.10 Pulmonary fibrosis, unspecified; E11.9 Type 2 diabetes mellitus without complications; I10 Essential (primary) hypertension; E78.2 Mixed hyperlipidemia; D64.9 Anemia, unspecified; M19.90 Unspecified osteoarthritis, unspecified site; Z20.822 Contact with and (suspected) exposure to COVID-19; Z99.81 Dependence on supplemental oxygen; Z79.899 Other long term (current) drug therapy; Z79.82 Long term (current) use of aspirin; Z79.4 Long term (current) use of insulin; Z79.890 Hormone replacement therapy; Z91.09 Other allergy status, other than to drugs and biological substances; Z90.710 Acquired absence of both cervix and uterus; Z96.659 Presence of unspecified artificial knee joint; Z90.89 Acquired absence of other organs; Z98.890 Other specified postprocedural states; Z90.49 Acquired absence of other specified parts of digestive tract; Z82.49 Family history of ischemic heart disease and other diseases of the circulatory system; Z82.3 Family history of stroke
CPT/HCPCS: 93458; 80048; 85025; 87635; C1894; C1769; J2250; J2001; J3010; J1644; Q9967

== ENCOUNTER 2021-10-09 16:04 | Observation (INO) | payer MEDICARE, BC ==
--- NOTE | 2021-10-09 16:37 | XR ---
EXAMINATION TYPE: XR chest 2V DATE OF EXAM: 10/09/2021 4:33 PM COMPARISON: Chest radiographs from 01/02/2019 TECHNIQUE: XR chest 2V Frontal and lateral views of the chest. CLINICAL INDICATION:Female, 81 years old with history of Chest Pain; FINDINGS: Lungs/Pleura: There is no evidence of pleural effusion, focal consolidation, or pneumothorax. Pulmonary vascularity: Pulmonary vascular congestion. Heart/mediastinum: Cardiomediastinal silhouette is enlarged and stable. Musculoskeletal: No acute osseous pathology. Reverse shoulder total arthroplasty changes on the left. IMPRESSION: Cardiomegaly and mild pulmonary vascular congestion. Correlate with BNP for congestive heart failure.
[2021-10-09 16:40] LABS: Basophils # (A) 0.1 k/uL (0-0.2); Basophils % (A) 1 %; Eosinophils # (A) 0.5 k/uL (0-0.7); Eosinophils % (A) 4 %; HCT 38.6 % (34.0-46.0); HGB 12.5 gm/dL (11.4-16.0); Lymphocytes # (A) 2.2 k/uL (1.0-4.8); Lymphocytes % (A) 19 %; MCH 30.1 pg (25.0-35.0); MCHC 32.3 g/dL (31.0-37.0); MCV 93.3 fL (80.0-100.0); Mean Platelet Volume 7.8; Monocytes # (A) 0.6 k/uL (0-1.0); Monocytes % (A) 5 %; Neutrophils # (A) 8.6 k/uL (1.3-7.7); Neutrophils % (A) 71 %; Platelet Count 318 k/uL (150-450); RBC 4.14 m/uL (3.80-5.40); RDW 13.2 % (11.5-15.5); WBC 12.1 k/uL (3.8-10.6)
[2021-10-09 16:49] LABS: INR 0.9 (<1.2); Partial Thromboplastin Time 23.3 sec (22.0-30.0); Prothrombin Time 10.2 sec (9.0-12.0)
[2021-10-09 17:00] LABS: Albumin 4.3 g/dL (3.5-5.0); Calcium 9.4 mg/dL (8.4-10.2); Magnesium 2.1 mg/dL (1.6-2.3); Potassium 4.5 mmol/L (3.5-5.1); Total Bilirubin 0.5 mg/dL (0.2-1.3); Total Protein 7.4 g/dL (6.3-8.2)
[2021-10-09] MEDS ORDERED: SODIUM CHLORIDE 0.9% 500 ML 500 ML IV STA (19:15)
[2021-10-09] MEDS ORDERED: ASPIRIN 81 MG PO STA (19:15)
[2021-10-09] MEDS ORDERED: NALOXONE 0.4 MG/ML 1 ML VIAL IV PRN (19:23)
--- NOTE | 2021-10-09 19:23 | ED ---
General Adult HPI - General Chief complaint: Chest Pain Stated complaint: poss heart attack Time Seen by Provider: 10/09/21 18:50 Source: patient, RN notes reviewed, old records reviewed Mode of arrival: ambulatory Limitations: no limitations - History of Present Illness Initial comments: Patient is a 81-year-old female with past medical history remarkable for pulmonary fibrosis, diabetes, hypertension who presents emergency Department complaining of chest pain. Onset of chest pain was 1 hour prior to arrival. I reevaluated patient and she was placed in a room approximately 3 hours after arrival. So it was 4 hours prior to me evaluating the patient. She is asymptomatic at this time. Denies any current chest pain, shortness of breath that is new. Chronically shortness of breath secondary to pulmonary fibrosis it is not worse than normal. Chronically his primary mild lower extremity edema that is not worse than normal. Endorses having episodes of diarrhea this morning. Denies any current nausea but states that when she had chest pain earlier she had nausea. States the pain lasted for maybe 30 minutes and resolved when she sat down. Describes the pain as left sided upper chest that was sharp with radiation to the posterior left shoulder. It self resolved. Currently is asymptomatic at this time. Presents for further evaluation at this time. - Related Data Home Medications Medication Instructions Recorded Confirmed Insulin Aspart [NovoLOG Flexpen] See Protocol SQ TID-W/MEALS PRN 12/31/18 10/09/21 Insulin Glargine,Hum.rec.anlog 40 unit SQ HS 02/24/19 10/09/21 [Basaglar Kwikpen U-100] Aspirin [Adult Low Dose Aspirin EC] 81 mg PO DAILY 03/01/21 10/09/21 Atorvastatin [Lipitor] 40 mg PO HS 03/01/21 10/09/21 Glimepiride [Amaryl] 2 mg PO AC-BRKFST 03/01/21 10/09/21 Isosorbide Mononitrate [Isosorbide 30 mg PO DAILY 03/01/21 10/09/21 Mononitrate ER] Losartan/Hydrochlorothiazide 1 tab PO DAILY 10/09/21 10/09/21 [Losartan-Hctz 100-12.5 mg Tab] amLODIPine [Norvasc] 5 mg PO HS 10/09/21 10/09/21 rOPINIRole HCL [Requip] 0.5 mg PO HS 10/09/21 10/09/21 Allergies Allergy/AdvReac Type Severity Reaction Status Date / Time latex Allergy Unknown Rash/Hives Verified 10/09/21 20:47 Review of Systems ROS Statement: Those systems with pertinent positive or pertinent negative responses have been documented in the HPI. Review of Systems: CONST: Denies fever EYES: Denies blurry vision ENT: Denies nasal congestion C/V: Denies Chest pain RESP: Denies shortness of breath GI: Denies abdominal pain : Denies dysuria SKIN: Denies rash. MSK: Denies joint pain. NEURO: Denies headache ROS Other: All systems not noted in ROS Statement are negative. Past Medical History Past Medical History: Chest Pain / Angina, Diabetes Mellitus, Hyperlipidemia, Hypertension, Osteoarthritis (OA) Additional Past Medical History / Comment(s): VARICOSE VEINS, BACK PAIN, SEPSIS, PULMONARY FIBROSIS- O2@2L per N/c prn History of Any Multi-Drug Resistant Organisms: None Reported Past Surgical History: Hysterectomy, Joint Replacement Additional Past Surgical History / Comment(s): ELIJAH TOTAL KNEES, LEFT THUMB ligament repair, LOOP RECORDER removed, left shoulder replacement Past Anesthesia/Blood Transfusion Reactions: No Reported Reaction Additional Past Anesthesia/Blood Transfusion Reaction / Comment(s): "sometimes takes long time to wake up" Type of Cardiac Device: Loop Device Placement Date:: 2014 Past Psychological History: Anxiety, Depression Smoking Status: Never smoker Past Alcohol Use History: None Reported Past Drug Use History: None Reported - Past Family History Sister(s) Family Medical History: Cancer Additional Family Medical History / Comment(s): SISTER #1 LEUKEMIA. SISTER #2 STOMACH CA General Exam - General Exam Comments Initial Comments: General: Appears in no acute distress. HEAD: Normal with no signs of head trauma. EYES: PERRLA, EOMI, conjunctiva normal, no discharge. ENT: Hearing grossly intact, normal oropharynx. RESPIRATORY: Clear breath sounds bilaterally. No wheezes, rales, or rhonchi. C/V: Regular rate and rhythm. S1 and S2 auscultated. Very mild 1+ pitting edema to bilateral ankles. Pulses are 2+ and intact throughout. ABD: Abd is soft, nontender, nondistended EXT: Normal range of motion, no obvious deformity SKIN: No rashes or lesions observed on exposed skin. NEURO: Alert and oriented 4. NIH of 0. GCS is 15. Cranial nerves II through XII are intact. Able to ambulate without difficulty. Limitations: no limitations Course Vital Signs 10/09/21 10/09/21 16:09 20:40 Temperature 98.6 F Pulse Rate 72 58 L Respiratory 22 20 Rate Blood Pressure 133/68 140/71 O2 Sat by Pulse 98 99 Oximetry Medical Decision Making - Medical Decision Making Based on the patient's presentation and physical exam, I'm concerned for possible cardiac etiology for her current symptoms. Labs were already obtained while patient was in triage. There are remarkable for slight leukocytosis of 12.1. Patient has an AK I with a BUN of 37 and creatinine of 1.83. Troponin is undetectable. BNP and urinalysis and Covid swabs are pending. Chest x-ray shows possible mild pulmonary vascular congestion. EKG shows no signs of acute ischemia.Patient was given a small fluid bolus for her RADHA. I discussed results with the patient. Patient's heart score is 5. I did discus s observation admission for monitoring. She was in agreement with this plan. Vital signs within normal limits. Patient was administered 324 mg of aspirin, echo was ordered, and we will trend the troponin. Cardiology was consulted for evaluation tomorrow. I spoke with the patient's PCP, Dr. Wells was in agreement with the plan and accepted the admission. She was admitted to observation telemetry in stable condition.Urinalysis eventually did return and was remarkable for possible UTI. Does appear contaminated. Will be given empirically a one-time dose of antibiotics. In patient team can decide if they want to continue or not. Patient was therefore admitted in stable condition. - Lab Data Result diagrams: 10/09/21 16:23 10/09/21 16:23 Lab Results 10/09/21 10/09/21 10/09/21 Range/Units 16:23 16:23 16:23 WBC 12.1 H (3.8-10.6) k/uL RBC 4.14 (3.80-5.40) m/uL Hgb 12.5 (11.4-16.0) gm/dL Hct 38.6 (34.0-46.0) % MCV 93.3 (80.0-100.0) fL MCH 30.1 (25.0-35.0) pg MCHC 32.3 (31.0-37.0) g/dL RDW 13.2 (11.5-15.5) % Plt Count 318 (150-450) k/uL MPV 7.8 Neutrophils % 71 % Lymphocytes % 19 % Monocytes % 5 % Eosinophils % 4 % Basophils % 1 % Neutrophils # 8.6 H (1.3-7.7) k/uL Lymphocytes # 2.2 (1.0-4.8) k/uL Monocytes # 0.6 (0-1.0) k/uL Eosinophils # 0.5 (0-0.7) k/uL Basophils # 0.1 (0-0.2) k/uL PT 10.2 (9.0-12.0) sec INR 0.9 (<1.2) APTT 23.3 (22.0-30.0) sec Sodium 139 (137-145) mmol/L Potassium 4.5 (3.5-5.1) mmol/L Chloride 104 (98-107) mmol/L Carbon Dioxide 20 L (22-30) mmol/L Anion Gap 15 mmol/L BUN 37 H (7-17) mg/dL Creatinine 1.83 H (0.52-1.04) mg/dL Est GFR (CKD-EPI)AfAm 29 (>60 ml/min/1.73 sqM) Est GFR (CKD-EPI)NonAf 26 (>60 ml/min/1.73 sqM) Glucose 136 H (74-99) mg/dL Calcium 9.4 (8.4-10.2) mg/dL Magnesium 2.1 (1.6-2.3) mg/dL Total Bilirubin 0.5 (0.2-1.3) mg/dL AST 27 (14-36) U/L ALT 21 (4-34) U/L Alkaline Phosphatase 112 (38-126) U/L Troponin I (0.000-0.034) ng/mL Total Protein 7.4 (6.3-8.2) g/dL Albumin 4.3 (3.5-5.0) g/dL 10/09/21 Range/Units 16:23 WBC (3.8-10.6) k/uL RBC (3.80-5.40) m/uL Hgb (11.4-16.0) gm/dL Hct (34.0-46.0) % MCV (80.0-100.0) fL MCH (25.0-35.0) pg MCHC (31.0-37.0) g/dL RDW (11.5-15.5) % Plt Count (150-450) k/uL MPV Neutrophils % % Lymphocytes % % Monocytes % % Eosinophils % % Basophils % % Neutrophils # (1.3-7.7) k/uL Lymphocytes # (1.0-4.8) k/uL Monocytes # (0-1.0) k/uL Eosinophils # (0-0.7) k/uL Basophils # (0-0.2) k/uL PT (9.0-12.0) sec INR (<1.2) APTT (22.0-30.0) sec Sodium (137-145) mmol/L Potassium (3.5-5.1) mmol/L Chloride (98-107) mmol/L Carbon Dioxide (22-30) mmol/L Anion Gap mmol/L BUN (7-17) mg/dL Creatinine (0.52-1.04) mg/dL Est GFR (CKD-EPI)AfAm (>60 ml/min/1.73 sqM) Est GFR (CKD-EPI)NonAf (>60 ml/min/1.73 sqM) Glucose (74-99) mg/dL Calcium (8.4-10.2) mg/dL Magnesium (1.6-2.3) mg/dL Total Bilirubin (0.2-1.3) mg/dL AST (14-36) U/L ALT (4-34) U/L Alkaline Phosphatase (38-126) U/L Troponin I <0.012 (0.000-0.034) ng/mL Total Protein (6.3-8.2) g/dL Albumin (3.5-5.0) g/dL - EKG Data -: EKG Interpreted by Me EKG Comments: 12-lead Electrocardiogram Interpretation Note EKG was reviewed and interpreted by myself. 12-lead ECG performed at 1613 is interpreted by me as revealing normal sinus rhythm at a rate of 74 beats per minute. [place] is normal. [place] interval is 139 ms, QRS duration is 89 ms, QTc is 436 ms.. There were no ST or T wave abnormalities to suggest myocardial ischemia or injury. R wave progression across the precordium was satisfactory. By my interpretation this EKG is non-diagnostic for acute ischemia. Disposition Clinical Impression: Chest pain, RADHA (acute kidney injury) Narrative: rule out uti Disposition: ADMITTED IP TO THIS HOSP Condition: Stable Time of Disposition: 19:15
[2021-10-09] MEDS: HEPARIN SODIUM,PORCINE/PF 5,000 UNIT/0.5 ML SYRINGE SQ SCH (20:55)
[2021-10-09 20:58] LABS: Appearance,Urine Turbid (Clear); Bacteria,Urine Moderate /hpf; Bilirubin,Urine Negative (Negative); Blood,Urine Small (Negative); Color,Urine Yellow; Glucose,Urine (UA) Negative (Negative); Hyaline Casts,Urine 15 /lpf (0-2); Ketones,Urine Negative (Negative); Leukocyte Esterase,Urine Large (Negative); Mucus,Urine Rare /hpf; Nitrite,Urine Negative (Negative); PH, Urine 5.5 (5.0-8.0); Protein,Urine 1+ (Negative); RBC,Urine 43 /hpf (0-5); Squamous Epithelial Cell,Urine 67 /hpf (0-4); Urobilinogen,Urine <2.0 mg/dL (<2.0); WBC,Urine >182 /hpf (0-5)
[2021-10-09] MEDS: amLODIPine 5 MG TAB PO SCH (22:57)
[2021-10-09] MEDS: ATORVASTATIN 40 MG TAB PO SCH (22:58)
[2021-10-09] MEDS ORDERED: DEXTROSE 50% SYRINGE 50 ML IVP PRN ×2 (23:09)
[2021-10-09 23:19] LABS: Glucose,Whole Blood 138 mg/dL (70-110)
[2021-10-09] MEDS: INSULIN ASPART (NovoLOG) 100 UNIT/ML VIAL SQ SCH (23:20)
[2021-10-10 07:22] LABS: Glucose,Whole Blood 115 mg/dL (70-110)
[2021-10-10] MEDS: INSULIN ASPART (NovoLOG) 100 UNIT/ML VIAL SQ SCH ×4 (07:36→21:06)
[2021-10-10 09:35] LABS: Basophils # (A) 0.07 X 10*3/uL (0.00-0.10); Basophils % (A) 0.7 %; Eosinophils # (A) 0.73 X 10*3/uL (0.04-0.35); Eosinophils % (A) 7.2 %; HCT 34.8 % (37.2-46.3); HGB 11.4 g/dL (12.0-15.0); Immature Grans, Automated 0.8 %; Lymphocytes # (A) 2.83 X 10*3/uL (0.90-5.00); Lymphocytes % (A) 27.8 %; MCH 30.6 pg (27.0-32.0); MCHC 32.8 g/dL (32.0-37.0); MCV 93.5 fL (80.0-97.0); Mean Platelet Volume 10.9 fL (9.5-12.2); Monocytes # (A) 0.74 X 10*3/uL (0.20-1.00); Monocytes % (A) 7.3 %; NRBC Per 100 WBC 0 /100 WBCS (0.0-0.0); Neutrophils # (A) 5.74 X 10*3/uL (1.80-7.70); Neutrophils % (A) 56.2 %; Platelet Count 286 X 10*3/uL (140-440); RBC 3.72 X 10*6/uL (4.10-5.20); RDW 13.4 % (11.5-14.5); WBC 10.19 X 10*3/uL (4.50-10.00)
[2021-10-10 09:56] LABS: African American GFR (CKD) 34.7 (60.0-200.0); Anion Gap 9.5 mmol/L (10.00-18.00); BUN/Creat Ratio 21.56 Ratio (12.00-20.00); Blood Urea Nitrogen 34.5 mg/dL (9.0-27.0); Calcium 8.9 mg/dL (8.7-10.3); Carbon Dioxide 23.5 mmol/L (20.0-27.5); Non-African American GFR(CKD) 29.9 (60.0-200.0); Potassium 4.4 mmol/L (3.5-5.5)
--- NOTE | 2021-10-10 10:04 | P.CRDCN ---
History of Present Illness History of present illness: HISTORY OF PRESENT ILLNESS: This is a 81-year-old female with a past medical history significant for coronary artery disease, hypertension, hyperlipidemia, and diabetes. Patient follows in the office with Dr. Steiner. We have been asked to see the patient in consultation for chest pain. Patient examined at the bedside. Patient states yesterday she was out grocery shopping with her sister when she began to develop chest discomfort. She states the pain is in the left side of her chest and radiated into her left shoulder blade. She reported feeling short of breath. She also reported feeling diaphoretic and nauseous. She denies any vomiting. She states she sat down to rest and the pain resolved on its own. She denies having any further chest pain since coming to the hospital. * EKG reveals sinus mechanism with no signs of acute ischemia * Chest xray cardiomegaly and mild pulmonary vascular congestion. * Laboratory data: WBC 10.19. Hemoglobin 11.4. Platelet count 286. Sodium 141. Potassium 4.4. BUN 34. Creatinine 1.6. Troponin negative 3. * Current home cardiac medications include aspirin 81 mg daily, Lipitor 40 mg at night, Imdur 30 mg daily, Norvasc 5 mg at night, losartan-hydrochlorothiazide 68372.5 mg daily * Most recent echocardiogram obtained in February 2021 revealed normal ejection fraction, mild MR, mild TR * Cardiac catheterization history: February 2021 revealing 35% mid LAD, 55% ostial D1, 50% ostial RCA, 50% mid RCA REVIEW OF SYSTEMS: At the time of my exam: CONSTITUTIONAL: Denies fever or chills. HEENT: Denies blurred vision, vision changes, or eye pain. Denies hemoptysis CARDIOVASCULAR: Denies chest pain. Denies orthopnea. Denies PND. Denies palpitations RESPIRATORY: Denies shortness of breath. GASTROINTESTINAL: Denies abdominal pain. Denies nausea or vomiting. HEMATOLOGIC: Denies bleeding disorders. GENITOURINARY: Denies any blood in urine. SKIN: Denies pruitis. Denies rash. PHYSICAL EXAM: VITAL SIGNS: Reviewed. GENERAL: Well-developed in no acute distress. HEENT: Head is normocephalic. Pupils are equal, round. Sclerae anicteric. Mucous membranes of the mouth are moist. Neck supple. No JVD or thyromegaly LUNGS: Respirations even and unlabored. Lungs essentially clear to auscultation bilaterally. HEART: Regular rate and rhythm. S1 and S2 heard. Systolic murmur noted. ABDOMEN: Soft. Nondistended. Nontender. EXTREMITIES: Normal range of motion. No clubbing or cyanosis. Peripheral pulses intact. No lower extremity edema NEUROLOGIC: Awake and alert. Oriented x 3. ASSESSMENT: Chest pain, troponins negative 3 Urinary tract infection Acute kidney injury Nonobstructive coronary artery disease Hypertension Hyperlipidemia Diabetes PLAN: An acute coronary event has been ruled out Obtain 2-D echo to assess cardiac structure and function Resume home cardiac medications Hold losartan Monitor kidney function Further recommendations pending patient's course Nurse practitioner note has been reviewed by physician. Signing provider agrees with the documented findings, assessment, and plan of care. Past Medical History Past Medical History: Chest Pain / Angina, Diabetes Mellitus, Hyperlipidemia, Hypertension, Osteoarthritis (OA) Additional Past Medical History / Comment(s): VARICOSE VEINS, BACK PAIN, SEPSIS, PULMONARY FIBROSIS- O2@2L per N/c prn History of Any Multi-Drug Resistant Organisms: None Reported Past Surgical History: Hysterectomy, Joint Replacement Additional Past Surgical History / Comment(s): ELIJAH TOTAL KNEES, LEFT THUMB ligament repair, LOOP RECORDER removed, left shoulder replacement Past Anesthesia/Blood Transfusion Reactions: No Reported Reaction Additional Past Anesthesia/Blood Transfusion Reaction / Comment(s): "sometimes takes long time to wake up" Type of Cardiac Device: Loop Device Placement Date:: 2014 Past Psychological History: Anxiety, Depression Smoking Status: Never smoker Past Alcohol Use History: None Reported Past Drug Use History: None Reported - Past Family History Sister(s) Family Medical History: Cancer Additional Family Medical History / Comment(s): SISTER #1 LEUKEMIA. SISTER #2 STOMACH CA Medications and Allergies Home Medications Medication Instructions Recorded Confirmed Type Insulin Aspart [NovoLOG Flexpen] See Protocol SQ TID-W/MEALS PRN 12/31/18 10/09/21 History Insulin Glargine,Hum.rec.anlog 40 unit SQ HS 02/24/19 10/09/21 History [Basaglar Kwikpen U-100] Aspirin [Adult Low Dose Aspirin EC] 81 mg PO DAILY 03/01/21 10/09/21 History Atorvastatin [Lipitor] 40 mg PO HS 03/01/21 10/09/21 History Glimepiride [Amaryl] 2 mg PO AC-BRKFST 03/01/21 10/09/21 History Isosorbide Mononitrate [Isosorbide 30 mg PO DAILY 03/01/21 10/09/21 History Mononitrate ER] Losartan/Hydrochlorothiazide 1 tab PO DAILY 10/09/21 10/09/21 History [Losartan-Hctz 100-12.5 mg Tab] amLODIPine [Norvasc] 5 mg PO HS 10/09/21 10/09/21 History rOPINIRole HCL [Requip] 0.5 mg PO HS 10/09/21 10/09/21 History Allergies Allergy/AdvReac Type Severity Reaction Status Date / Time latex Allergy Unknown Rash/Hives Verified 10/09/21 20:47 Physical Exam Vitals: Vital Signs Temp Pulse Pulse Resp BP BP Pulse Ox 10/10/21 07:37 17 10/10/21 07:00 97.8 F 63 20 139/67 100 10/10/21 02:31 98.2 F 61 17 116/59 97 10/09/21 21:42 97.8 F 55 L 16 135/55 99 10/09/21 20:40 58 L 20 140/71 99 10/09/21 16:09 98.6 F 72 22 133/68 98 Intake and Output 10/09/21 10/10/21 10/10/21 22:59 06:59 14:59 Other: Voiding Method Toilet # Voids 1 1 Weight 80.286 kg Results 10/10/21 05:08 10/10/21 05:08 Cardiac Enzymes 10/09/21 10/09/21 10/09/21 Range/Units 16:23 16:23 21:46 AST 27 (14-36) U/L Troponin I <0.012 <0.012 (0.000-0.034) ng/mL 10/10/21 Range/Units 00:43 AST (14-36) U/L Troponin I <0.012 (0.000-0.034) ng/mL Coagulation 10/09/21 Range/Units 16:23 PT 10.2 (9.0-12.0) sec APTT 23.3 (22.0-30.0) sec CBC 10/09/21 Range/Units 16:23 WBC 12.1 H (3.8-10.6) k/uL RBC 4.14 (3.80-5.40) m/uL Hgb 12.5 (11.4-16.0) gm/dL Hct 38.6 (34.0-46.0) % Plt Count 318 (150-450) k/uL Comprehensive Metabolic Panel 10/09/21 Range/Units 16:23 Sodium 139 (137-145) mmol/L Potassium 4.5 (3.5-5.1) mmol/L Chloride 104 (98-107) mmol/L Carbon Dioxide 20 L (22-30) mmol/L BUN 37 H (7-17) mg/dL Creatinine 1.83 H (0.52-1.04) mg/dL Glucose 136 H (74-99) mg/dL Calcium 9.4 (8.4-10.2) mg/dL AST 27 (14-36) U/L ALT 21 (4-34) U/L Alkaline Phosphatase 112 (38-126) U/L Total Protein 7.4 (6.3-8.2) g/dL Albumin 4.3 (3.5-5.0) g/dL Current Medications Generic Name Dose Route Start Last Admin Trade Name Freq PRN Reason Stop Dose Admin Amlodipine Besylate 5 mg 10/09/21 22:45 10/09/21 22:57 Amlodipine 5 Mg Tab PO 5 mg HS CHELLE Administration Aspirin 81 mg 10/10/21 09:00 Aspirin 81 Mg PO DAILY [facility] Atorvastatin Calcium 40 mg 10/09/21 22:45 10/09/21 22:58 Atorvastatin 40 Mg Tab PO 40 mg HS CHELLE Administration Dextrose/Water 25 ml 10/09/21 23:09 Dextrose 50% Syringe 50 Ml IVP PER PROTOCOL PRN Hypoglycemia Protocol Dextrose/Water 50 ml 10/09/21 23:09 Dextrose 50% Syringe 50 Ml IVP PER PROTOCOL PRN Hypoglycemia Protocol Heparin Sodium (Porcine) 5,000 unit 10/09/21 21:00 10/09/21 20:55 Heparin Sodium,Porcine/Pf 5,000 Unit/0.5 Ml Syringe SQ 5,000 unit Q12HR CHELLE Administration Insulin Aspart 0 unit 10/09/21 23:09 10/10/21 07:36 Insulin Aspart (Novolog) 100 Unit/Ml Vial SQ Not Given ACHS CHELLE Protocol Isosorbide Mononitrate 30 mg 10/10/21 09:00 Isosorbide Mononitrate Er 30 Mg Tab.Er.24h PO DAILY CHELLE Naloxone HCl 0.2 mg 10/09/21 19:23 Naloxone 0.4 Mg/Ml 1 Ml Vial IV Q2M PRN Opioid Reversal Ropinirole HCl 0.5 mg 10/09/21 22:45 10/09/21 22:58 Ropinirole Hcl 0.25 Mg Tab PO 0.5 mg HS CHELLE Administration Intake and Output 10/09/21 10/10/21 10/10/21 22:59 06:59 14:59 Other: Voiding Method Toilet # Voids 1 1 Weight 80.286 kg 10/09/21 16:23 10/09/21 16:23
[2021-10-10] MEDS: ASPIRIN 81 MG PO SCH (10:09)
[2021-10-10] MEDS: HEPARIN SODIUM,PORCINE/PF 5,000 UNIT/0.5 ML SYRINGE SQ SCH ×2 (10:09→19:59)
[2021-10-10] MEDS: ISOSORBIDE MONONITRATE ER 30 MG TAB.ER.24H PO SCH (10:09)
--- NOTE | 2021-10-10 11:31 | CA ---
Transthoracic Echo Report Name: Aparna Davila Age: 81 Gender: F : 1940 Exam Date: 10/10/2021 09:19 Exam Location: [place] [facility] Ht (in): 62 Wt (lb): 177 Ordering Physician: Rj Maloney MD Attending/Referring Phys: Post Framer Gilda Truong RDCS Procedure CPT: Indications: Chest Pain Cardiac Hx: Technical Quality: Fair Contrast 1: Total Dose (mL): Contrast 2: Total Dose (mL): MEASUREMENTS (Male / Female) Normal Values 2D ECHO LV Diastolic Diameter PLAX 3.9 cm 4.2 - 5.9 / 3.9 - 5.3 cm LV Systolic Diameter PLAX 1.9 cm IVS Diastolic Thickness 1.3 cm 0.6 - 1.0 / 0.6 - 0.9 cm LVPW Diastolic Thickness 1.4 cm 0.6 - 1.0 / 0.6 - 0.9 cm LV Relative Wall Thickness 0.7 RV Internal Dim ED PLAX 3.0 cm LA Volume 61.5 cm??? 18 - 58 / 22 - 52 cm??? M-MODE Aortic Root Diameter MM 2.9 cm LA Systolic Diameter MM 4.4 cm LA Ao Ratio MM 1.5 AV Cusp Separation MM 2.0 cm DOPPLER AV Peak Velocity 191.9 cm/s AV Peak Gradient 14.7 mmHg LVOT Peak Velocity 92.6 cm/s LVOT Peak Gradient 3.4 mmHg MV Area PHT 2.3 cm??? Mitral E Point Velocity 100.8 cm/s Mitral A Point Velocity 129.7 cm/s Mitral E to A Ratio 0.8 MV Deceleration Time 327.3 ms MV E' Velocity 5.1 cm/s Mitral E to MV E' Ratio 19.7 TR Peak Velocity 192.3 cm/s TR Peak Gradient 14.8 mmHg Right Ventricular Systolic Press 19.8 mmHg FINDINGS Left Ventricle . Normal Left ventricular size, wall thickness, systolic function with no obvious regional wall motion abnormalities. Left ventricular ejection fraction is estimated at 55-60%.Mildly increased left ventricular wall thickness. Right Ventricle Normal right ventricular size and function. Right Atrium Normal right atrial size. Left Atrium Mildly increased left atrial volume. Mitral Valve Mild mitral annular calcification. mild mitral regurgitation. Mitral valve thickened. Aortic Valve Trileaflet aortic valve. Aortic valve sclerosis. No aortic stenosis. No aortic regurgitation. Tricuspid Valve Structurally normal tricuspid valve. Mild tricuspid regurgitation. Pulmonic Valve Structurally normal pulmonic valve. Pericardium No pericardial effusion. Aorta Normal size aortic root and proximal ascending aorta. CONCLUSIONS 1. Normal left ventricle size and systolic function 2. Mild mitral and tricuspid regurgitation Previewed by: Dr. Terri Steiner MD (Electronically Signed) Final Date: 10 October 2021 11:30
[2021-10-10 12:08] LABS: Glucose,Whole Blood 154 mg/dL (70-110)
[2021-10-10] MEDS: PANTOPRAZOLE 40 MG/10 ML VIAL IVP SCH (12:56)
[2021-10-10] MEDS: INSULIN DETEMIR (LEVEMIR) 100 UNIT/ML SYR SQ SCH (12:56)
[2021-10-10] MEDS: SODIUM CHLORIDE 0.9% 1,000 ML IV SCH (12:56)
--- NOTE | 2021-10-10 14:08 | P.HPIM ---
History of Present Illness H&P Date: 10/10/21 Chief Complaint: Chest pain, This is an 81-year-old female with past medical history of CAD, interstitial fibrosis , recurrent cystitis ,diabetes mellitus, hypertension, anxiety, depression and multiple other medical issues presented to the ER with complaints of chest pain. Recent cardiac catheterization 02/2021 reporting normal LV function ,severe CAD, moderate disease in the LAD and RCA, maximized medical therapy. Reports she's had diarrhea for 2 days. Upon awakening yesterday morning, left chest heaviness occurred, radiating to left shoulder blade accompanied by shortness of breath, clamminess and nausea. Teary-eyed and has been under significant stress, regarding her living arrangements. Denies lightheadedness or dizziness. Troponins negative 3, EKG reported sinus rhythm, nonspecific T-wave abnormality. Afebrile, WBC 12.9-decreased to 10.19. Hemoglobin 11.4, platelets 286. Sodium 141, potassium 4.4. Renal function on admission BUN 37, creatinine 1.83. Received IV fluid bolus currently 34.5, 1.6. Blood sugars controlled, hemoglobin A1c of 8.3. Coronavirus not detected. Chest x-ray reported cardiomegaly, mild pulmonary vascular congestion. ProBNP 172. UA reporting moderate bacteria, greater than 182 WBCs, large leukocytes, negative nitrates, culture pending. Received empiric dose of ceftriaxone in the ER. Denies cramping, frequency or burning. Cardiology consulted. Review of Systems ROS Statement: Those systems with pertinent positive or pertinent negative responses have been documented in the HPI. ROS Other: All systems not noted in ROS Statement are negative. Past Medical History Past Medical History: Chest Pain / Angina, Diabetes Mellitus, Hyperlipidemia, Hypertension, Osteoarthritis (OA) Additional Past Medical History / Comment(s): VARICOSE VEINS, BACK PAIN, SEPSIS, PULMONARY FIBROSIS- O2@2L per N/c prn History of Any Multi-Drug Resistant Organisms: None Reported Past Surgical History: Hysterectomy, Joint Replacement Additional Past Surgical History / Comment(s): ELIJAH TOTAL KNEES, LEFT THUMB ligament repair, LOOP RECORDER removed, left shoulder replacement Past Anesthesia/Blood Transfusion Reactions: No Reported Reaction Additional Past Anesthesia/Blood Transfusion Reaction / Comment(s): "sometimes takes long time to wake up" Type of Cardiac Device: Loop Device Placement Date:: 2014 Past Psychological History: Anxiety, Depression Smoking Status: Never smoker Past Alcohol Use History: None Reported Past Drug Use History: None Reported - Past Family History Sister(s) Family Medical History: Cancer Additional Family Medical History / Comment(s): SISTER #1 LEUKEMIA. SISTER #2 STOMACH CA Medications and Allergies Home Medications Medication Instructions Recorded Confirmed Type Insulin Aspart [NovoLOG Flexpen] See Protocol SQ TID-W/MEALS PRN 12/31/18 10/09/21 History Insulin Glargine,Hum.rec.anlog 40 unit SQ HS 02/24/19 10/09/21 History [Basaglar Kwikpen U-100] Aspirin [Adult Low Dose Aspirin EC] 81 mg PO DAILY 03/01/21 10/09/21 History Atorvastatin [Lipitor] 40 mg PO HS 03/01/21 10/09/21 History Glimepiride [Amaryl] 2 mg PO AC-BRKFST 03/01/21 10/09/21 History Isosorbide Mononitrate [Isosorbide 30 mg PO DAILY 03/01/21 10/09/21 History Mononitrate ER] Losartan/Hydrochlorothiazide 1 tab PO DAILY 10/09/21 10/09/21 History [Losartan-Hctz 100-12.5 mg Tab] amLODIPine [Norvasc] 5 mg PO HS 10/09/21 10/09/21 History rOPINIRole HCL [Requip] 0.5 mg PO HS 10/09/21 10/09/21 History Allergies Allergy/AdvReac Type Severity Reaction Status Date / Time latex Allergy Unknown Rash/Hives Verified 10/09/21 20:47 Physical Exam Vitals: Vital Signs Temp Pulse Pulse Resp BP BP Pulse Ox 10/10/21 07:37 17 10/10/21 07:00 97.8 F 63 20 139/67 100 10/10/21 02:31 98.2 F 61 17 116/59 97 10/09/21 21:42 97.8 F 55 L 16 135/55 99 10/09/21 20:40 58 L 20 140/71 99 10/09/21 16:09 98.6 F 72 22 133/68 98 Intake and Output 10/09/21 10/10/21 10/10/21 22:59 06:59 14:59 Other: Voiding Method Toilet # Voids 1 1 Weight 80.286 kg - Exam VITAL SIGNS: As above GENERAL: Sitting up in bed, no acute distress, teary-eyed as she discusses personal stressors HEENT: Conjunctivae normal. eyes normal. NECK: Supple, No JVD. No thyroid enlargement. No LNs CARDIOVASCULAR: S1, S2 regular. Systolic murmur RESPIRATION: Breath sounds diminished in the bases. No rhonchi or crackles. No bronchial breathing. ABDOMEN: Soft, nondistended, nontender, +BS. No rebound, no guarding. no masses palpable. No ascites, No hepatosplenomegaly. LEGS: Mild edema, positive people's PSYCHIATRY: Alert and oriented X3, mood and affect normal. NERVOUS SYSTEM: Cranial N 2-12 grossly normal. No focal deficits. Strength and sensation grossly intact. Skin: no rash , warm and dry. Results CBC & Chem 7: 10/10/21 05:08 10/10/21 05:08 Labs: Abnormal Lab Results - Last 24 Hours (Table) 10/09/21 10/09/21 10/09/21 Range/Units 16:23 16:23 19:32 WBC 12.1 H (3.8-10.6) k/uL RBC (4.10-5.20) X 10*6/uL Hgb (12.0-15.0) g/dL Hct (37.2-46.3) % Immature Gran # (0.00-0.04) X 10*3/uL Neutrophils # 8.6 H (1.3-7.7) k/uL Eosinophils # (0.04-0.35) X 10*3/uL Carbon Dioxide 20 L (22-30) mmol/L Anion Gap (10.00-18.00) mmol/L BUN 37 H (7-17) mg/dL Creatinine 1.83 H (0.52-1.04) mg/dL Est GFR (CKD-EPI)AfAm (60.0-200.0) Est GFR (CKD-EPI)NonAf (60.0-200.0) BUN/Creatinine Ratio (12.00-20.00) Ratio Glucose 136 H (74-99) mg/dL POC Glucose (mg/dL) (70-110) mg/dL Hemoglobin A1c (0.0-6.0) % Urine Appearance Turbid H (Clear) Urine Protein 1+ H (Negative) Urine Blood Small H (Negative) Ur Leukocyte Esterase Large H (Negative) Urine RBC 43 H (0-5) /hpf Urine WBC >182 H (0-5) /hpf Urine WBC Clumps Many H (None) /hpf Ur Squamous Epith Cells 67 H (0-4) /hpf Urine Bacteria Moderate H (None) /hpf Hyaline Casts 15 H (0-2) /lpf Urine Mucus Rare H (None) /hpf 10/09/21 10/10/21 10/10/21 Range/Units 23:18 00:43 05:08 WBC 10.19 H (3.8-10.6) k/uL RBC 3.72 L (4.10-5.20) X 10*6/uL Hgb 11.4 L (12.0-15.0) g/dL Hct 34.8 L (37.2-46.3) % Immature Gran # 0.08 H (0.00-0.04) X 10*3/uL Neutrophils # (1.3-7.7) k/uL Eosinophils # 0.73 H (0.04-0.35) X 10*3/uL Carbon Dioxide (22-30) mmol/L Anion Gap (10.00-18.00) mmol/L BUN (7-17) mg/dL Creatinine (0.52-1.04) mg/dL Est GFR (CKD-EPI)AfAm (60.0-200.0) Est GFR (CKD-EPI)NonAf (60.0-200.0) BUN/Creatinine Ratio (12.00-20.00) Ratio Glucose (74-99) mg/dL POC Glucose (mg/dL) 138 H (70-110) mg/dL Hemoglobin A1c 8.3 H (0.0-6.0) % Urine Appearance (Clear) Urine Protein (Negative) Urine Blood (Negative) Ur Leukocyte Esterase (Negative) Urine RBC (0-5) /hpf Urine WBC (0-5) /hpf Urine WBC Clumps (None) /hpf Ur Squamous Epith Cells (0-4) /hpf Urine Bacteria (None) /hpf Hyaline Casts (0-2) /lpf Urine Mucus (None) /hpf 10/10/21 10/10/21 10/10/21 Range/Units 05:08 07:21 12:06 WBC (3.8-10.6) k/uL RBC (4.10-5.20) X 10*6/uL Hgb (12.0-15.0) g/dL Hct (37.2-46.3) % Immature Gran # (0.00-0.04) X 10*3/uL Neutrophils # (1.3-7.7) k/uL Eosinophils # (0.04-0.35) X 10*3/uL Carbon Dioxide (22-30) mmol/L Anion Gap 9.50 L (10.00-18.00) mmol/L BUN 34.5 H (7-17) mg/dL Creatinine 1.6 H (0.52-1.04) mg/dL Est GFR (CKD-EPI)AfAm 34.7 L (60.0-200.0) Est GFR (CKD-EPI)NonAf 29.9 L (60.0-200.0) BUN/Creatinine Ratio 21.56 H (12.00-20.00) Ratio Glucose 115 H (74-99) mg/dL POC Glucose (mg/dL) 115 H 154 H (70-110) mg/dL Hemoglobin A1c (0.0-6.0) % Urine Appearance (Clear) Urine Protein (Negative) Urine Blood (Negative) Ur Leukocyte Esterase (Negative) Urine RBC (0-5) /hpf Urine WBC (0-5) /hpf Urine WBC Clumps (None) /hpf Ur Squamous Epith Cells (0-4) /hpf Urine Bacteria (None) /hpf Hyaline Casts (0-2) /lpf Urine Mucus (None) /hpf Microbiology - Last 24 Hours (Table) 10/09/21 19:32 Urine Culture - Preliminary Urine,Clean Catch Assessment and Plan Assessment: Chest pain, in a patient with personal stressors, troponin is negative 3, cardiology following CAD, Recent cardiac catheterization 02/2021 reporting normal LV function ,severe CAD, moderate disease in the LAD and RCA, recommended continued medical therapy Dehydration Acute renal failure secondary to the above Acute UTI, possible, culture pending, asymptomatic, afebrile, mild leukocytosis, in a patient with history of recurrent cystitis Diabetes mellitus, hyperglycemic, A1c 8.3 Hypertension Hyperlipidemia Anxiety Depression Plan: Continue on current medication regime ,monitoring and symptomatic treatment. Echo pending. Evaluated and cleared by cardiology for discharge. Maintain gentle IV fluid hydration. Urine culture pending. Maintain empiric IV antibiotics of ceftriaxone. Hold Losartan/HCTZ. Avoid nephrotoxic agents .Close monitoring of renal function with repeat labs ordered for a.m. heparin subcu for DVT prophylaxis and Protonix for GI prophylaxis ordered.discharge planning in progress for tomorrow. The impression and plan of care has been dictated as directed. : I performed a history and examination of this patient, discussed the same with the dictator. I agree with the dictator's note ,documented as a scribe. Any additional findings or plans will be noted.
[2021-10-10 16:29] LABS: Glucose,Whole Blood 377 mg/dL (70-110)
[2021-10-10] MEDS: ATORVASTATIN 40 MG TAB PO SCH (19:59)
[2021-10-10] MEDS: amLODIPine 5 MG TAB PO SCH (19:59)
[2021-10-10 21:02] LABS: Glucose,Whole Blood 191 mg/dL (70-110)
[2021-10-11 07:20] LABS: Glucose,Whole Blood 130 mg/dL (70-110)
[2021-10-11 07:54] VITALS: BP 117/61; PULSE 61; RESP 18; TEMP 97.7
[2021-10-11] MEDS: INSULIN ASPART (NovoLOG) 100 UNIT/ML VIAL SQ SCH ×2 (08:23→13:45)
[2021-10-11] MEDS: ASPIRIN 81 MG PO SCH (08:24)
[2021-10-11] MEDS: ISOSORBIDE MONONITRATE ER 30 MG TAB.ER.24H PO SCH (08:25)
[2021-10-11] MEDS: INSULIN DETEMIR (LEVEMIR) 100 UNIT/ML SYR SQ SCH (08:25)
[2021-10-11] MEDS: HEPARIN SODIUM,PORCINE/PF 5,000 UNIT/0.5 ML SYRINGE SQ SCH (08:26)
[2021-10-11] MEDS: PANTOPRAZOLE 40 MG/10 ML VIAL IVP SCH (08:26)
[2021-10-11] MEDS: SODIUM CHLORIDE 0.9% 1,000 ML IV SCH (08:38)
[2021-10-11 09:25] LABS: Basophils # (A) 0.07 X 10*3/uL (0.00-0.10); Basophils % (A) 0.6 %; Eosinophils # (A) 0.79 X 10*3/uL (0.04-0.35); Eosinophils % (A) 6.8 %; HCT 34.1 % (37.2-46.3); HGB 11.4 g/dL (12.0-15.0); Immature Grans, Automated 0.6 %; Lymphocytes # (A) 2.66 X 10*3/uL (0.90-5.00); MCH 30.6 pg (27.0-32.0); MCHC 33.4 g/dL (32.0-37.0); MCV 91.7 fL (80.0-97.0); Mean Platelet Volume 11.1 fL (9.5-12.2); Monocytes # (A) 0.87 X 10*3/uL (0.20-1.00); Monocytes % (A) 7.5 %; NRBC Per 100 WBC 0 /100 WBCS (0.0-0.0); Neutrophils # (A) 7.09 X 10*3/uL (1.80-7.70); Neutrophils % (A) 61.5 %; Platelet Count 252 X 10*3/uL (140-440); RBC 3.72 X 10*6/uL (4.10-5.20); RDW 13.2 % (11.5-14.5); WBC 11.55 X 10*3/uL (4.50-10.00)
--- NOTE | 2021-10-11 09:32 | P.PN ---
Subjective Progress Note Date: 10/11/21 HISTORY OF PRESENT ILLNESS: This is a 81-year-old female with a past medical history significant for coronary artery disease, hypertension, hyperlipidemia, and diabetes. Patient follows in the office with Dr. Steiner. We have been asked to see the patient in consultation for chest pain. Patient examined at the bedside. Patient states yesterday she was out grocery shopping with her sister when she began to develop chest discomfort. She states the pain is in the left side of her chest and radiated into her left shoulder blade. She reported feeling short of breath. She also reported feeling diaphoretic and nauseous. She denies any vomiting. She states she sat down to rest and the pain resolved on its own. She denies having any further chest pain since coming to the hospital. * EKG reveals sinus mechanism with no signs of acute ischemia * Chest xray cardiomegaly and mild pulmonary vascular congestion. * Laboratory data: WBC 10.19. Hemoglobin 11.4. Platelet count 286. Sodium 141. Potassium 4.4. BUN 34. Creatinine 1.6. Troponin negative 3. * Current home cardiac medications include aspirin 81 mg daily, Lipitor 40 mg at night, Imdur 30 mg daily, Norvasc 5 mg at night, losartan-hydrochlorothiazide 13295.5 mg daily * Most recent echocardiogram obtained in February 2021 revealed normal ejection fraction, mild MR, mild TR * Cardiac catheterization history: February 2021 revealing 35% mid LAD, 55% ostial D1, 50% ostial RCA, 50% mid RCA 10/11/2021 Patient examined this morning at the bedside. Patient denies any further episodes of chest pain or pressure. She denies shortness of breath. Echocardiogram completed revealing ejection fraction 55-60%. Vital signs are stable. She is receiving antibiotics for urinary tract infection. PHYSICAL EXAM: VITAL SIGNS: Reviewed. GENERAL: Well-developed in no acute distress. HEENT: Head is normocephalic. Pupils are equal, round. Sclerae anicteric. Mucous membranes of the mouth are moist. Neck supple. No JVD or thyromegaly LUNGS: Respirations even and unlabored. Lungs essentially clear to auscultation bilaterally. HEART: Regular rate and rhythm. S1 and S2 heard. Systolic murmur noted. ABDOMEN: Soft. Nondistended. Nontender. EXTREMITIES: Normal range of motion. No clubbing or cyanosis. Peripheral pulses intact. No lower extremity edema NEUROLOGIC: Awake and alert. Oriented x 3. ASSESSMENT: Chest pain, troponins negative 3 Urinary tract infection Acute kidney injury Nonobstructive coronary artery disease Hypertension Hyperlipidemia Diabetes PLAN: Continue antibiotics per primary care Continue to hold losartan Await results of BMP this morning Patient is stable for discharge home today from a cardiac standpoint We will sign off. Please reconsult if needed. Nurse practitioner note has been reviewed by physician. Signing provider agrees with the documented findings, assessment, and plan of care. Objective - Vital Signs Vital signs: Vital Signs Temp 97.7 F 10/11/21 07:00 Pulse 61 10/11/21 07:00 Resp 18 10/11/21 07:00 BP 117/61 10/11/21 07:00 Pulse Ox 98 10/11/21 07:00 FiO2 Intake & Output 10/10/21 10/11/21 10/11/21 18:59 06:59 18:59 Intake Total 358 Balance 358 Intake: Oral 358 Other: Voiding Method Toilet # Voids 2 2 - Labs CBC & Chem 7: 10/11/21 04:58 10/10/21 05:08 Labs: Abnormal Lab Results - Last 24 Hours (Table) 10/10/21 10/10/21 10/10/21 Range/Units 00:43 05:08 05:08 WBC 10.19 H (4.50-10.00) X 10*3/uL RBC 3.72 L (4.10-5.20) X 10*6/uL Hgb 11.4 L (12.0-15.0) g/dL Hct 34.8 L (37.2-46.3) % Immature Gran # 0.08 H (0.00-0.04) X 10*3/uL Eosinophils # 0.73 H (0.04-0.35) X 10*3/uL Anion Gap 9.50 L (10.00-18.00) mmol/L BUN 34.5 H (9.0-27.0) mg/dL Creatinine 1.6 H (0.6-1.5) mg/dL Est GFR (CKD-EPI)AfAm 34.7 L (60.0-200.0) Est GFR (CKD-EPI)NonAf 29.9 L (60.0-200.0) BUN/Creatinine Ratio 21.56 H (12.00-20.00) Ratio Glucose 115 H (70-110) mg/dL POC Glucose (mg/dL) (70-110) mg/dL Hemoglobin A1c 8.3 H (0.0-6.0) % 10/10/21 10/10/21 10/10/21 Range/Units 12:06 16:27 21:00 WBC (4.50-10.00) X 10*3/uL RBC (4.10-5.20) X 10*6/uL Hgb (12.0-15.0) g/dL Hct (37.2-46.3) % Immature Gran # (0.00-0.04) X 10*3/uL Eosinophils # (0.04-0.35) X 10*3/uL Anion Gap (10.00-18.00) mmol/L BUN (9.0-27.0) mg/dL Creatinine (0.6-1.5) mg/dL Est GFR (CKD-EPI)AfAm (60.0-200.0) Est GFR (CKD-EPI)NonAf (60.0-200.0) BUN/Creatinine Ratio (12.00-20.00) Ratio Glucose (70-110) mg/dL POC Glucose (mg/dL) 154 H 377 H 191 H (70-110) mg/dL Hemoglobin A1c (0.0-6.0) % 10/11/21 10/11/21 Range/Units 04:58 07:18 WBC 11.55 H (4.50-10.00) X 10*3/uL RBC 3.72 L (4.10-5.20) X 10*6/uL Hgb 11.4 L (12.0-15.0) g/dL Hct 34.1 L (37.2-46.3) % Immature Gran # 0.07 H (0.00-0.04) X 10*3/uL Eosinophils # 0.79 H (0.04-0.35) X 10*3/uL Anion Gap (10.00-18.00) mmol/L BUN (9.0-27.0) mg/dL Creatinine (0.6-1.5) mg/dL Est GFR (CKD-EPI)AfAm (60.0-200.0) Est GFR (CKD-EPI)NonAf (60.0-200.0) BUN/Creatinine Ratio (12.00-20.00) Ratio Glucose (70-110) mg/dL POC Glucose (mg/dL) 130 H (70-110) mg/dL Hemoglobin A1c (0.0-6.0) % Microbiology - Last 24 Hours (Table) 10/09/21 19:32 Urine Culture - Preliminary Urine,Clean Catch
[2021-10-11 09:49] LABS: African American GFR (CKD) 30.1 (60.0-200.0); Anion Gap 10.4 mmol/L (10.00-18.00); BUN/Creat Ratio 17.56 Ratio (12.00-20.00); Blood Urea Nitrogen 31.6 mg/dL (9.0-27.0); Calcium 8.7 mg/dL (8.7-10.3); Carbon Dioxide 22.6 mmol/L (20.0-27.5); Non-African American GFR(CKD) 25.9 (60.0-200.0); Potassium 4.4 mmol/L (3.5-5.5)
[2021-10-11 12:19] LABS: Glucose,Whole Blood 229 mg/dL (70-110)
--- NOTE | 2021-10-11 13:30 | P.DS ---
Providers Date of admission: 10/09/21 19:23 Expected date of discharge: 10/11/21 Attending physician: Warren Wells MD Primary care physician: Warren Wells MD Hospital Course: Final Diagnoses: Chest pain, in a patient with personal stressors, troponin is negative 3, cardiology cleared CAD, Recent cardiac catheterization 02/2021 reporting normal LV function ,severe CAD, moderate disease in the LAD and RCA, recommended continued medical therapy Dehydration Acute renal failure secondary to the above, improving with IV fluid hydration Acute UTI, possible, culture pending, asymptomatic, afebrile, mild leukocytosis, in a patient with history of recurrent cystitis Diabetes mellitus, hyperglycemic, A1c 8.3 Hypertension Hyperlipidemia Anxiety Depression Hospital course:This is an 81-year-old female with past medical history of CAD, interstitial fibrosis , recurrent cystitis ,diabetes mellitus, hypertension, anxiety, depression and multiple other medical issues presented to the ER with complaints of chest pain. Recent cardiac catheterization 02/2021 reporting normal LV function ,severe CAD, moderate disease in the LAD and RCA, maximized medical therapy. Reports she's had diarrhea for 2 days. Upon awakening yesterday morning, left chest heaviness occurred, radiating to left shoulder blade accompanied by shortness of breath, clamminess and nausea. Teary-eyed and has been under significant stress, regarding her living arrangements. Denies lightheadedness or dizziness. Troponins negative 3, EKG reported sinus rhythm, nonspecific T-wave abnormality. Afebrile, WBC 12.9-decreased to 10.19. Hemoglobin 11.4, platelets 286. Sodium 141, potassium 4.4. Renal function on admission BUN 37, creatinine 1.83. Received IV fluid bolus currently 34.5, 1.6. Blood sugars controlled, hemoglobin A1c of 8.3. Coronavirus not detected. Chest x-ray reported cardiomegaly, mild pulmonary vascular congestion. ProBNP 172. UA reporting moderate bacteria, greater than 182 WBCs, large leukocytes, negative nitrates, culture pending. Received empiric dose of ceftriaxone in the ER. Denies cramping, frequency or burning. Cardiology consulted. Evaluated and cleared by cardiology. Echo reported normal LV function, 55-60%. Losartan/HCTZ discontinued as per cardiology. Close monitoring of blood pressure outpatient. Maintained on empiric IV antibiotics for possible acute UTI, culture pending. Denies chest pain, palpitations or shortness of breath. Denies lightheadedness, dizziness or focal deficits. Significant clinical improvement. Patient will be discharged home today in a stable condition with guarded prognosis. The impression and plan of care has been dictated as directed. : I performed a history and examination of this patient, discussed the same with the dictator. I agree with the dictator's note ,documented as a scribe. Any additional findings or plans will be noted. Patient Condition at Discharge: Stable Plan - Discharge Summary New Discharge Prescriptions: New cefUROXime axetiL [Ceftin] 500 mg PO BID 3 Days #6 tab Continue Insulin Aspart [NovoLOG Flexpen] See Protocol SQ TID-W/MEALS PRN PRN Reason: high blood sugar Insulin Glargine,Hum.rec.anlog [Basaglar Kwikpen U-100] 40 unit SQ HS Isosorbide Mononitrate [Isosorbide Mononitrate ER] 30 mg PO DAILY Aspirin [Adult Low Dose Aspirin EC] 81 mg PO DAILY amLODIPine [Norvasc] 5 mg PO HS rOPINIRole HCL [Requip] 0.5 mg PO HS Glimepiride [Amaryl] 2 mg PO AC-BRKFST Atorvastatin [Lipitor] 40 mg PO HS Discontinued Losartan/Hydrochlorothiazide [Losartan-Hctz 100-12.5 mg Tab] 1 tab PO DAILY Discharge Medication List Insulin Aspart [NovoLOG Flexpen] See Protocol SQ TID-W/MEALS PRN 12/31/18 [History] Insulin Glargine,Hum.rec.anlog [Basaglar Kwikpen U-100] 40 unit SQ HS 02/24/19 [History] Aspirin [Adult Low Dose Aspirin EC] 81 mg PO DAILY 03/01/21 [History] Atorvastatin [Lipitor] 40 mg PO HS 03/01/21 [History] Glimepiride [Amaryl] 2 mg PO AC-BRKFST 03/01/21 [History] Isosorbide Mononitrate [Isosorbide Mononitrate ER] 30 mg PO DAILY 03/01/21 [History] amLODIPine [Norvasc] 5 mg PO HS 10/09/21 [History] rOPINIRole HCL [Requip] 0.5 mg PO HS 10/09/21 [History] cefUROXime axetiL [Ceftin] 500 mg PO BID 3 Days #6 tab 10/11/21 [Rx] Follow up Appointment(s)/Referral(s): Warren Wells MD [Primary Care Provider] - 10/14/21 10:00 am (Appointment will be at the [place] location with PA. Polly) Ambulatory/Diagnostic Orders: Basic Metabolic Panel [LAB.AMB] Time Frame: 3 Days, Location: None Selected
[2021-10-12] MEDS ORDERED: PANTOPRAZOLE 40 MG TABLET PO SCH (07:30)
== END 2021-10-11 14:47 | disposition home or self-care (01) ==
LOC: EC 16:04 → 6NMEDSUR 19:23
PROVIDERS: ADMIT Family Medicine; ATTEND Family Medicine
DX: R07.89 Other chest pain (principal); N17.9 Acute kidney failure, unspecified; E11.65 Type 2 diabetes mellitus with hyperglycemia; E86.0 Dehydration; I11.9 Hypertensive heart disease without heart failure; J84.10 Pulmonary fibrosis, unspecified; I25.10 Atherosclerotic heart disease of native coronary artery without angina pectoris; R82.71 Bacteriuria; D72.829 Elevated white blood cell count, unspecified; I08.3 Combined rheumatic disorders of mitral, aortic and tricuspid valves; E78.5 Hyperlipidemia, unspecified; R60.0 Localized edema; R19.7 Diarrhea, unspecified; M19.90 Unspecified osteoarthritis, unspecified site; I83.90 Asymptomatic varicose veins of unspecified lower extremity; F32.A Depression, unspecified; F41.9 Anxiety disorder, unspecified; R61 Generalized hyperhidrosis; Z20.822 Contact with and (suspected) exposure to COVID-19; Z79.82 Long term (current) use of aspirin; Z79.84 Long term (current) use of oral hypoglycemic drugs; Z79.4 Long term (current) use of insulin; Z79.899 Other long term (current) drug therapy; Z91.040 Latex allergy status; Z86.19 Personal history of other infectious and parasitic diseases; Z90.710 Acquired absence of both cervix and uterus; Z96.612 Presence of left artificial shoulder joint; Z96.653 Presence of artificial knee joint, bilateral; Z87.440 Personal history of urinary (tract) infections; Z98.890 Other specified postprocedural states; Z80.6 Family history of leukemia; Z80.0 Family history of malignant neoplasm of digestive organs
CPT/HCPCS: 96376; 96365; 96366; 96372 ×3; 96375; 96361; 99285; 36415; 93005; 93306; 83880; 80053; 80048 ×2; 83735; 84484 ×2; 85025 ×3; 85610; 85730; 81001; 87086; 87077; 87186; 83036; 87635; 71046; G0378 ×3; J0696 ×2; C9113 ×2; J1644 ×3

== ENCOUNTER → 2023-12-28 | Outpatient (CLI) | payer MEDICARE, BC ==
--- NOTE | 2023-12-28 12:52 | CT ---
INDICATION: Patient age:Female; 83 years old; Reason for study: J84.9 INTERSTITIAL PULMONARY DISEASE; [facility]. COMPARISON: Chest radiograph 10/09/2021, CTA chest 01/01/2019 TECHNIQUE: Multiple thin axial images were obtained through the chest at selected intervals. Prone and supine in spiratory along with supine expiratory images were submitted for review. Please note that due to inte rval acquisition images as defined by high-resolution CT protocol the entire lung parenchyma is not e valuated, therefore small nodular densities may not be visualized. Evaluation of vascular structures , viscera and lymphatics is limited due to lack of intravenous contrast administration. One or more C T dose reduction strategies were utilized during this examination. Total DLP 825.70 mGycm. FINDINGS: LUNGS: Diffuse scattered peripheral reticular interstitial opacities with some groundglass changes. N o definitive subpleural sparing. No honeycombing. No architectural distortion. Diffuse mild cylindric al bronchiectasis. Calcified granuloma within the anterior right upper lobe. No acute area of infiltr ative or consolidative change. LARGE AIRWAYS: Central airways are patent. No dynamic airway collapse on expiratory imaging. PLEURA: No pleural effusion or thickening. HEART AND PERICARDIUM: The heart is mildly enlarged. There is no pericardial effusion. Mild coronary artery calcifications present. Thickening and calcification of aortic valve present. MEDIASTINUM AND KELLY: No mediastinal or hilar lymphadenopathy or soft tissue mass. Mediastinal and ri ght hilar calcified nonenlarged lymph nodes. VESSELS: The thoracic aorta is normal in course and caliber. Atherosclerotic calcification of the ao rta and its branches. CHEST WALL AND DIAPHRAGM: Normal. LOWER NECK: Normal. UPPER ABDOMEN: Small hiatal hernia. Gallbladder is not visualized and may be surgically absent. MUSCULOSKELETAL: No acute fracture. Postsurgical changes from left shoulder arthroplasty. Right shou lder arthropathy. Multilevel degenerative changes of the visualized spine. IMPRESSION: Findings of interstitial lung disease possibly NSIP pattern. [facility], , 12/28/2023 12:50 PM
== END | disposition home or self-care (01) ==
LOC: RADCTMAIN 11:31
PROVIDERS: ATTEND Internal Medicine Critical Care Medicine
DX: J84.9 Interstitial pulmonary disease, unspecified (principal)
CPT/HCPCS: 71250